=== PATIENT | female | born 1950 | race Caucasian/White ===

== ENCOUNTER → 2019-09-01 | Outpatient (CLI) | payer MEDICARE ==
--- NOTE | 2019-09-01 15:29 | BD ---
EXAMINATION TYPE: Axial Bone Density DATE OF EXAM: 09/01/2019 COMPARISON: 05/09/2010 CLINICAL HISTORY: Z 78.0 Height: 63.5 IN Weight: 223 LBS FRAX RISK QUESTIONS: Secondary Osteoporosis: 3. Menopause before 45: TOTAL HYST AGE 41 RISK FACTORS HISTORY OF: Family History of Osteoporosis: YES MOTHER Active: YES Postmenopausal woman: TOTAL HYST AGE 41 Take estrogen and/or progesterone medications: NOT NOW How long: TOOK CONTROL FOR 4 YEARS MEDICATIONS: Additional Medications: NEXIUM, BLOOD PRESSURE MEDS, VIT C, EXAM MEASUREMENTS: Bone mineral densitometry was performed using the [employer] System. Bone mineral density as measured about the Lumbar spine is: ----- L1-L4(G/cm2): 1.368 T Score Values are as follows: ----- L2: 1.8 ----- L3: 1.2 ----- L4: 1.5 ----- L1-L4: 1.6 Bone mineral density has: Increased 4.2% since study of: 05/09/2010 Bone mineral density about the R hip (g/cm2): 0.977 Bone mineral density about the L hip (g/cm2): 1.031 T Score values are as follows: -----R Neck: -0.4 -----L Neck: -0.2 -----R Total: 0.5 -----L Total: 0.3 Bone mineral density has: Increased 0.5% since study of: 05/09/2010 IMPRESSION: Normal (Values between +1 and -1 indicate normal bone mass). Consider repeating this study in 5 year s or sooner if there is some new clinical indication. NOTE: T-SCORE=SD OF THE YOUNG ADULT MEAN.
--- NOTE | 2019-09-03 13:51 | MM ---
Reason for exam: screening (asymptomatic). History: Patient is postmenopausal. Took hormonal contraceptives for 4 years. Physical Findings: A clinical breast exam by your physician is recommended on an annual basis and results should be correlated with mammographic findings. MG Screening Mammo w CAD Bilateral CC and MLO view(s) were taken. No prior studies available for comparison. There are scattered fibroglandular densities. Focal asymmetry left upper MLO view. ASSESSMENT: Incomplete: need additional imaging evaluation, BI-RAD 0 RECOMMENDATION: Special view mammogram of the left breast. If lesion persists on supplemental views, image directed ultrasound is recommended. [facility] will attempt to contact patient to return for supplemental views and ultrasound if indicated.
== END | disposition home or self-care (01) ==
LOC: RADMAMWWP 13:51
PROVIDERS: ATTEND Family Medicine
DX: Z12.31 Encounter for screening mammogram for malignant neoplasm of breast (principal); Z78.0 Asymptomatic menopausal state
CPT/HCPCS: 77067; 77080

== ENCOUNTER → 2019-09-25 | Outpatient (CLI) | payer MEDICARE ==
--- NOTE | 2019-09-28 08:09 | MM ---
Reason for exam: additional evaluation requested from abnormal screening. Last mammogram was performed 1 month ago. History: Patient is postmenopausal and history of other cancer. Took hormonal contraceptives for 4 years. Took estrogen for 10 years beginning at age 41. Physical Findings: Nurse did not find any significant physical abnormalities on exam. MG Work Up Mamm w CAD LT LM and spot compression MLO view(s) were taken of the left breast. Prior study comparison: September 01, 2019, bilateral MG screening mammo w CAD. No distinct lesion persists on additional views. These results were verbally communicated with the patient and result sheet given to the patient on 09/25/19. ASSESSMENT: Negative, BI-RAD 1 RECOMMENDATION: Return to routine screening mammogram schedule for both breasts.
== END | disposition home or self-care (01) ==
LOC: RADMAMWWP 14:43
PROVIDERS: ATTEND Family Medicine
DX: R92.8 Other abnormal and inconclusive findings on diagnostic imaging of breast (principal)
CPT/HCPCS: 77065

== ENCOUNTER 2025-03-23 05:39 | Inpatient (IN) | payer MEDICARE ==
[2025-03-23] MEDS: ATORVASTATIN 80 MG TAB PO STA (05:40)
[2025-03-23] MEDS ORDERED: ALPRAZolam 0.25 MG TAB PO PRN (05:40)
[2025-03-23] MEDS: ASPIRIN 325 MG TAB PO STA (05:40)
[2025-03-23] MEDS ORDERED: NITROGLYCERIN SL TABS 0.4 MG TAB SUBLINGUAL PRN (05:40)
[2025-03-23] MEDS ORDERED: ALPRAZolam 0.5 MG TAB PO PRN (05:40)
[2025-03-23 06:24] LABS: Glucose,Whole Blood 125 mg/dL (70-110)
[2025-03-23] MEDS: IV FLUID CONTINUATION 1,000 ML IV ONE (06:49)
[2025-03-23] MEDS: fentaNYL (PF) 50 MCG/ML 2 ML AMP IVP ONE (07:35)
[2025-03-23] MEDS: LIDOCAINE 1% INJ 10MG/ML (20 ML MDV) SQ ONE (07:36)
[2025-03-23] MEDS: VERAPAMIL SYRINGE (5 MG/10 ML) INTRAARTER ONE (07:37)
[2025-03-23] MEDS: HEPARIN SODIUM,PORCINE 10,000 UNIT in SODIUM CHLORIDE 0.9% 1,000 ML IRRIGATION PRN (07:39)
[2025-03-23] MEDS: HEPARIN SODIUM,PORCINE (1 ML) 2,500 UNIT in SODIUM CHLORIDE 0.9% 250 ML IRRIGATION PRN (07:39)
[2025-03-23] MEDS: HEPARIN SODIUM 1,000 UN/ML (10ML VL) IVP ONE (07:45)
[2025-03-23] MEDS: IOPAMIDOL-370 100ML BTL INJ ONE (07:56)
[2025-03-23] MEDS ORDERED: RX INFO: IV CONTRAST WAS GIVEN 1 EACH MISC MISCELLANE PRN (08:14)
[2025-03-23] MEDS: SODIUM CHLORIDE 0.9% 1,000 ML IV SCH (08:15)
--- NOTE | 2025-03-23 08:21 | P.CARDCATH ---
Date of Procedure: 03/23/25 Description of Procedure: Cardiac Catheterization: The patient is a 75-year-old female with a history of hyperlipidemia, hypertension, diabetes who has been complaining of episodes of exertional chest discomfort. She had an abnormal MPI. Recommendations were made regarding cardiac catheterization, the risks and the complications were discussed with the patient who is in full understanding and agreement. Procedure Description: Patient was brought to medical lab specialist in fasting semi-sedated state after receiving Fentanyl and Benadryl achieiving moderate conscious sedated state. Using Xylocaine Anesthesia and modified Seldinger technique, a 6-Portuguese sheath was introduced in the right radial artery . Subsequently, selective coronary angiography was performed using a 5-Portuguese 3.5 bend left Julio and 5 bend right catheter. Multiple views of the coronary artery including hemiaxial views were obtained. The 5 Portuguese pigtail catheter was used to cross the aortic valve and LVEDP was calculated. Following that, catheter and sheath were removed. Hemostasis was obtained with deployment of vascular band . There was no immediate complication. Patient was returned to room in stable condition. Of note, the patient received a total of 5000 units of intravenous heparin as well as intra-arterial verapamil. findings: Fluoroscopy: Severe calcifications of the coronary arteries was noted Left main: This is a large size vessel, bifurcating into LAD and left circumflex, the distal left main has a 50 to 60% plaque LAD: This is a large size vessel, tapers down in the distal third. It gives rise to 2 diagonal branch proximally that has a 50 to 60% plaque at the ostium. The LAD after the takeoff of the first septal metal moulder's assistant has a 95% stenosis, the rest of the vessel has no high-grade stenosis Left circumflex: This is a nondominant vessel, giving rise to a large obtuse marginal branch. The proximal left circumflex has a 60 to 70% stenosis involving the takeoff of the first obtuse marginal branch RCA: This is a large dominant vessel, heavily calcified. It has 99% stenosis at the ostium with slow flow distally. There is collateral from the LAD toward the right PDA Left Ventriculogram: Not performed Hemodynamics: There was no gradient across aortic valve, LVEDP was 16-20 mmHg Conclusion: 1. Calcified coronary arteries 2. Significant disease in the distal left main 3. Severe disease in the ostium of the RCA and proximal LAD 4. Moderate severe disease in the proximal left circumflex Recommendations: In view of the anatomy and the risk factors I have recommended to proceed with evaluation for coronary artery bypass grafting. The findings and the recommendations were discussed with the patient and the family and they were in full understanding and agreement. Duration of sedation is 20 minutes.
[2025-03-23 11:38] LABS: Bilirubin,Urine Negative (Negative); Blood,Urine Negative (Negative); Color,Urine Colorless; Glucose,Urine (UA) Negative (Negative); Ketones,Urine Negative (Negative); Leukocyte Esterase,Urine Negative (Negative); Nitrite,Urine Negative (Negative); PH, Urine 7.0 (5.0-8.0); Protein,Urine Negative (Negative); Specific Gravity,Urine 1.026 (1.001-1.035); Urobilinogen,Urine <2.0 mg/dL (<2.0)
[2025-03-23 11:40] LABS: Glucose,Whole Blood 104 mg/dL (70-110)
--- NOTE | 2025-03-23 12:09 | XR ---
EXAMINATION TYPE: XR chest 2V DATE OF EXAM: 03/23/2025 12:03 PM COMPARISON: None TECHNIQUE: XR chest 2V Frontal and lateral views of the chest. CLINICAL INDICATION:Female, 75 years old with history of PreOp Cardiac Surgery; FINDINGS: Lungs/Pleura: There is no evidence of pleural effusion, focal consolidation, or pneumothorax. Pulmonary vascularity: Central pulmonary vasculature prominence. Heart/mediastinum: Cardiomediastinal silhouette is prominent in size. Musculoskeletal: No acute osseous pathology. DISH of the thoracic spine. IMPRESSION: No acute cardiopulmonary disease/process. [facility], , 03/23/2025 12:07 PM
[2025-03-23] MEDS ORDERED: DEXTROSE 50% SYRINGE 50 ML IVP PRN ×2 (12:28)
[2025-03-23] MEDS ORDERED: FLUTICASONE NASAL 50MCG/SPRAY 16GM BTL INTRANASAL PRN (12:29)
[2025-03-23] MEDS: LINAGLIPTIN 5 MG TABLET PO SCH (12:50)
--- NOTE | 2025-03-23 13:23 | P.GSCN ---
History of Present Illness Consult date: 03/23/25 Reason for Consult: Multivessel coronary artery disease, with left main disease Requesting physician: Garrett Cavanaugh History of present illness: This is a 75-year-old female patient who follows as an outpatient with Dr. Awilda Callahan for her primary care and with Dr. Cavanaugh for her cardiology care. She has a past medical history significant for hypertension, hyperlipidemia, paroxysmal atrial fibrillation on Xarelto for anticoagulation as an outpatient, diabetes mellitus type 2, recent abnormal stress test, mild tricuspid valve regurgitation, moderate mitral valve regurgitation, obesity with a BMI of 38.1 kg/m, gastroesophageal reflux disease, asthma, remote history of COVID in 2019, and is a lifetime non-smoker. In December 2024 according to the patient was hospitalized for 4 days due to some atrial fibrillation with rapid ventricular response. Has follow-up after discharge she underwent a nuclear Anastacia scan Cardiolite stress test on January 25, 2025. The results of the stress test showed nondiagnostic electrocardiographic stress test, and abnormal myocardial perfusion imaging with a large size area of stress-induced ischemia involving the inferior and inferoapical wall with segmental wall motion abnormality in the inferobasal wall consistent with stress-induced ischemia in the right coronary artery territory. Recently, the patient reports she has been having complaints of chest pressure/pain off and on since July 2024. She reports these episodes of chest pressure comes on with activity, and some associated shortness of breath, nausea and fatigue. She denies any recent fever, chills, vomiting, cough, headache, hemoptysis, hematemesis, diaphoresis, presyncope or syncope. In December 2024 the patient underwent a transthoracic 2D echocardiogram which revealed a left ventricular systolic function to be normal with an ejection fraction of 55 to 60%, moderate mitral valve regurgitation, mild tricuspid valve regurgitation and trace to mild pulmonic valve regurgitation. Subsequently, due to the patient's continued episodes of chest discomfort, shortness of breath, and her recent abnormal stress test she was recommended to undergo a cardiac catheterization which was completed today by Dr. Cavanaugh. The heart catheterization revealed calcified coronary arteries with a 50 to 60% stenosis to her distal left main coronary artery, a 95% stenosis to her left anterior descending coronary artery after the takeoff of the first septal physical therapy aides teacher, 2 diagonal branch proximally with a 50 to 60% ostial stenosis, a 60 to 70% stenosis to her proximal left circumflex coronary artery, and a 99% stenosis to the ostium of the right coronary artery. Due to the findings on the cardiac catheterization a consult was placed to Dr. James Ellis from cardiothoracic surgery for further evaluation and treatment recommendations including myocardial revascularization surgery. Review of Systems A review of systems was completed and was negative except except as mentioned in the HPI. Past Medical History Past Medical History: Atrial Fibrillation, Asthma, Diabetes Mellitus, GERD/Reflux, Hyperlipidemia, Hypertension Additional Past Medical History / Comment(s): chest discomfort w/ activity, seasonal allergies, IBS-resolved since discontinued Prilosec. Draining boil -R breast. Hospitalized w/ new onset paroxysmal atrial fibrillation in December 2024. History of Any Multi-Drug Resistant Organisms: None Reported Past Surgical History: Cholecystectomy, Hysterectomy Additional Past Surgical History / Comment(s): Metal clip placed during gallbladder surgery. B/L cataract removal w/ lens implants. Past Anesthesia/Blood Transfusion Reactions: Previous Problems w/ Anesthesia, Postoperative Nausea & Vomiting (PONV) Additional Past Anesthesia/Blood Transfusion Reaction / Comm: Woke up nauseous after laparoscopic procedure prior to hysterectomy. No hx of blood transfusion. Smoking Status: Never smoker Past Alcohol Use History: Rare Past Drug Use History: None Reported - Past Family History Mother Family Medical History: Cancer (Cancer of the cervix), Coronary Artery Disease (CAD), Myocardial Infarction (MA) Additional Family Medical History / Comment(s): Maternal grandmother w/ heart disease. Father Additional Family Medical History / Comment(s): Father had pacemaker. Paternal uncle w/ hx of open heart surgery. Paternal uncle and grandfather had lung CA. Medications and Allergies Home Medications Medication Instructions Recorded Confirmed Type Atorvastatin [Lipitor] 40 mg PO HS 03/22/25 03/23/25 History Calcium Carbonate [Tums] 500 mg PO DAILY PRN 03/22/25 03/22/25 History Cetirizine HCl [Zyrtec] 10 mg PO DAILY PRN 03/22/25 03/22/25 History Cholecalciferol [Vitamin D3 (25 1 dose PO DAILY 03/22/25 03/22/25 History Mcg = 1000 Iu)] Famotidine [Pepcid] 40 mg PO HS 03/22/25 03/23/25 History Fluticasone Nasal [place] [Flonase 1 spray INTRANASAL DAILY PRN 03/22/25 03/23/25 History Nasal [place]] Furosemide [Lasix] 20 mg PO DAILY 03/22/25 03/23/25 History Losartan [Cozaar] 50 mg PO DAILY 03/22/25 03/23/25 History Magnesium 1 dose PO DAILY 03/22/25 03/22/25 History Metoprolol Tartrate [Lopressor] 50 mg PO BID 03/22/25 03/23/25 History Multivitamins, Thera [Multivitamin 1 tab PO DAILY 03/22/25 03/22/25 History (formulary)] Rivaroxaban [Xarelto] 20 mg PO DAILY 03/22/25 03/22/25 History Thiamine [Vitamin B-1] 1 dose PO DAILY 03/22/25 03/22/25 History Zinc Gluconate [Zinc] 1 dose PO DAILY 03/22/25 03/22/25 History sitaGLIPtin [Januvia] 25 mg PO DAILY 03/22/25 03/22/25 History Allergies Allergy/AdvReac Type Severity Reaction Status Date / Time levofloxacin [From Levaquin] Allergy Rash/Hives Verified 03/22/25 12:06 lisinopril Allergy Rash/Hives Verified 03/22/25 12:06 metformin AdvReac Diarrhea Verified 03/22/25 12:06 bandaid adhesive Allergy Rash skin Uncoded 03/22/25 14:37 irritation Surgical - Exam Vital Signs Temp Pulse Resp BP Pulse Ox 97.1 F L 62 16 172/65 98 03/23/25 06:18 03/23/25 06:18 03/23/25 06:18 03/23/25 06:18 03/23/25 06:18 - General well developed, well nourished, no distress, no pain, obese - Eyes PERRL, normal ocular movement, no pale, no icteric - ENT normal pinna, normal nares, normal mucosa, no hearing loss, no congestion, dentures (Upper plate) - Respiratory Lungs essentially clear throughout. No wheezes, rhonchi or crackles. R espirations are symmetrical and nonlabored. - Cardiovascular Regular rhythm and rate. S1 and S2 present, negative for S3, gallop or murmur. No edema present. - Abdomen Abdomen is soft, nontender and nondistended. Active bowel sounds present all 4 abdominal quadrants. No guarding or rigidity. No organomegaly appreciated. - Genitourinary Deferred - Rectum Deferred - Integumentary Skin is warm and dry. No clubbing or cyanosis is present. no rash, no growths, no abnormal pigmentation - Neurologic No focal deficits. - Musculoskeletal Moves all 4 extremities with equal strength bilateral. normal gait, normal posture - Psychiatric oriented to time, oriented to person, oriented to place, speech is normal, memory intact Results - Labs Abnormal Lab Results - Last 24 Hours (Table) 03/23/25 Range/Units 06:21 POC Glucose (mg/dL) 125 H (70-110) mg/dL - Imaging Additional studies: Stress test results, transthoracic 2D echocardiogram results and cardiac catheterization results reviewed. Assessment and Plan Assessment: Multivessel coronary artery disease with left main disease Recent abnormal stress test Hypertension Hyperlipidemia Paroxysmal atrial fibrillation on Xarelto as an outpatient, last dose of Xarelto was on March 19, 2025, currently in normal sinus rhythm Per transthoracic 2D echocardiogram, ejection fraction 55 to 60%, moderate mitral valve regurgitation, mild tricuspid valve regurgitation, and trace to mild pulmonic valve regurgitation Diabetes mellitus type 2 Asthma Remote history of COVID-19 in 2019 Lifetime non-smoker Plan: The patient was seen and examined at her bedside in the extended stay unit. Her is present at her bedside. Her chart and diagnostics were reviewed. Her case was discussed in detail with Dr. James Ellis from cardiothoracic [facility]. The usual course of myocardial vascularization surgery was discussed with the patient and the family. A clinical frailty score was calculated and equals 2. A 5 m walk test was completed with the patient, time 1: Seconds, time 2: Seconds, time 3: Seconds. Patient tolerated well without complaints. Preoperative testing and preoperative teaching has been initiated. The patient will be scheduled for off-pump myocardial revascularization surgery with left internal mammary artery, possible left radial artery harvest, endoscopic vein harvest, exclusion left atrial appendage, bilateral pulmonary vein isolation and intraoperative transesophageal echocardiogram to be completed on March 25, [address] James Ellis. Once the patient's preoperative testing results have been obtained an STS risk or will be calculated and discussed with the patient. Medical management of other comorbidities per internal medicine and cardiology services. Dr. Gomez from pulmonary/critical care medicine will be consulted for pulmonary clearance prior to surgery. More recommendations to follow based on patient's clinical course. Continue to optimize medical management with aspirin, statin and beta-zhane. Thank you Dr. Cavanaugh for this consult and we look forward to working with you in the care of this patient. I have personally seen and examined the patient, performed the documentation and the assessment and plan as written. Number of minutes spent on the visit: 30. DANIELLE Duran
[2025-03-23 14:14] LABS: Basophils # (A) 0.04 10*3/uL (0.00-0.10); Basophils % (A) 0.5 %; Eosinophils # (A) 0.05 10*3/uL (0.04-0.35); Eosinophils % (A) 0.6 %; HCT 38.4 % (37.2-46.3); HGB 12.5 g/dL (12.0-15.0); Lymphocytes # (A) 1.38 10*3/uL (0.90-5.00); Lymphocytes % (A) 16.8 %; MCH 28.0 pg (27.0-32.0); MCHC 32.6 g/dL (32.0-37.0); MCV 86.1 fL (80.0-97.0); Monocytes # (A) 0.41 10*3/uL (0.20-1.00); Monocytes % (A) 5.0 %; Neutrophils # (A) 6.30 10*3/uL (1.80-7.70); Neutrophils % (A) 76.9 %; Platelet Count 221 10*3/uL (140-440); RBC 4.46 10*6/uL (4.10-5.20); RDW 14.1 % (11.5-14.5); WBC 8.20 10*3/uL (4.50-10.00)
--- NOTE | 2025-03-23 14:31 | CT ---
EXAMINATION TYPE: CT chest wo con DATE OF EXAM: 03/23/2025 COMPARISON: None CLINICAL INDICATION: Female, 75 years old with history of Evaluate aorta preop CABG; [facility], Evaluate ao rta preop CABG TECHNIQUE: CT scan of the thorax is performed without IV contrast. CT DLP: 508.[address] CTDI: mGy Automated exposure control for dose reduction was used. FINDINGS: The lungs are clear and there is no suspicious lung mass or nodule. There is a single 2 to 3 mm right upper lobe pulmonary nodule and a few scattered micronodules. There is no airspace consolidation or abnormal interstitial density. There is no pleural effusion or pneumothorax. The heart is not enlarged. Descending thoracic aorta is not enlarged and is approximately 3 cm in shayy iber. There is no mediastinal, hilar or axillary adenopathy. Limited scanning through the upper abdomen reveals cholecystectomy. IMPRESSION: 1. No suspicious lung mass or nodule. 2. No acute cardiopulmonary disease. 3. 3 cm nonenlarged ascending thoracic aorta. 4. Cholecystectomy [facility], , 03/23/2025 2:29 PM
[2025-03-23 14:33] LABS: ALT 25 U/L (4-34); AST 26 U/L (14-36); African American GFR (CKD) 36 (>60 ml/min/1.73 sqM); Albumin 4.0 g/dL (3.5-5.0); Alkaline Phosphatase 106 U/L (38-126); Anion Gap 9 mmol/L; Blood Urea Nitrogen 32 mg/dL (7-17); Calcium 9.5 mg/dL (8.4-10.2); Carbon Dioxide 28 mmol/L (22-30); Chloride 101 mmol/L (98-107); Glucose 136 mg/dL (74-99); Magnesium 1.9 mg/dL (1.6-2.3); Non-African American GFR(CKD) 31 (>60 ml/min/1.73 sqM); Potassium 4.6 mmol/L (3.5-5.1); Sodium 138 mmol/L (137-145); Total Protein 7.0 g/dL (6.3-8.2)
--- NOTE | 2025-03-23 14:33 | P.HPIM ---
History of Present Illness H&P Date: 03/23/25 This is a very pleasant 75-year-old female who was brought in by her registered nurse cardiovascular icu Dr. Cavanaugh and underwent cardiac catheterization this morning as she has been having increasing weakness with shortness of breath and intermittent nausea with intermittent chest pain. Cardiac catheterization revealed calcified coronary arteries, significant disease in the distal left main, severe disease in the ostium of the RCA and proximal LAD, and moderate severe disease in the proximal left circumflex. Cardiology consulted CT surgery for evaluation of possible coronary artery bypass grafting. Patient is being admitted to medicine with CT surgery on consult as well as cardiology. Patient follows with Dr. Deluca in the outpatient setting with a past medical history of atrial fibrillation, asthma, diabetes mellitus, GERD, hyperlipidemia, hypertension, IBS, obesity. Patient rarely drinks, denies any smoking and denies illicit drug use. Patient was recently hospitalized over at [facility] in December of this year and was noted to have new onset atrial fibrillation. Patient reports since then she has been having some increasing shortness of breath and finding it difficult to perform activities that has been progressively getting worse over the last few weeks. CT surgery following and patient is being initiated on CABG workup protocol. Will add Accu-Cheks AC and at bedtime along with insulin regimen for now and we will follow-up on repeat labs in the a.m. REVIEW OF SYSTEMS: CONSTITUTIONAL: No fever, no malaise, no fatigue. HEENT: No recent visual problems or hearing problems. Denied any sore throat. CARDIOVASCULAR: Reports occasional chest pain with exertion, orthopnea, PND, no palpitations, no syncope. PULMONARY: Reports of intermittent shortness of breath, no cough, no hemoptysis. GASTROINTESTINAL: No diarrhea, no nausea, no vomiting, no abdominal pain. NEUROLOGICAL: No headaches, no weakness, no numbness. HEMATOLOGICAL: Denies any bleeding or petechiae. GENITOURINARY: Denies any burning micturition, frequency, or urgency. MUSCULOSKELETAL/RHEUMATOLOGICAL: Denies any joint pain, swelling, or any muscle pain. ENDOCRINE: Denies any polyuria or polydipsia. The rest of the 14-point review of systems is negative. PHYSICAL EXAMINATION: GENERAL: The patient is alert and oriented x3, not in any acute distress. Well developed, elderly appearing, obese HEENT: Pupils are round and equally reacting to light. EOMI. No scleral icterus. No conjunctival pallor. Normocephalic, atraumatic. No pharyngeal erythema. No thyromegaly. CARDIOVASCULAR: S1 and S2 muffled, irregular PULMONARY: Diminished breath sounds bilaterally otherwise chest is clear to auscultation, no wheezing or crackles. ABDOMEN: Soft, obese, nontender, nondistended, normoactive bowel sounds. No pa lpable organomegaly. MUSCULOSKELETAL: No joint swelling or deformity. EXTREMITIES: No cyanosis, clubbing, or pedal edema. NEUROLOGICAL: Gross neurological examination did not reveal any focal deficits. SKIN: No rashes. Assessment: Status postcardiac catheterization today revealing triple-vessel disease with significant disease of the distal left main, ostium of the RCA and proximal LAD, as well as proximal left circumflex, currently undergoing CABG workup with tentative surgery on , 03/25/[address] surgery History of atrial fibrillation, new onset in December 2024 History of asthma, not in exacerbation Diabetes mellitus, type II GERD Hyperlipidemia Hypertension Obesity with a BMI of 38.1 History of previous IBS, resolved GI prophylaxis DVT prophylaxis Full code Plan: Patient underwent cardiac catheterization this morning with Dr. Cavanaugh her primary registered nurse cardiovascular icu and was noted to have triple-vessel disease is currently being evaluated by CT surgery undergoing possible CABG workup and tentatively scheduled for surgical intervention on , 03/25/2025. Patient will remain hospitalized and will place consult to pulmonary winder operator as well as cardiology and continue ongoing CT surgery workup Continue Accu-Cheks AC and at bedtime and will add sliding scale and adjust insulins accordingly, hemoglobin A1c is pending Follow-up on repeat labs and replace electrolytes per protocol Home meds will be reviewed and resumed as appropriate The impression and plan of care has been dictated by Billie Padilla, Nurse Practitioner as directed. Dr. Jazmyne MD I have performed a history and examination and MDM of this patient, discussed the same with the dictator, and agree with the dictator's assessment and plan as written ,documented as a scribe. Based on total visit time, I have performed more than 50% of the visit. Past Medical History Past Medical History: Atrial Fibrillation, Diabetes Mellitus, Hyperlipidemia, Hypertension Additional Past Medical History / Comment(s): chest discomfort w/ activity, seasonal allergies, IBS-resolved since discontinued Prilosec. Draining boil -R breast. Hospitalized w/ new onset Afib December 2024. History of Any Multi-Drug Resistant Organisms: None Reported Past Surgical History: Cholecystectomy, Hysterectomy Additional Past Surgical History / Comment(s): Metal clip placed during gallbladder surgery. B/L cataract removal w/ lens implants. Past Anesthesia/Blood Transfusion Reactions: Previous Problems w/ Anesthesia, Postoperative Nausea & Vomiting (PONV) Additional Past Anesthesia/Blood Transfusion Reaction / Comment(s): Woke up nauseous after laparoscopic procedure prior to hysterectomy. No hx of blood transfusion. Smoking Status: Never smoker - Past Family History Mother Family Medical History: Myocardial Infarction ([place]) Additional Family Medical History / Comment(s): Maternal grandmother w/ heart disease. Father Additional Family Medical History / Comment(s): Father had pacemaker. Paternal uncle w/ hx of open heart surgery. Paternal uncle and grandfather had lung CA. Medications and Allergies Home Medications Medication Instructions Recorded Confirmed Type Atorvastatin [Lipitor] 40 mg PO HS 03/22/25 03/23/25 History Calcium Carbonate [Tums] 500 mg PO DAILY PRN 03/22/25 03/22/25 History Cetirizine HCl [Zyrtec] 10 mg PO DAILY PRN 03/22/25 03/22/25 History Cholecalciferol [Vitamin D3 (25 1 dose PO DAILY 03/22/25 03/22/25 History Mcg = 1000 Iu)] Famotidine [Pepcid] 40 mg PO HS 03/22/25 03/23/25 History Fluticasone Nasal [place] [Flonase 1 spray INTRANASAL DAILY PRN 03/22/25 03/23/25 History Nasal [place]] Furosemide [Lasix] 20 mg PO DAILY 03/22/25 03/23/25 History Losartan [Cozaar] 50 mg PO DAILY 03/22/25 03/23/25 History Magnesium 1 dose PO DAILY 03/22/25 03/22/25 History Metoprolol Tartrate [Lopressor] 50 mg PO BID 03/22/25 03/23/25 History Multivitamins, Thera [Multivitamin 1 tab PO DAILY 03/22/25 03/22/25 History (formulary)] Rivaroxaban [Xarelto] 20 mg PO DAILY 03/22/25 03/22/25 History Thiamine [Vitamin B-1] 1 dose PO DAILY 03/22/25 03/22/25 History Zinc Gluconate [Zinc] 1 dose PO DAILY 03/22/25 03/22/25 History sitaGLIPtin [Januvia] 25 mg PO DAILY 03/22/25 03/22/25 History Allergies Allergy/AdvReac Type Severity Reaction Status Date / Time levofloxacin [From Levaquin] Allergy Rash/Hives Verified 03/22/25 12:06 lisinopril Allergy Rash/Hives Verified 03/22/25 12:06 metformin AdvReac Diarrhea Verified 03/22/25 12:06 bandaid adhesive Allergy Rash skin Uncoded 03/22/25 14:37 irritation Physical Exam Vitals: Vital Signs Temp Pulse Resp BP BP Pulse Ox 03/23/25 11:34 59 L 20 155/66 99 03/23/25 09:59 61 20 147/65 98 03/23/25 09:28 65 16 134/63 98 03/23/25 08:59 66 16 132/60 97 03/23/25 08:44 62 16 110/70 99 03/23/25 08:29 66 16 138/65 98 03/23/25 08:14 67 16 170/55 98 03/23/25 06:20 156/55 03/23/25 06:18 97.1 F L 62 16 172/65 98 Intake and Output 03/22/25 03/23/25 03/23/25 22:59 06:59 14:59 Intake Total 400 200 Balance 400 200 Intake: IV 400 200 Other: # Voids 1 Weight 100.8 kg Results CBC & Chem 7: 03/23/25 13:47 Labs: Abnormal Lab Results - Last 24 Hours (Table) 03/23/25 Range/Units 06:21 POC Glucose (mg/dL) 125 H (70-110) mg/dL
[2025-03-23 14:36] LABS: INR 1.0 (<1.2); Partial Thromboplastin Time 26.4 sec (22.0-30.0); Prothrombin Time 10.7 sec (10.0-12.5)
[2025-03-23] MEDS: SODIUM CHLORIDE 0.9% 1,000 ML in EMPTY BAG 1 BAG IV ONE (15:25)
[2025-03-23] MEDS ORDERED: Magnesium Replacement Protocol 1 EACH MISC MISCELLANE PRN (15:31)
--- NOTE | 2025-03-23 15:31 | US ---
EXAMINATION TYPE: US vein mapping BILAT DATE OF EXAM: 03/23/2025 3:23 PM COMPARISON: NONE CLINICAL INDICATION: Female, 75 years old with history of PreOp Cardiac Surgery; preop, Preop- Cardia c Surgery TECHNIQUE: Grayscale and color Doppler imaging of the lower extremity venous system. SIDE PERFORMED: Bilateral FINDINGS: DUPLEX FINDINGS: Greater Saphenous: Color flow seen Lesser Saphenous: Color flow seen Measurements in mm: Right Greater Saphenous: Groin: 5.4 x 5.1 mm High Thigh: 4.5 x 3.8 mm Mid Thigh: 3.8 x 3.5 mm Above Knee: 2.6 x 2.2 mm Knee: 3.6 x 2.8 mm Below Knee: 2.1 x 1.2 mm Mid Calf: 1.3 x .9 mm At Ankle: 2.6 x 2.0 mm Left Greater Saphenous: Groin: 5.7 x 5.1 mm High Thigh: 5.8 x 3.9 mm Mid Thigh: 4.7 x 3.5 mm Above Knee: 4.7 x 3.8 mm Knee: 3.7 x 2.4 mm Below Knee: 2.7 x 2.3 mm Mid Calf: 3.0 x 2.3 mm At Ankle: 3.1 x 2.8 mm IMPRESSION: 1. No evidence for occlusion. 2. GSV measurements listed above. 3. Performing surgeon to determine viability as conduit. [facility], , 03/23/2025 3:28 PM
--- NOTE | 2025-03-23 15:32 | US ---
EXAMINATION TYPE: Pre-Operative Non-Invasive Evaluation of the hand for Potential Radial Artery Conr[place] , Measurements only DATE OF EXAM: 03/23/2025 3:23 PM CLINICAL INDICATION: Female, 75 years old with history of Pre-Op Cardiac Surgery; preop, Preop- Cardi ac Surgery TECHNIQUE:Grayscale and color Doppler imaging of the radial artery(s) SIDE PERFORMED: Left FINDINGS: Dominant hand: Right Duplex Findings: Radial Artery: Color flow seen Measurements in mm, transverse view: Left Radial: Proximal: 1.0 x .8 mm Mid: 2.0 x 1.5 mm Distal: 1.7 x 1.4 mm IMPRESSION: 1. No evidence for vascular occlusion. 2. Measurements as described above. [facility], , 03/23/2025 3:29 PM
--- NOTE | 2025-03-23 15:34 | US ---
EXAMINATION TYPE: US carotid duplex BILAT DATE OF EXAM: 03/23/2025 COMPARISON: NONE CLINICAL INDICATION: Female, 75 years old with history of Pre-Op Cardiac Surgery; preop Additional History: Z01.81- Pre-operative exam TECHNIQUE: Grayscale, color Doppler and spectral Doppler evaluation of the bilateral carotid systems and vertebral arteries. Indirect Doppler criteria was utilized. FINDINGS: EXAM MEASUREMENTS: RIGHT: Peak Systolic Velocity (PSV) cm/sec ----- Right CCA: 53.7 ----- Right ICA: 109.2 ----- Right ECA: 93.0 ICA/CCA ratio: 2.0 RIGHT: End Diastole cm/sec ----- Right CCA: 10.9 ----- Right ICA: 25.2 ----- Right ECA: 2.9 LEFT: Peak Systolic Velocity (PSV) cm/sec ----- Left CCA: 77.0 ----- Left ICA: 101.5 ----- Left ECA: 113.4 ICA/CCA ratio: 1.3 LEFT: End Diastole cm/sec ----- Left CCA: 19.5 ----- Left ICA: 20.7 ----- Left ECA: 7.2 VERTEBRALS (direction of flow): Right Vertebral: Antegrade Left Vertebral: Antegrade Rhythm: Normal HEAD CORRECTION OFFICER NOTES: plaque in right bulb Color Doppler imaging shows patency with blood flow throughout the carotid artery. Spectral waveforms are within normal limits. IMPRESSION: Right: Less than 50% stenosis of the carotid bifurcation. Left: Less than 50% stenosis of the carotid bifurcation. Criteria for Assigning % of Stenosis / Diameter reduction (Estimation based on the indirect measurements of the internal carotid artery velocities (ICA PSV). 1. Normal (no stenosis)=ICA PSV < 180 cm/s: ratio < 2.0: ICA EDV<40 cm/s. 2. Less than 50% stenosis=ICA PSV < 180 cm/s: ratio < 2.0: ICA EDV<40 cm/s. 3. 50 to 69% stenosis=ICA PSV of 180 to 230 cm/s: ration 2.0 ? 4.0: ICA EDV 40-100 cm/s. PSV 125-180 cm/sec and ICA/CCA PSV Ratio ? 2.0 is also consistent with 50-69% stenosis 4. Greater than 70% stenosis to near occlusion= ICA PSV > 230 cm/s: ratio > 4.0: ICA EDV > 100 cm/s. 5. Near occlusion= ICA PSV velocities may be low or undetectable: variable ratio and ICA EDV. 6. Total occlusion=unable to detect flow. [facility], , 03/23/2025 3:31 PM
[2025-03-23] MEDS: MAGNESIUM SULFATE-D5W PMX 1 GM in DEXTROSE/WATER 1 100ML.BAG IVPB ONE (16:21)
[2025-03-23 16:56] LABS: Glucose,Whole Blood 95 mg/dL (70-110)
[2025-03-23] MEDS: INSULIN LISPRO (HumaLOG) 100 UNIT/ML 10 mL VL SQ SCH (17:01)
[2025-03-23 19:57] LABS: Cholesterol 128.00 mg/dL (0.00-200.00); HDL Cholesterol 53.90 mg/dL (40.00-60.00); LDL Cholesterol,Calculated 31.7 mg/dL (0.0-131.0); Triglycerides 212.00 mg/dL (0.00-149.00); VLDL Calculation 42.40 mg/dL (5.00-40.00)
[2025-03-23 20:20] LABS: Glucose,Whole Blood 100 mg/dL (70-110)
[2025-03-23] MEDS: MUPIROCIN 2% OINT 22 GM TUBE NASAL SCH (20:57)
[2025-03-23] MEDS: METOPROLOL TARTRATE 50 MG TAB PO SCH (20:57)
[2025-03-23] MEDS: ATORVASTATIN 40 MG TAB PO SCH (20:57)
[2025-03-23 21:15] LABS: Hepatitis A Antibody IgM Nonreactive (Nonreactive); Hepatitis B Surface Antigen Nonreactive (Nonreactive); Hepatitis C IgG Antibody Nonreactive (Nonreactive)
[2025-03-24 06:36] LABS: Glucose,Whole Blood 96 mg/dL (70-110)
[2025-03-24 07:34] LABS: Basophils # (A) 0.04 10*3/uL (0.00-0.10); Basophils % (A) 0.5 %; Eosinophils # (A) 0.13 10*3/uL (0.04-0.35); Eosinophils % (A) 1.6 %; HCT 39.1 % (37.2-46.3); HGB 12.4 g/dL (12.0-15.0); Lymphocytes # (A) 2.11 10*3/uL (0.90-5.00); Lymphocytes % (A) 26.7 %; MCH 27.6 pg (27.0-32.0); MCHC 31.7 g/dL (32.0-37.0); MCV 87.1 fL (80.0-97.0); Monocytes # (A) 0.56 10*3/uL (0.20-1.00); Monocytes % (A) 7.1 %; Neutrophils # (A) 5.05 10*3/uL (1.80-7.70); Neutrophils % (A) 63.8 %; Platelet Count 211 10*3/uL (140-440); RBC 4.49 10*6/uL (4.10-5.20); RDW 14.2 % (11.5-14.5); WBC 7.91 10*3/uL (4.50-10.00)
[2025-03-24 07:43] LABS: ALT 23 U/L (4-34); AST 24 U/L (14-36); African American GFR (CKD) 41 (>60 ml/min/1.73 sqM); Albumin 3.9 g/dL (3.5-5.0); Alkaline Phosphatase 90 U/L (38-126); Anion Gap 8 mmol/L; Blood Urea Nitrogen 30 mg/dL (7-17); Calcium 9.3 mg/dL (8.4-10.2); Carbon Dioxide 29 mmol/L (22-30); Chloride 104 mmol/L (98-107); Glucose 101 mg/dL (74-99); Magnesium 2.2 mg/dL (1.6-2.3); Non-African American GFR(CKD) 35 (>60 ml/min/1.73 sqM); Potassium 4.7 mmol/L (3.5-5.1); Sodium 141 mmol/L (137-145); Total Protein 6.8 g/dL (6.3-8.2)
[2025-03-24] MEDS: MD COMMUNICATION TO PHARMACY 1 EACH MISC PO ONE ×4 (08:39→08:40)
[2025-03-24] MEDS: ASPIRIN 325 MG TAB PO SCH (08:44)
[2025-03-24] MEDS: MULTIVITAMINS, THERA 1 EACH TAB PO SCH (08:44)
[2025-03-24] MEDS ORDERED: LOSARTAN 50 MG TAB PO SCH (09:00)
--- NOTE | 2025-03-24 10:55 | P.PN ---
Subjective Progress Note Date: 03/24/25 Principal diagnosis: Multivessel coronary artery disease, with left main disease. Past medical history significant for hypertension, hyperlipidemia, paroxysmal atrial fibrillation on Xarelto for anticoagulation as an outpatient, diabetes mellitus type 2, recent abnormal stress test, mild tricuspid valve regurgitation, moderate mitral valve regurgitation, obesity with a BMI of 38.1 kg/m, gastroesophageal reflux disease, asthma, remote history of COVID in 2019, and is a lifetime non-smoker. The patient was seen and examined in follow-up today March 24, 2025 at her bedside on the third floor cardiac stepdown unit. She is currently ambulating in her room, and tolerating well. She denies any complaints of pain or shortness of breath. Preoperative teaching has been reinforced with the patient, and her questions have been answered. A preoperative cardiac surgery booklet has been given to the patient and reviewed with the patient. She is scheduled for off- pump myocardial revascularization surgery with left internal mammary artery, endoscopic vein harvest, exclusion left atrial appendage, pulmonary vein isolation and intraoperative transesophageal echocardiogram to be completed tomorrow March 25, [address] Dr. Ellis met with the patient today, reviewed the findings on the cardiac catheterization films with the patient. Treatment recommendations discussed with the patient including myocardial vascularization surgery. Risks and benefits including the STS risk core were discussed with the patient and knowing and understanding the risks the patient wished to proceed with the surgical option. Oxygen saturations are 99% on room air and she is achieving 3000 mL on her incentive spirometry with encouragement. Remote telemetry is showing normal sinus rhythm heart rate 60 bpm. Her last dose of Xarelto was on March 19, 2025. A 5 m walk test was completed with the patient yesterday 03/23/2025, time 1: 2.98 seconds, time 2: 2.98 seconds, time 3: 3.11 seconds. Patient tolerated well without complaints. A clinical frailty score was calculated which equaled 2. A carotid duplex study was completed which showed less than 50% stenosis to her bilateral internal carotid arteries. Objective - Vital Signs Vital signs: Vital Signs Temp 97.8 F 03/24/25 04:00 Pulse 59 L 03/24/25 04:00 Resp 17 03/24/25 04:00 BP 148/62 03/24/25 04:00 Pulse Ox 99 03/24/25 04:00 FiO2 Intake & Output 03/23/25 03/24/25 03/24/25 18:59 06:59 18:59 Intake Total 836 240 Balance 836 240 Weight 100.4 kg Intake: IV 600 Oral 236 240 Other: Voiding Method Toilet Toilet # Voids 1 - Exam CONSTITUTIONAL: appears comfortable, cooperative, no apparent acute distress. HEENT: Neck is supple, no JVD, no lymphadenopathy. RESPIRATORY: Lungs sounds essentially clear throughout. Respirations are symmetrical and nonlabored. Currently on room air with oxygen saturations 99%. Able to achieve 3000 mL on their incentive spirometry. Strong cough. CARDIOVASCULAR: Regular rhythm and rate. S1 and S2 present, negative for S3, gallop or murmur. No calf pain or tenderness noted. GASTROINTESTINAL: Abdomen soft, nontender, nondistended. Active bowel sounds present 4 quadrants. Tolerating diet. Passing flatus. No guarding or rigidity. GENITOURINARY: Continues to void. INTEGUMENTARY: Skin is warm and dry with no evidence of clubbing or cyanosis. NEUROLOGIC: Cranial nerves II through XII intact. No focal deficits. MUSKULOSKELETAL: Able to move all extremities, strength equal bilaterally. PSYCHIATRIC: Alert and oriented to person place and time, appropriate affect, intact judgment and insight. - Allied health notes Allied health notes reviewed: nursing - Labs CBC & Chem 7: 03/24/25 06:33 03/24/25 06:33 Labs: Abnormal Lab Results - Last 24 Hours (Table) 03/23/25 03/23/25 03/24/25 Range/Units 13:47 13:47 06:33 MCHC (32.0-37.0) g/dL BUN 32 H (7-17) mg/dL Creatinine 1.60 H (0.52-1.04) mg/dL Glucose 136 H (74-99) mg/dL Hemoglobin A1c 6.5 H (<=6.0) % Triglycerides 212.00 H (0.00-149.00) mg/dL VLDL Cholesterol, Calc 42.40 H (5.00-40.00) mg/dL Crossmatch See Detail 03/24/25 03/24/25 Range/Units 06:33 06:33 MCHC 31.7 L (32.0-37.0) g/dL BUN 30 H (7-17) mg/dL Creatinine 1.44 H (0.52-1.04) mg/dL Glucose 101 H (74-99) mg/dL Hemoglobin A1c (<=6.0) % Triglycerides (0.00-149.00) mg/dL VLDL Cholesterol, Calc (5.00-40.00) mg/dL Crossmatch - Imaging and Cardiology Chest x-ray: report reviewed, image reviewed Carotid duplex study reviewed. Assessment and Plan Assessment: Multivessel coronary artery disease with left main disease Recent abnormal stress test Hypertension Hyperlipidemia Paroxysmal atrial fibrillation on Xarelto as an outpatient, last dose of Xarelto was on March 19, 2025, currently in normal sinus rhythm Per transthoracic 2D echocardiogram, ejection fraction 55 to 60%, moderate mitral valve regurgitation, mild tricuspid valve regurgitation, and trace to mild pulmonic valve regurgitation Diabetes mellitus type 2 Asthma Remote history of COVID-19 in 2019 Lifetime non-smoker Plan: Preoperative teaching has been reinforced with the patient. A 5 m walk test was completed with the patient yesterday 03/23/2025, time 1: 2.98 seconds, time 2: 2.98 seconds, time 3: 3.11 seconds. Patient tolerated well without complaints. Encourage use of incentive spirometry 10 times every hour while awake. An STS risk core was calculated and discussed with the patient. N.p.o. after midnight. The patient is scheduled for off-pump myocardial revascularization surgery with left internal mammary artery, endoscopic vein harvest, pulmonary vein isolation, exclusion left atrial appendage, and intraoperative transesophageal echo cardiogram tomorrow 03/25/2025 to be performed by Dr. James Ellis. Continue to optimize medical management with aspirin, statin and beta-zhane. More recommendations to follow based on patient's clinical course. Time with Patient: Greater than 30
[2025-03-24 11:29] LABS: Glucose,Whole Blood 94 mg/dL (70-110)
--- NOTE | 2025-03-24 11:46 | CA ---
Transthoracic Echo Report Name: Vibha Anand Age: 75 Gender: F : 1950 Exam Date: 03/24/2025 08:45 Exam Location: [facility] Ht (in): 64 Wt (lb): 221 Ordering Physician: Garrett Cavanaugh MD ([id number]) Attending/Referring Phys: [employer] Software Engineer Geno Garcia RDCS Procedure CPT: Indications: CAD Cardiac Hx: Technical Quality: Fair Contrast 1: Total Dose (mL): Contrast 2: Total Dose (mL): MEASUREMENTS (Male / Female) Normal Values 2D ECHO LV Diastolic Diameter PLAX 4.5 cm 4.2 - 5.9 / 3.9 - 5.3 cm LV Systolic Diameter PLAX 2.8 cm IVS Diastolic Thickness 1.4 cm 0.6 - 1.0 / 0.6 - 0.9 cm LVPW Diastolic Thickness 1.3 cm 0.6 - 1.0 / 0.6 - 0.9 cm LV Relative Wall Thickness 0.6 RV Internal Dim ED PLAX 2.5 cm LV Diastolic Volume MOD BP 74.9 cm??? 67 - 155 / 56 - 104 cm??? LV Systolic Volume MOD BP 24.9 cm??? 22 - 58 / 19 - 49 cm??? LV Ejection Fraction MOD BP 66.7 % >= 55 % LV Cardiac Index MOD BP 1399.9 cm???/min???m??? LV Diastolic Volume MOD 4C 67.2 cm??? LV Systolic Volume MOD 4C 30.0 cm??? LV Ejection Fraction MOD 4C 55.4 % LV Cardiac Index MOD 4C 1043.7 cm???/min???m??? LV Diastolic Length 4C 7.8 cm LV Systolic Length 4C 6.2 cm LV Diastolic Volume MOD 2C 82.0 cm??? LV Systolic Volume MOD 2C 29.4 cm??? LV Ejection Fraction MOD 2C 64.1 % LV Cardiac Index MOD 2C 1473.7 cm???/min???m??? LV Diastolic Length 2C 8.0 cm LV Systolic Length 2C 6.2 cm LA Volume 44.9 cm??? 18 - 58 / 22 - 52 cm??? LA Volume Index 20.7 cm???/m??? 16 - 28 cm???/m??? M-MODE Aortic Root Diameter MM 2.9 cm LA Systolic Diameter MM 4.5 cm LA Ao Ratio MM 1.5 AV Cusp Separation MM 1.9 cm DOPPLER AV Peak Velocity 149.0 cm/s AV Peak Gradient 8.9 mmHg MV Area PHT 4.2 cm??? Mitral E Point Velocity 85.2 cm/s Mitral A Point Velocity 72.3 cm/s Mitral E to A Ratio 1.2 MV Deceleration Time 181.5 ms FINDINGS Left Ventricle Left ventricular ejection fraction is estimated at 55-60%. Normal left ventricular systolic function with no obvious regional wall motion abnormalities. Moderately increased septal wall thickness. Mildly increased posterior wall thickness. Left ventricular cavity size normal. Right Ventricle Normal right ventricular size and function. Right ventricular systolic pressure within normal limits. Right Atrium Normal right atrial size. Left Atrium Mild left atrial dilatation. Mitral Valve Structurally normal mitral valve. No mitral stenosis. [id number] mitral regurgitation. Aortic Valve Trileaflet aortic valve. No aortic valve stenosis or regurgitation. Diffuse thickening (sclerosis) of the aortic valve cusps without reduced excursion. Tricuspid Valve Structurally normal tricuspid valve. Trace tricuspid regurgitation. No tricuspid stenosis. Pulmonic Valve Structurally normal pulmonic valve. Mild pulmonic regurgitation. No pulmonic stenosis. Pericardium No pericardial or pleural effusion. Aorta Normal size aortic root and proximal ascending aorta. CONCLUSIONS Reason: Coronary artery disease LVH with preserved systolic function Mild left atrial enlargement Previewed by: Dr. Jose Fisher MD (Electronically Signed) Final Date: 24 March 2025 11:45
[2025-03-24] MEDS: THIAMINE 100 MG TAB PO SCH (12:00)
--- NOTE | 2025-03-24 13:03 | P.CRDCN ---
History of Present Illness Consult date: 03/24/25 History of present illness: HISTORY OF PRESENTING ILLNESS: 77-year-old follows up with Dr. Cavanaugh. History of hypertension dyslipidemia paroxysmal atrial fibrillation anticoagulation with Xarelto. Type 2 diabetes. As an outpatient because of symptoms of palpitations and nonspecific symptoms of decreased exercise capacity increased fatigue shortness of breath she had a stress test done which was abnormal showing large reversible perfusion defect in inferior and inferoapical segments.. For this she underwent cardiac catheterization which showed 50 to 60% distal left main, 95% LAD after first septal takeoff, second annular branch had 50 to 60% ostial stenosis, 70% stenosis in proximal LCx, 99% stenosis in ostium of RCA. Due to multivessel disease, CT surgery team was requested to evaluate the patient for possible CABG . At the time of evaluation she is comfortable denies any active chest pain chest pressure shortness of breath. Right radial site appears intact with no signs of hematoma or bleeding, intact radial pulse. Labs and vitals were essentially within acceptable range ......................................................................... ..................................................................... [facility] Vitals: 145/80, heart rate 59 [facility] Labs: Hb 12.5, BUN 32, creatinine 1.6, repeat creatinine 1.4, A1c of 6.5, LDL 31, HDL 53, TG G212, TSH 2.6 ........................................................................... ................................................................... Prior cardiac testing: Echo EF 55%, mild concentric LVH, aortic sclerosis, mild to moderate mitral regurgitation, cardiac catheterization showed 50 to 60% distal left main, 95% LAD after first septal takeoff, second annular branch had 50 to 60% ostial stenosis, 70% stenosis in proximal LCx, 99% stenosis in ostium of RCA ........ ................................................................................ ...................................................... REVIEW OF SYSTEMS: 14 point review of system is negative except what is mentioned above in HPI. ..................................................................... ......................................................................... PHYSICAL EXAMINATION: Neck: Brisk carotid upstroke, no jugular venous distention. Lungs: Clear to auscultation. Heart: Regular rate and rhythm, S1-S2, , no murmur or rub. Abdomen: Soft nontender, positive bowel sounds. Extremities: No edema, intact distal pulses. Neuro: Alert, oritented, no focal deficits. Detailed neuro exam was not performed. .............................................................................. ................................................................ ASSESSMENT: # Multivessel CAD as described above # Paroxysmal atrial fibrillation, currently sinus rhythm # Type 2 diabetes # Essential hypertension, dyslipidemia # Obesity PLAN: I recommend CABG, pulmonary vein isolation with Arshad-Maze, left atrial appendage ligation Aspirin, Lipitor, beta-zhane Monitor blood pressure heart rate Supportive care Pedro Mays MD, FAC, RPVI Past Medical History Past Medical History: Atrial Fibrillation, Diabetes Mellitus, Hyperlipidemia, Hypertension Additional Past Medical History / Comment(s): chest discomfort w/ activity, seasonal allergies, IBS-resolved since discontinued Prilosec. Draining boil -R breast. Hospitalized w/ new onset Afib December 2024. History of Any Multi-Drug Resistant Organisms: None Reported Past Surgical History: Cholecystectomy, Hysterectomy Additional Past Surgical History / Comment(s): Metal clip placed during gallbla dder surgery. B/L cataract removal w/ lens implants. Past Anesthesia/Blood Transfusion Reactions: Previous Problems w/ Anesthesia, Postoperative Nausea & Vomiting (PONV) Additional Past Anesthesia/Blood Transfusion Reaction / Comment(s): Woke up naus eous after laparoscopic procedure prior to hysterectomy. No hx of blood transfusion. Smoking Status: Never smoker - Past Family History Mother Family Medical History: Myocardial Infarction ([place]) Additional Family Medical History / Comment(s): Maternal grandmother w/ heart disease. Father Additional Family Medical History / Comment(s): Father had pacemaker. Paternal uncle w/ hx of open heart surgery. Paternal uncle and grandfather had lung CA. Medications and Allergies Home Medications Medication Instructions Recorded Confirmed Type Atorvastatin [Lipitor] 40 mg PO HS 03/22/25 03/23/25 History Calcium Carbonate [Tums] 500 mg PO DAILY PRN 03/22/25 03/22/25 History Cetirizine HCl [Zyrtec] 10 mg PO DAILY PRN 03/22/25 03/22/25 History Cholecalciferol [Vitamin D3 (25 1 dose PO DAILY 03/22/25 03/22/25 History Mcg = 1000 Iu)] Famotidine [Pepcid] 40 mg PO HS 03/22/25 03/23/25 History Fluticasone Nasal [place] [Flonase 1 spray INTRANASAL DAILY PRN 03/22/25 03/23/25 History Nasal [place]] Furosemide [Lasix] 20 mg PO DAILY 03/22/25 03/23/25 History Losartan [Cozaar] 50 mg PO DAILY 03/22/25 03/23/25 History Magnesium 1 dose PO DAILY 03/22/25 03/22/25 History Metoprolol Tartrate [Lopressor] 50 mg PO BID 03/22/25 03/23/25 History Multivitamins, Thera [Multivitamin 1 tab PO DAILY 03/22/25 03/22/25 History (formulary)] Rivaroxaban [Xarelto] 20 mg PO DAILY 03/22/25 03/22/25 History Thiamine [Vitamin B-1] 1 dose PO DAILY 03/22/25 03/22/25 History Zinc Gluconate [Zinc] 1 dose PO DAILY 03/22/25 03/22/25 History sitaGLIPtin [Januvia] 25 mg PO DAILY 03/22/25 03/22/25 History Allergies Allergy/AdvReac Type Severity Reaction Status Date / Time levofloxacin [From Levaquin] Allergy Rash/Hives Verified 03/22/25 12:06 lisinopril Allergy Rash/Hives Verified 03/22/25 12:06 metformin AdvReac Diarrhea Verified 03/22/25 12:06 bandaid adhesive Allergy Rash skin Uncoded 03/22/25 14:37 irritation Physical Exam Vitals: Vital Signs Temp Pulse Pulse Resp BP Pulse Ox 03/24/25 12:02 56 L 16 145/80 99 03/24/25 04:00 97.8 F 59 L 17 148/62 99 03/24/25 02:00 58 L 03/24/25 00:00 98.0 F 55 L 17 115/59 100 03/23/25 20:00 97.9 F 60 17 152/66 100 03/23/25 15:35 60 16 151/74 100 Intake and Output 03/23/25 03/24/25 03/24/25 22:59 06:59 14:59 Intake Total 476 250 Balance 476 250 Intake: IV 10 Invasive Line 2 10 Oral 476 240 Other: Voiding Method Toilet Toilet Toilet Weight 100.4 kg Results 03/24/25 06:33 03/24/25 06:33 Cardiac Enzymes 03/23/25 03/24/25 Range/Units 13:47 06:33 AST 26 24 (14-36) U/L Coagulation 03/23/25 Range/Units 13:47 PT 10.7 (10.0-12.5) sec APTT 26.4 (22.0-30.0) sec Lipids 03/23/25 Range/Units 13:47 Triglycerides 212.00 H (0.00-149.00) mg/dL Cholesterol 128.00 (0.00-200.00) mg/dL HDL Cholesterol 53.90 (40.00-60.00) mg/dL Cholesterol/HDL Ratio 2.37 Ratio CBC 03/23/25 03/24/25 Range/Units 13:47 06:33 WBC 8.20 7.91 (4.50-10.00) 10*3/uL RBC 4.46 4.49 (4.10-5.20) 10*6/uL Hgb 12.5 12.4 (12.0-15.0) g/dL Hct 38.4 39.1 (37.2-46.3) % Plt Count 221 211 (140-440) 10*3/uL Comprehensive Metabolic Panel 03/23/25 03/24/25 Range/Units 13:47 06:33 Sodium 138 141 (137-145) mmol/L Potassium 4.6 4.7 (3.5-5.1) mmol/L Chloride 101 104 (98-107) mmol/L Carbon Dioxide 28 29 (22-30) mmol/L BUN 32 H 30 H (7-17) mg/dL Creatinine 1.60 H 1.44 H (0.52-1.04) mg/dL Glucose 136 H 101 H (74-99) mg/dL Calcium 9.5 9.3 (8.4-10.2) mg/dL AST 26 24 (14-36) U/L ALT 25 23 (4-34) U/L Alkaline Phosphatase 106 90 (38-126) U/L Total Protein 7.0 6.8 (6.3-8.2) g/dL Albumin 4.0 3.9 (3.5-5.0) g/dL Current Medications Generic Name Dose Route Start Last Admin Trade Name Freq PRN Reason Stop Dose Admin Alprazolam 0.25 mg 03/23/25 05:40 Alprazolam 0.25 Mg Tab PO 04/22/25 05:39 Q6HR PRN Mild Anxiety Alprazolam 0.5 mg 03/23/25 05:40 Alprazolam 0.5 Mg Tab PO 04/22/25 05:39 Q6HR PRN Moderate Anxiety Aspirin 325 mg 03/25/25 05:00 Aspirin 325 Mg Tab PO 03/25/25 05:01 ONCE ONE Aspirin 81 mg 03/25/25 09:00 Aspirin 325 Mg Tab PO DAILY LINUS Atorvastatin Calcium 40 mg 03/23/25 21:00 03/23/25 20:57 Atorvastatin 40 Mg Tab PO 04/22/25 20:59 40 mg HS LINUS Administration Atorvastatin Calcium 10 mg 03/25/25 05:00 Atorvastatin 10 Mg Tab PO 03/25/25 05:01 ONCE ONE Calcium Chloride 1,000 mg 03/25/25 05:00 Calcium Chloride 100 Mg/Ml 10 Ml Syringe IVP 03/25/25 05:01 ONCE ONE Chlorhexidine Gluconate 15 ml 03/25/25 05:00 Chlorhexidine Gluconate 15 Ml Cup MUCOUS MEM 03/25/25 05:01 ONCE ONE Dextrose/Water 25 ml 03/23/25 12:28 Dextrose 50% Syringe 50 Ml IVP PER PROTOCOL PRN Hypoglycemia Protocol Dextrose/Water 50 ml 03/23/25 12:28 Dextrose 50% Syringe 50 Ml IVP PER PROTOCOL PRN Hypoglycemia Protocol Fluticasone Propionate 1 spray 03/23/25 12:29 Fluticasone Nasal 50mcg/[place] 16gm Btl INTRANASAL DAILY PRN Allergy Symptoms Heparin Sodium (Porcine) 10,000 unit 03/25/25 05:00 Heparin Sodium 1,000 Un/Ml (10ml Vl) IV 03/25/25 05:01 ONCE ONE Heparin Sodium (Porcine) 30,000 unit 03/25/25 05:00 Heparin Sodium,Porcine 30 Ml 1,000 Unit/Ml Vial IV 03/25/25 05:01 ONCE ONE Heparin Sodium (Porcine) 30,000 unit 03/25/25 05:00 Heparin Sodium,Porcine 30 Ml 1,000 Unit/Ml Vial IV 03/25/25 05:01 ONCE ONE Heparin Sodium (Porcine) 30,000 unit 03/25/25 05:00 Heparin Sodium,Porcine 30 Ml 1,000 Unit/Ml Vial IV 03/25/25 05:01 ONCE ONE Heparin Sodium (Porcine) 5,000 501 mls @ 0 mls/hr 03/25/25 05:00 unit/ Sodium Chloride IV 03/25/25 05:01 ONCE ONE As Directed Protamine Sulfate 250 mg/ IV 25 mls @ 0 mls/hr 03/25/25 05:00 Solution IV 03/25/25 05:01 ONCE ONE As Directed Nitroglycerin/Dextrose 50 mg/ 250 mls @ 1.5 mls/hr 03/25/25 05:00 IV Solution IV 04/24/25 04:59 .Q24H LINUS 5 MCG/MIN Clevidipine 25 mg/ IV Solution 50 mls @ 2 mls/hr 03/25/25 05:00 IV 04/24/25 04:59 .Q24H LINUS Protocol 1 MG/HR Phenylephrine HCl 40 mg/ 254 mls @ 0 mls/hr 03/25/25 05:00 Sodium Chloride IV 03/25/25 05:01 .Q0M ONE Protocol Per Protocol Albumin Human 500 ml/ IV 500 mls @ 250 mls/hr 03/25/25 05:00 Solution IVPB 03/25/25 06:59 ONCE ONE Protocol Albumin Human 500 ml/ IV 500 mls @ 250 mls/hr 03/25/25 05:00 Solution IVPB 03/25/25 06:59 ONCE ONE Protocol Albumin Human 500 ml/ IV 500 mls @ 250 mls/hr 03/25/25 05:00 Solution IVPB 03/25/25 06:59 ONCE ONE Protocol Albumin Human 500 ml/ IV 500 mls @ 250 mls/hr 03/25/25 05:00 Solution IVPB 03/25/25 06:59 ONCE ONE Protocol Albumin Human 500 ml/ IV 500 mls @ 250 mls/hr 03/25/25 05:00 Solution IVPB 03/25/25 06:59 ONCE ONE Protocol Albumin Human 500 ml/ IV 500 mls @ 250 mls/hr 03/25/25 05:00 Solution IVPB 03/25/25 06:59 ONCE ONE Protocol Norepinephrine Bitartrate 8 mg 254 mls @ 0 mls/hr 03/25/25 05:00 / Sodium Chloride IV 04/24/25 04:59 .Q0M LINUS Protocol Titrate Propofol 1,000 mg/ IV Solution 100 mls @ 0 mls/hr 03/25/25 05:00 IV 04/24/25 04:59 .Q0M PRN Per Protocol Protocol Titrate Magnesium Sulfate 16.24 meq/ 4.06 mls @ 0 mls/hr 03/25/25 05:00 IV Solution IV 03/25/25 05:01 ONCE ONE Per Protocol Papaverine HCl 360 mg/ Sodium 102 mls @ 0 mls/hr 03/25/25 05:00 Chloride IV 03/25/25 05:01 ONCE ONE As Directed Tranexamic Acid 2,000 mg/ 100 mls @ 0 mls/hr 03/25/25 05:00 Sodium Chloride IV 03/25/25 05:01 .Q0M ONE Protocol Per Protocol Sodium Bicarbonate 20 ml/ 1,033.5 mls @ 0 mls/hr 03/25/25 08:00 Lidocaine HCl 270 mg/ Plegisol PERFUSION 04/24/25 07:59 Cardioplegic Solution .Q0M NR Protocol Per Protocol Diltiazem HCl 125 mg/ Dextrose 125 mls @ 5 mls/hr 03/25/25 05:00 /Water IV 04/24/25 04:59 .Q24H LINUS 5 MG/HR Cefazolin Sodium 2 gm/ Sodium 50 mls @ 100 mls/hr 03/25/25 05:00 Chloride IVPB 03/25/25 05:29 ONCE ONE Protocol Cefazolin Sodium 1,000 mg/ 1,000 mls @ 999 mls/hr 03/25/25 05:00 Sodium Chloride IRRIGATION 03/25/25 06:00 ONCE ONE Protocol Insulin Human Regular 100 unit 100 mls @ 0 mls/hr 03/25/25 05:00 / Sodium Chloride IV 04/24/25 04:59 .Q0M LINUS Protocol Titrate Albumin Human 50 ml/ IV 50 mls @ 100 mls/hr 03/25/25 05:00 Solution IVPB 03/25/25 05:29 ONCE ONE Protocol Albumin Human 50 ml/ IV 50 mls @ 100 mls/hr 03/25/25 05:00 Solution IVPB 03/25/25 05:29 ONCE ONE Protocol Cefazolin Sodium 2 gm/ Sodium 50 mls @ 100 mls/hr 03/25/25 05:00 Chloride IVPB 03/25/25 05:29 ONCE ONE Protocol Insulin Human Lispro 0 unit 03/23/25 12:30 03/24/25 08:41 Insulin Lispro (Humalog) 100 Unit/Ml 10 Ml Vl SQ Not Given ACHS LINUS Protocol Linagliptin 5 mg 03/23/25 09:00 03/24/25 08:44 Linagliptin 5 Mg Tablet PO 04/22/25 08:59 5 mg DAILY LINUS Administration Mannitol 12.5 gm 03/25/25 05:00 Mannitol 25% 12.5 Gm/50 Ml Vial IV 03/25/25 05:01 ONCE ONE Mannitol 12.5 gm 03/25/25 05:00 Mannitol 25% 12.5 Gm/50 Ml Vial IV 03/25/25 05:01 ONCE ONE Metoprolol Tartrate 50 mg 03/23/25 21:00 03/24/25 08:44 Metoprolol Tartrate 50 Mg Tab PO 04/22/25 20:59 50 mg BID LINUS Administration Metoprolol Tartrate 12.5 mg 03/25/25 05:00 Metoprolol Tartrate 12.5 Mg Tab PO 03/25/25 05:01 ONCE ONE Miscellaneous Information 1 each 03/23/25 08:14 Rx Info: Iv Contrast Was Given 1 Each Misc MISCELLANE 03/25/25 08:13 DAILY PRN Per Protocol Miscellaneous Information 1 each 03/23/25 15:31 Magnesium Replacement Protocol 1 Each Misc MISCELLANE DAILY PRN Per Protocol Protocol Multivitamins 1 each 03/24/25 09:00 03/24/25 08:44 Multivitamins, Thera 1 Each Tab PO 1 each DAILY LINUS Administration Mupirocin 1 applic 03/23/25 21:00 03/24/25 12:00 Mupirocin 2% Oint 22 Gm Tube NASAL 03/28/25 20:59 1 applic BID LINUS Administration Nitroglycerin 0.4 mg 03/23/25 05:40 Nitroglycerin Sl Tabs 0.4 Mg Tab SUBLINGUAL 04/22/25 05:39 Q5M PRN Chest Pain Nitroglycerin/Dextrose 1 mg 03/25/25 05:00 Nitroglycerin-D5w Pmx 25 Mg/250 Ml Btl IV 03/25/25 05:01 ONCE ONE Phenylephrine HCl 0 mg 03/25/25 05:00 Phenylephrine 10 Mg/Ml Vial IV 03/25/25 05:01 ONCE ONE Protamine Sulfate 250 mg 03/25/25 05:00 Protamine Sulfate 10 Mg/Ml 25 Ml Vial IV 03/25/25 05:01 ONCE ONE Sodium Bicarbonate 50 ml 03/25/25 05:00 Sodium Bicarb 8.4% 50 Ml Syr (1 Meq/Ml) IV 03/25/25 05:01 ONCE ONE Thiamine HCl 100 mg 03/24/25 09:00 03/24/25 12:00 Thiamine 100 Mg Tab PO 100 mg DAILY LINUS Administration Intake and Output 03/23/25 03/24/25 03/24/25 22:59 06:59 14:59 Intake Total 476 250 Balance 476 250 Intake: IV 10 Invasive Line 2 10 Oral 476 240 Other: Voiding Method Toilet Toilet Toilet Weight 100.4 kg 03/24/25 06:33 03/24/25 06:33
--- NOTE | 2025-03-24 14:31 | P.CNPUL ---
History of Present Illness Consult date: 03/24/25 Requesting physician: Rosalba Samano Reason for consult: chest pain Chief complaint: CAD, with anticipated CABG. History of present illness: Pulmonary consult dated March 24, 2025. 75-year-old female who was recently seen by cardiology, and, is apparently going to have CABG, on March 25, 2025. We were consulted, for input regarding her pulmonary status, her mild asthma, and what to anticipate, after surgery. The patient had a cardiac catheterization, on March 23. It showed calcified coronary arteries, significant disease in the distal left main, severe disease in the ostium of the right coronary artery, and proximal LAD, and moderately severe disease in the proximal left circumflex coronary artery. The patient does have a history of mild asthma. She takes an albuterol inhaler only as needed. She is a lifelong non-smoker. Does not really complain much of any lung issues or lung complaints. She denies any coughing, wheezing, chest tightness, or phlegm production. She does have a history of hypertension, hyperlipidemia, atrial fibrillation, diabetes mellitus, type II, recent abnormal stress test, and mild tricuspid valve regurgitation. In addition, she has moderate mitral valve regurgitation, and obesity, as well as GERD, and previous coronavirus infection. Current labs include a white count of 7.9, hemoglobin 12.4, hematocrit 39.1, and a platelet count of 211,000. Sodium 141, potassium 4.7, chlorides 104, CO2 29, anion gap 8, BUN 30, creatinine 1.44. Glucose is 101. The rest of the labs within normal. Cholesterol was 128. TSH was normal. Chest x-ray showed no acute cardiopulmonary disease. Chest CT showed no suspicious lung mass or nodule, and no acute cardiopulmonary disease. Review of Systems REVIEW OF SYSTEMS: CONSTITUTIONAL: [Negative.] NEUROLOGIC: [ Negative.] HEENT: [ Negative.] CARDIAC: Chest pain. PULMONARY: [Negative.] GI: [Negative.] : [Negative.] RHEUMATOLOGIC: [ Negative.] IMMUNOLOGIC: [ Negative.] ENDOCRINE: [Negative. ] DERMATOLOGIC: [Negative.] Past Medical History Past Medical History: Atrial Fibrillation, Diabetes Mellitus, Hyperlipidemia, Hypertension Additional Past Medical History / Comment(s): chest discomfort w/ activity, seasonal allergies, IBS-resolved since discontinued Prilosec. Draining boil -R breast. Hospitalized w/ new onset Afib December 2024. History of Any Multi-Drug Resistant Organisms: None Reported Past Surgical History: Cholecystectomy, Hysterectomy Additional Past Surgical History / Comment(s): Metal clip placed during g allbladder surgery. B/L cataract removal w/ lens implants. Past Anesthesia/Blood Transfusion Reactions: Previous Problems w/ Anesthesia, Postoperative Nausea & Vomiting (PONV) Additional Past Anesthesia/Blood Transfusion Reaction / Comment(s): Woke up nauseous after laparoscopic procedure prior to hysterectomy. No hx of blood transfusion. Smoking Status: Never smoker - Past Family History Mother Family Medical History: Myocardial Infarction ([place]) Additional Family Medical History / Comment(s): Maternal grandmother w/ heart disease. Father Additional Family Medical History / Comment(s): Father had pacemaker. Paternal uncle w/ hx of open heart surgery. Paternal uncle and grandfather had lung CA. Medications and Allergies Home Medications Medication Instructions Recorded Confirmed Type Atorvastatin [Lipitor] 40 mg PO HS 03/22/25 03/23/25 History Calcium Carbonate [Tums] 500 mg PO DAILY PRN 03/22/25 03/22/25 History Cetirizine HCl [Zyrtec] 10 mg PO DAILY PRN 03/22/25 03/22/25 History Cholecalciferol [Vitamin D3 (25 1 dose PO DAILY 03/22/25 03/22/25 History Mcg = 1000 Iu)] Famotidine [Pepcid] 40 mg PO HS 03/22/25 03/23/25 History Fluticasone Nasal [place] [Flonase 1 spray INTRANASAL DAILY PRN 03/22/25 03/23/25 History Nasal [place]] Furosemide [Lasix] 20 mg PO DAILY 03/22/25 03/23/25 History Losartan [Cozaar] 50 mg PO DAILY 03/22/25 03/23/25 History Magnesium 1 dose PO DAILY 03/22/25 03/22/25 History Metoprolol Tartrate [Lopressor] 50 mg PO BID 03/22/25 03/23/25 History Multivitamins, Thera [Multivitamin 1 tab PO DAILY 03/22/25 03/22/25 History (formulary)] Rivaroxaban [Xarelto] 20 mg PO DAILY 03/22/25 03/22/25 History Thiamine [Vitamin B-1] 1 dose PO DAILY 03/22/25 03/22/25 History Zinc Gluconate [Zinc] 1 dose PO DAILY 03/22/25 03/22/25 History sitaGLIPtin [Januvia] 25 mg PO DAILY 03/22/25 03/22/25 History Allergies Allergy/AdvReac Type Severity Reaction Status Date / Time levofloxacin [From Levaquin] Allergy Rash/Hives Verified 03/22/25 12:06 lisinopril Allergy Rash/Hives Verified 03/22/25 12:06 metformin AdvReac Diarrhea Verified 03/22/25 12:06 bandaid adhesive Allergy Rash skin Uncoded 03/22/25 14:37 irritation Physical Exam Osteopathic Statement: *. No significant issues noted on an osteopathic structural exam other than those noted in the History and Physical/Consult. Vitals: Vital Signs Temp Pulse Pulse Resp BP Pulse Ox 03/24/25 12:02 56 L 16 145/80 99 03/24/25 04:00 97.8 F 59 L 17 148/62 99 03/24/25 02:00 58 L 03/24/25 00:00 98.0 F 55 L 17 115/59 100 03/23/25 20:00 97.9 F 60 17 152/66 100 03/23/25 15:35 60 16 151/74 100 Intake and Output 03/23/25 03/24/25 03/24/25 22:59 06:59 14:59 Intake Total 476 250 Balance 476 250 Intake: IV 10 Invasive Line 2 10 Oral 476 240 Other: Voiding Method Toilet Toilet Toilet Weight 100.4 kg No acute distress, oriented 3. HEENT examination is grossly unremarkable. Mucous membranes are moist. No oral lesions. Neck supple. Full range of motion. No adenopathy thyromegaly or neck vein distention. Cardiovascular examination reveals regular rhythm rate. S1-S2 normal. No S3 or S4. No discernible murmur noted. Lungs reveal clear breath sounds. Breath sounds are equal bilaterally. No adventitious lung sounds including wheezes rhonchi or crackles. Abdomen soft bowel sounds are heard. No masses or tenderness. Extremities are intact. No cyanosis clubbing or edema. Skin is without rash or lesion. Neurologic examination is brief but nonfocal. Results - Laboratory Findings CBC and BMP: 03/24/25 06:33 03/24/25 06:33 PT/INR, D-dimer PT 10.7 sec (10.0-12.5) 03/23/25 13:47 INR 1.0 (<1.2) 03/23/25 13:47 Abnormal lab findings: Abnormal Labs 03/23/25 03/23/25 03/23/25 06:21 13:47 13:47 MCHC BUN 32 H Creatinine 1.60 H Glucose 136 H POC Glucose (mg/dL) 125 H Hemoglobin A1c 6.5 H Triglycerides 212.00 H VLDL Cholesterol, Calc 42.40 H Crossmatch 03/24/25 03/24/25 03/24/25 06:33 06:33 06:33 MCHC 31.7 L BUN 30 H Creatinine 1.44 H Glucose 101 H POC Glucose (mg/dL) Hemoglobin A1c Triglycerides VLDL Cholesterol, Calc Crossmatch See Detail - Diagnostic Findings Chest x-ray: image reviewed CT scan - chest: image reviewed Assessment and Plan Assessment: Multivessel coronary artery disease, with anticipated CABG, March 25, 2025. History of hypertension. History of hyperlipidemia. History of paroxysmal atrial fibrillation. History of type 2 diabetes mellitus. History of valvular heart disease, with mild tricuspid valve regurgitation, and moderate mitral valve regurgitation. Obesity, with a BMI of 38.1 kg/m. Gastroesophageal reflux disease. Mild intermittent asthma. Lifelong non-smoker. Plan: Plan dated March 24, 2025. The patient is seen today in room 369. We explained to the patient, that we have 2 major roles, after open heart surgery. The first role, is to get the patient extubated from mechanical ventilation. That typically occurs 4 to 6 hours after the patient leaves the operating room. I did explain that sometimes it is less, and sometimes more. Finally, after surgery, and after the patient is extubated, we see the patient on a daily basis, to ensure that the patient does not develop any pneumonia, pleural effusion, atelectasis, collapse, etc. This includes deep breathing, coughing, clearing of secretions, and hourly use of the incentive spirometer. We will continue to follow make recommendations along the way. Prognosis is thought to be good. The patient is a lifelong non- smoker. She does have history of very mild intermittent asthma. Dictation was produced using [employer] software. Please excuse any grammatical, word or spelling errors. Time with Patient: Greater than 30
[2025-03-24 16:20] LABS: Glucose,Whole Blood 97 mg/dL (70-110)
[2025-03-24 19:55] LABS: Glucose,Whole Blood 102 mg/dL (70-110)
[2025-03-25] MEDS ORDERED: NOREPINEPHRINE 8 MG in SODIUM CHLORIDE 0.9% 250 ML IV SCH (05:00)
[2025-03-25] MEDS ORDERED: CALCIUM CHLORIDE 100 MG/ML 10 ML SYRINGE IVP ONE ×2 (05:00)
[2025-03-25] MEDS ORDERED: ALBUMIN HUMAN 25% 50 ML in EMPTY BAG 1 BAG IVPB ONE (05:00)
[2025-03-25] MEDS ORDERED: INSULIN REGULAR 100 UNIT in SODIUM CHLORIDE 0.9% 100 ML IV SCH (05:00)
--- NOTE | 2025-03-25 05:08 | P.PN ---
Subjective Progress Note Date: 03/24/25 This is a very pleasant 75-year-old female who was brought in by her occupational medicine specialist Dr. Cavanaugh and underwent cardiac catheterization this morning as she has been having increasing weakness with shortness of breath and intermittent nausea with intermittent chest pain. Cardiac catheterization revealed calcified coronary arteries, significant disease in the distal left main, severe disease in the ostium of the RCA and proximal LAD, and moderate severe disease in the proximal left circumflex. Cardiology consulted CT surgery for evaluation of possible coronary artery bypass grafting. Patient is being admitted to medicine with CT surgery on consult as well as cardiology. Patient follows with Dr. Deluca in the outpatient setting with a past medical history of atrial fibrillation, asthma, diabetes mellitus, GERD, hyperlipidemia, hypertension, IBS, obesity. Patient rarely drinks, denies any smoking and denies illicit drug use. Patient was recently hospitalized over at [facility] in December of this year and was noted to have new onset atrial fibrillation. Patient reports since then she has been having some increasing shortness of breath and finding it difficult to perform activities that has been progressively getting worse over the last few weeks. CT surgery following and patient is being initiated on CABG workup protocol. Will add Accu-Cheks AC and at bedtime along with insulin regimen for now and we will follow-up on repeat labs in the a.m. 03/24/2025 Patient is seen in follow-up today with no acute overnight issues noted. Patient currently undergoing further workup with CT surgery and tentatively scheduled for CABG with Dr. Ellis patient is afebrile no reports of chest pain or shortness of breath. Patient has been tolerating diet and will be n.p.o. at midnight. Continue monitoring blood sugars closely and will continue current insulin regimen. The bedside and encouraged patient to continue using at least 10 times every hour while awake. Review of systems: Constitutional: No reports of fatigue, fever, or chills Cardiovascular: No reports of chest pain or palpitations Respiratory: No reports of shortness of breath or cough GI: No reports of nausea, vomiting, or diarrhea : No reports of dysuria or retention Neurovascular: No reports of weakness or numbness All medications have been reviewed PHYSICAL EXAMINATION: GENERAL: The patient is alert and oriented x3, not in any acute distress. Well developed, elderly appearing, obese HEENT: Pupils are round and equally reacting to light. EOMI. No scleral icterus. No conjunctival pallor. Normocephalic, atraumatic. No pharyngeal erythema. No thyromegaly. CARDIOVASCULAR: S1 and S2 muffled, irregular PULMONARY: Diminished breath sounds bilaterally otherwise chest is clear to auscultation, no wheezing or crackles. ABDOMEN: Soft, obese, nontender, nondistended, normoactive bowel sounds. No palpable organomegaly. MUSCULOSKELETAL: No joint swelling or deformity. EXTREMITIES: No cyanosis, clubbing, or pedal edema. NEUROLOGICAL: Gross neurological examination did not reveal any focal deficits. SKIN: No rashes. Assessment: Status postcardiac catheterization 03/23/2025 revealing triple-vessel disease with significant disease of the distal left main, ostium of the RCA and proximal LAD, as well as proximal left circumflex, currently undergoing CABG workup with tentative surgery on , 03/25/[address] surgery History of atrial fibrillation, new onset in December 2024 History of asthma, not in exacerbation Diabetes mellitus, type II GERD Hyperlipidemia Hypertension Obesity with a BMI of 38.1 History of previous IBS, resolved GI prophylaxis DVT prophylaxis Full code Plan: Patient underwent cardiac catheterization 03/23/[address] Cavanaugh her primary occupational medicine specialist and was noted to have triple-vessel disease is currently being evaluated by CT surgery undergoing possible CABG workup and tentatively scheduled for surgical intervention on , 03/25/2025. Patient will remain hospitalized and will continue ongoing CT surgery workup pulmonary chip washer consulted as well this patient will be in the ICU Continue Accu-Cheks AC and at bedtime and will continue sliding scale and adjust insulins accordingly, hemoglobin A1c is pending. Patient will be n.p.o. at midnight recommend monitoring blood sugars closely for any signs of hypoglycemia Follow-up on repeat labs and replace electrolytes per protocol Home meds reviewed and resumed as appropriate The impression and plan of care has been dictated by Billie Padilla, Nurse Practitioner as directed. Dr. Jazmyne MD I have performed a history and examination and MDM of this patient, discussed the same with the dictator, and agree with the dictator's assessment and plan as written ,documented as a scribe. Based on total visit time, I have performed more than 50% of the visit. Objective - Vital Signs Vital signs: Vital Signs Temp 97.8 F 03/25/25 00:00 Pulse 53 L 03/25/25 02:00 Resp 16 03/25/25 00:00 BP 131/70 03/25/25 00:00 Pulse Ox 97 03/25/25 00:00 FiO2 Intake & Output 03/24/25 03/24/25 03/25/25 06:59 18:59 06:59 Intake Total 240 500 280 Balance 240 500 280 Weight 100.4 kg Intake: IV 20 40 Invasive Line 1 20 Invasive Line 2 20 20 Oral 240 480 240 Other: Voiding Method Toilet Toilet Toilet - Labs CBC & Chem 7: 03/24/25 06:33 03/24/25 06:33 Labs: Abnormal Lab Results - Last 24 Hours (Table) 03/24/25 03/24/25 03/24/25 Range/Units 06:33 06:33 06:33 MCHC 31.7 L (32.0-37.0) g/dL BUN 30 H (7-17) mg/dL Creatinine 1.44 H (0.52-1.04) mg/dL Glucose 101 H (74-99) mg/dL Crossmatch See Detail Microbiology - Last 24 Hours (Table) 03/23/25 11:27 Nasal Screen MRSA/MSSA - Final Nasal Swab
[2025-03-25] MEDS: ASPIRIN 325 MG TAB PO ONE (05:45)
[2025-03-25] MEDS: ATORVASTATIN 10 MG TAB PO ONE (05:45)
[2025-03-25] MEDS: METOPROLOL TARTRATE 12.5 MG TAB PO ONE (05:46)
[2025-03-25 05:47] LABS: Glucose,Whole Blood 145 mg/dL (70-110)
[2025-03-25] MEDS: IV FLUID CONTINUATION 1,000 ML IV ONE (06:22)
[2025-03-25] MEDS: LACTATED RINGERS 1,000 ML IV SCH (06:35)
[2025-03-25] MEDS ORDERED: ATROPINE SULFATE 0.1 MG/ML 10ML SYRINGE ONE (07:49)
[2025-03-25] MEDS ORDERED: HEPARIN SODIUM,PORCINE 5,000 UNIT/ML 1 ML VIAL ONE (07:49)
[2025-03-25] MEDS ORDERED: TRANEXAMIC 1,000 MG/100ML-NACL PREMIX BAG ONE (07:49)
[2025-03-25] MEDS ORDERED: fentaNYL (PF) 50 MCG/ML 50 ML VIAL ONE (07:49)
[2025-03-25] MEDS ORDERED: VASOPRESSIN 20 UNIT/ML 1 ML VIAL ONE (07:49)
[2025-03-25] MEDS ORDERED: CALCIUM CHLORIDE 1 GM/10 ML VIAL ONE (07:49)
[2025-03-25] MEDS ORDERED: HEPARIN SODIUM,PORCINE 10,000 UNIT/ML 1 ML VIAL ONE (07:49)
[2025-03-25] MEDS ORDERED: VECURONIUM 10 MG VIAL IV ONE (07:49)
[2025-03-25] MEDS ORDERED: ALBUMIN HUMAN 5% (25gm) 500 ML VIAL IVPB ONE (07:49)
[2025-03-25] MEDS ORDERED: PROTAMINE SULFATE 10 MG/ML 25 ML VIAL IV ONE (07:49)
[2025-03-25] MEDS ORDERED: WATER FOR INJECTION, STERILE 10 ML VIAL IV ONE (07:49)
[2025-03-25] MEDS ORDERED: SODIUM BICARB 8.4% 50 ML SYR (1 MEQ/ML) ONE (07:49)
[2025-03-25] MEDS ORDERED: PROPOFOL 10 MG/ML 20 ML VIAL IV ONE (07:49)
[2025-03-25] MEDS ORDERED: PHENYLEPHRINE-0.9% NACL SYG 1,000 MCG/10 ML SYRINGE ONE (07:49)
[2025-03-25] MEDS ORDERED: MIDAZOLAM HCL 10 MG/10 ML VIAL ONE (07:49)
[2025-03-25] MEDS ORDERED: ePHEDrine 50 MG/ML 1 ML VIAL ONE (07:49)
[2025-03-25] MEDS ORDERED: LIDOCAINE 2% SYG (PF) 100 MG/5 ML ONE (07:49)
[2025-03-25] MEDS ORDERED: EPINEPHrine 10 ML SYRINGE (0.1 MG/ML) ONE (07:49)
[2025-03-25] MEDS ORDERED: CARDIOPLEGIC SOLN (K+ 16 MEQ/L 1,000 ML with SOD BICARB SYR 8.4% (1 MEQ/ML) 20 ML, LIDO... PERFUSION NR (08:00)
[2025-03-25 08:31] LABS: ABG Glucose Whole Blood 143 mg/dL (75-99); ABG HCO3 24 mmol/L (21-25); ABG Hematocrit 32 % (34.0-46.0); ABG Ionized Calcium 5.0 mg/dL (4.5-5.3); ABG Lactic Acid Whole Blood 1.3 mmol/L (0.5-1.6); ABG PCO2 36 mmHg (35-45); ABG PH 7.44 (7.35-7.45); ABG PO2 322 mmHg (83-108); ABG Potassium Whole Blood 4.4 mmol/L (3.4-4.5); ABG Sodium Whole Blood 139 mmol/L (135-146); Allen Test Performed? Yes
[2025-03-25] MEDS: ceFAZolin 1,000 MG in SODIUM CHLORIDE 0.9% 1,000 ML IRRIGATION ONE (09:19)
[2025-03-25] MEDS: SODIUM CHLORIDE 0.9% 500 ML 500 ML with HEPARIN SODIUM,PORCINE (1 ML) 5,000 UNIT IV ONE (09:19)
[2025-03-25] MEDS: PAPAVERINE 360 MG in SODIUM CHLORIDE 0.9% 90 ML IV ONE (09:19)
[2025-03-25 10:11] LABS: ABG Glucose Whole Blood 153 mg/dL (75-99); ABG HCO3 23 mmol/L (21-25); ABG Hematocrit 27 % (34.0-46.0); ABG Ionized Calcium 4.6 mg/dL (4.5-5.3); ABG Lactic Acid Whole Blood 0.9 mmol/L (0.5-1.6); ABG PCO2 36 mmHg (35-45); ABG PH 7.41 (7.35-7.45); ABG PO2 267 mmHg (83-108); ABG Potassium Whole Blood 4.2 mmol/L (3.4-4.5); ABG Sodium Whole Blood 139 mmol/L (135-146); Allen Test Performed? Yes
[2025-03-25 10:32] LABS: ABG HCO3 22 mmol/L (21-25); ABG Hematocrit 28 % (34.0-46.0); ABG PCO2 41 mmHg (35-45); ABG PH 7.35 (7.35-7.45); ABG TCO2 21 mmol/L (19-24); Allen Test Performed? Yes
[2025-03-25 10:46] LABS: ABG Glucose Whole Blood 207 mg/dL (75-99); ABG HCO3 20 mmol/L (21-25); ABG Ionized Calcium 4.1 mg/dL (4.5-5.3); ABG PCO2 30 mmHg (35-45); ABG PH 7.43 (7.35-7.45); ABG Potassium Whole Blood 3.7 mmol/L (3.4-4.5); ABG Sodium Whole Blood 138 mmol/L (135-146); Allen Test Performed? Yes
[2025-03-25 11:09] LABS: ABG Glucose Whole Blood 199 mg/dL (75-99); ABG Ionized Calcium 4.1 mg/dL (4.5-5.3); ABG Potassium Whole Blood 3.9 mmol/L (3.4-4.5); ABG Sodium Whole Blood 139 mmol/L (135-146)
[2025-03-25] MEDS ORDERED: AMIODARONE 360 MG in DEXTROSE 5% IN WATER 200 ML IV ONE (11:52)
--- NOTE | 2025-03-25 11:59 | P.PN ---
Subjective Progress Note Date: 03/25/25 This is a very pleasant 75-year-old female who was brought in by her cathode ray tube salvage processor Dr. Cavanaugh and underwent cardiac catheterization this morning as she has been having increasing weakness with shortness of breath and intermittent nausea with intermittent chest pain. Cardiac catheterization revealed calcified coronary arteries, significant disease in the distal left main, severe disease in the ostium of the RCA and proximal LAD, and moderate severe disease in the proximal left circumflex. Cardiology consulted CT surgery for evaluation of possible coronary artery bypass grafting. Patient is being admitted to medicine with CT surgery on consult as well as cardiology. Patient follows with Dr. Deluca in the outpatient setting with a past medical history of atrial fibrillation, asthma, diabetes mellitus, GERD, hyperlipidemia, hypertension, IBS, obesity. Patient rarely drinks, denies any smoking and denies illicit drug use. Patient was recently hospitalized over at [facility] in December of this year and was noted to have new onset atrial fibrillation. Patient reports since then she has been having some increasing shortness of breath and finding it difficult to perform activities that has been progressively getting worse over the last few weeks. CT surgery following and patient is being initiated on CABG workup protocol. Will add Accu-Cheks AC and at bedtime along with insulin regimen for now and we will follow-up on repeat labs in the a.m. 03/24/2025 Patient is seen in follow-up today with no acute overnight issues noted. Patient currently undergoing further workup with CT surgery and tentatively scheduled for CABG with Dr. Ellis patient is afebrile no reports of chest pain or shortness of breath. Patient has been tolerating diet and will be n.p.o. at midnight. Continue monitoring blood sugars closely and will continue current insulin regimen. The bedside and encouraged patient to continue using at least 10 times every hour while awake. 03/25/2025 Patient is evaluated in follow-up earlier this morning and is in the OR scheduled to undergo CABG and will await official CT surgery report. Review of systems: Constitutional: No reports of fatigue, fever, or chills Cardiovascular: No reports of chest pain or palpitations Respiratory: No reports of shortness of breath or cough GI: No reports of nausea, vomiting, or diarrhea : No reports of dysuria or retention Neurovascular: No reports of weakness or numbness All medications have been reviewed PHYSICAL EXAMINATION: GENERAL: The patient is alert and oriented x3, not in any acute distress. Well developed, elderly appearing, obese HEENT: Pupils are round and equally reacting to light. EOMI. No scleral icterus. No conjunctival pallor. Normocephalic, atraumatic. No pharyngeal erythema. No thyromegaly. CARDIOVASCULAR: S1 and S2 muffled, irregular PULMONARY: Diminished breath sounds bilaterally otherwise chest is clear to auscultation, no wheezing or crackles. ABDOMEN: Soft, obese, nontender, nondistended, normoactive bowel sounds. No palpable organomegaly. MUSCULOSKELETAL: No joint swelling or deformity. EXTREMITIES: No cyanosis, clubbing, or pedal edema. NEUROLOGICAL: Gross neurological examination did not reveal any focal deficits. SKIN: No rashes. Assessment: Status postcardiac catheterization 03/23/2025 revealing triple-vessel disease with significant disease of the distal left main, ostium of the RCA and proximal LAD, as well as proximal left circumflex, currently undergoing CABG workup with tentative surgery on , 03/25/[address] surgery History of atrial fibrillation, new onset in December 2024 History of asthma, not in exacerbation Diabetes mellitus, type II GERD Hyperlipidemia Hypertension Obesity with a BMI of 38.1 History of previous IBS, resolved GI prophylaxis DVT prophylaxis Full code Plan: Patient underwent cardiac catheterization 03/23/[address] Cavanaugh her primary cathode ray tube salvage processor and was noted to have triple-vessel disease is currently being evaluated by CT surgery undergoing CABG today 03/25/2025. Continue Accu-Cheks AC and at bedtime and will continue sliding scale and adjust insulins accordingly, hemoglobin A1c is pending. Patient is currently n.p.o. at midnight recommend monitoring blood sugars closely for any signs of hypoglycemia. Patient will likely be started on insulin drip postsurgery and will monitor closely Follow-up on repeat labs and replace electrolytes per protocol Home meds reviewed and resumed as appropriate The impression and plan of care has been dictated by Billie Padilla, Nurse Practitioner as directed. Dr. Jazmyne MD I have performed a history and examination and MDM of this patient, discussed the same with the dictator, and agree with the dictator's assessment and plan as written ,documented as a scribe. Based on total visit time, I have performed more than 50% of the visit. Objective - Vital Signs Vital signs: Vital Signs Temp 97.8 F 07/10/25 00:00 Pulse 53 L 03/25/25 02:00 Resp 16 03/25/25 00:00 BP 131/70 03/25/25 00:00 Pulse Ox 97 03/25/25 00:00 FiO2 Intake & Output 03/24/25 03/24/25 03/25/25 06:59 18:59 06:59 Intake Total 240 500 280 Balance 240 500 280 Weight 100.4 kg Intake: IV 20 40 Invasive Line 1 20 Invasive Line 2 20 20 Oral 240 480 240 Other: Voiding Method Toilet Toilet Toilet - Labs CBC & Chem 7: 03/24/25 06:33 03/24/25 06:33 Labs: Abnormal Lab Results - Last 24 Hours (Table) 03/24/25 03/24/25 03/24/25 Range/Units 06:33 06:33 06:33 MCHC 31.7 L (32.0-37.0) g/dL BUN 30 H (7-17) mg/dL Creatinine 1.44 H (0.52-1.04) mg/dL Glucose 101 H (74-99) mg/dL Crossmatch See Detail Microbiology - Last 24 Hours (Table) 03/23/25 11:27 Nasal Screen MRSA/MSSA - Final Nasal Swab
[2025-03-25] MEDS ORDERED: AMIODARONE 450 MG in DEXTROSE 5% IN WATER 250 ML IV SCH ×2 (12:00→18:10)
[2025-03-25 12:21] LABS: ABG Glucose Whole Blood 176 mg/dL (75-99); ABG HCO3 23 mmol/L (21-25); ABG Ionized Calcium 4.7 mg/dL (4.5-5.3); ABG PCO2 40 mmHg (35-45); ABG PH 7.37 (7.35-7.45); ABG Potassium Whole Blood 4.0 mmol/L (3.4-4.5); ABG Sodium Whole Blood 139 mmol/L (135-146); Allen Test Performed? Yes
[2025-03-25 12:48] LABS: ABG Glucose Whole Blood 160 mg/dL (75-99); ABG HCO3 24 mmol/L (21-25); ABG Hematocrit 27 % (34.0-46.0); ABG Ionized Calcium 5.4 mg/dL (4.5-5.3); ABG PCO2 42 mmHg (35-45); ABG PH 7.36 (7.35-7.45); ABG PO2 124 mmHg (83-108); ABG Potassium Whole Blood 4.3 mmol/L (3.4-4.5); ABG Sodium Whole Blood 140 mmol/L (135-146); ABG TCO2 23 mmol/L (19-24); Allen Test Performed? Yes
[2025-03-25 12:59] LABS: ABG Hematocrit 21 % (34.0-46.0); ABG Lactic Acid Whole Blood 3.0 mmol/L (0.5-1.6); ABG PO2 >420 mmHg (83-108)
[2025-03-25 13:00] LABS: ABG Lactic Acid Whole Blood 3.4 mmol/L (0.5-1.6); ABG PO2 >420 mmHg (83-108)
[2025-03-25 13:01] LABS: ABG Hematocrit 21 % (34.0-46.0); ABG Lactic Acid Whole Blood 2.6 mmol/L (0.5-1.6); ABG PO2 >420 mmHg (83-108)
[2025-03-25 13:02] LABS: ABG Lactic Acid Whole Blood 3.3 mmol/L (0.5-1.6)
--- NOTE | 2025-03-25 13:05 | P.PN ---
Subjective Progress Note Date: 03/25/25 HISTORY OF PRESENTING ILLNESS: 77-year-old follows up with Dr. Cavanaugh. History of hypertension dyslipidemia paroxysmal atrial fibrillation anticoagulation with Xarelto. Type 2 diabetes. As an outpatient because of symptoms of palpitations and nonspecific symptoms of decreased exercise capacity increased fatigue shortness of breath she had a stress test done which was abnormal showing large reversible perfusion defect in inferior and inferoapical segments.. For this she underwent cardiac catheteriz ation which showed 50 to 60% distal left main, 95% LAD after first septal takeoff, second annular branch had 50 to 60% ostial stenosis, 70% stenosis in proximal LCx, 99% stenosis in ostium of RCA. Due to multivessel disease, CT surgery team was requested to evaluate the patient for possible CABG . At the time of evaluation she is comfortable denies any active chest pain chest pressure shortness of breath. Right radial site appears intact with no signs of hematoma or bleeding, intact radial pulse. Labs and vitals were essentially within acceptable range ..................................... ................................................................................ ......................... [facility] Vitals: 145/80, heart rate 59 [facility] Labs: Hb 12.5, BUN 32, creatinine 1.6, repeat creatinine 1.4, A1c of 6.5, LDL 31, HDL 53, TG G212, TSH 2.6 ....................................... ................................................................................ ....................... Prior cardiac testing: Echo EF 55%, mild concentric LVH, aortic sclerosis, mild to moderate mitral regurgitation, cardiac catheterization showed 50 to 60% distal left main, 95% LAD after first s eptal takeoff, second annular branch had 50 to 60% ostial stenosis, 70% stenosis in proximal LCx, 99% stenosis in ostium of RCA ........................................................................ ...................................................................... Progress note 03/25/2025 Seen and examined at bedside. She will go for open heart surgery today. Hemodynamically stable. ....... ................................................................................ ....................................................... PHYSICAL EXAMINATION: Neck: Brisk carotid upstroke, no jugular venous distention. Lungs: Clear to auscultation. Heart: Regular rate and rhythm, S1-S2, , no murmur or rub. Abdomen: Soft nontender, positive bowel sounds. Extremities: No edema, intact distal pulses. Neuro: Alert, oritented, no focal deficits. Detailed neuro exam was not performed. ................ ................................................................................ .............................................. ASSESSMENT: # Multivessel CAD as described above # Paroxysmal atrial fibrillation, currently sinus rhythm # Type 2 diabetes # Essential hypertension, dyslipidemia # Obesity PLAN: I recommend CABG, pulmonary vein isolation with Arshad-Maze, left atrial appendage ligation Aspirin, Lipitor, beta-zhane Monitor blood pressure heart rate Supportive care We will continue to follow patient post CABG Objective - Vital Signs Vital signs: Vital Signs Temp 97.8 F 03/25/25 06:07 Pulse 59 L 03/25/25 06:07 Resp 16 03/25/25 06:07 BP 137/60 03/25/25 06:07 Pulse Ox 98 03/25/25 06:07 FiO2 Intake & Output 03/24/25 03/25/25 03/25/25 18:59 06:59 18:59 Intake Total 500 1100 590 Balance 500 1100 590 Weight 99.8 kg Intake: IV 20 140 3 Invasive Line 1 20 Invasive Line 2 20 20 Oral 480 960 Blood Product 587 Rc Pheresis As-3 Unit 311 [id number] Rc Pheresis As-3 Unit 276 [id number] Other: Voiding Method Toilet Toilet # Voids 2 - Labs CBC & Chem 7: 03/24/25 06:33 03/24/25 06:33 Labs: Abnormal Lab Results - Last 24 Hours (Table) 03/24/25 03/25/25 03/25/25 Range/Units 06:33 05:45 08:43 ABG pCO2 (35-45) mmHg ABG pO2 322 H (83-108) mmHg ABG HCO3 (21-25) mmol/L ABG O2 Saturation >99.4 H (94-97) % ABG Hematocrit 32 L (34.0-46.0) % ABG Ionized Calcium (4.5-5.3) mg/dL ABG Glucose 143 H (75-99) mg/dL ABG Lactic Acid (0.5-1.6) mmol/L Hemoglobin 10.6 L (11.4-16.0) gm/dL POC Glucose (mg/dL) 145 H (70-110) mg/dL Arterial Blood Glucose 143 H (75-99) mg/dL Crossmatch See Detail 03/25/25 03/25/25 03/25/25 Range/Units 10:10 10:45 11:15 ABG pCO2 30 L (35-45) mmHg ABG pO2 267 H >420 H >420 H (83-108) mmHg ABG HCO3 20 L (21-25) mmol/L ABG O2 Saturation >99.4 H 98.7 H >99.4 H (94-97) % ABG Hematocrit 27 L 28 L 21 L (34.0-46.0) % ABG Ionized Calcium 4.1 L 4.1 L (4.5-5.3) mg/dL ABG Glucose 153 H 199 H 207 H (75-99) mg/dL ABG Lactic Acid 3.4 H* 3.0 H* (0.5-1.6) mmol/L Hemoglobin 8.7 L 9.2 L 6.9 L* (11.4-16.0) gm/dL POC Glucose (mg/dL) (70-110) mg/dL Arterial Blood Glucose 153 H 199 H 207 H (75-99) mg/dL Crossmatch 03/25/25 03/25/25 Range/Units 11:45 12:45 ABG pCO2 (35-45) mmHg ABG pO2 >420 H 124 H (83-108) mmHg ABG HCO3 (21-25) mmol/L ABG O2 Saturation >99.4 H 98.4 H (94-97) % ABG Hematocrit 21 L 27 L (34.0-46.0) % ABG Ionized Calcium 5.4 H (4.5-5.3) mg/dL ABG Glucose 176 H 160 H (75-99) mg/dL ABG Lactic Acid 2.6 H* 3.3 H* (0.5-1.6) mmol/L Hemoglobin 6.7 L* 8.9 L (11.4-16.0) gm/dL POC Glucose (mg/dL) (70-110) mg/dL Arterial Blood Glucose 176 H 160 H (75-99) mg/dL Crossmatch Microbiology - Last 24 Hours (Table) 03/23/25 11:27 Nasal Screen MRSA/MSSA - Final Nasal Swab
[2025-03-25] MEDS ORDERED: DEXMEDETOMIDINE/0.9% NACL(PMX) 400 MCG in EMPTY BAG 1 BAG IV SCH (13:46)
[2025-03-25] MEDS ORDERED: LORATADINE 10 MG TAB PO PRN (13:46)
[2025-03-25] MEDS ORDERED: CALCIUM GLUCONATE IN NACL 2 GM in SALINE 1 100ML.BAG IVPB PRN (13:46)
[2025-03-25] MEDS ORDERED: DEXTROSE 5% IN WATER 100 ML with AMIODARONE 150 MG IV PRN (13:46)
[2025-03-25] MEDS ORDERED: CALCIUM CARBONATE 500 MG CHEWABLE PO PRN (13:46)
[2025-03-25] MEDS ORDERED: DEXTROSE 50% SYRINGE 50 ML IVP PRN (13:46)
[2025-03-25] MEDS ORDERED: IPRATROPIUM-ALBUTEROL 3 ML NEB INHALATION PRN (13:46)
[2025-03-25] MEDS ORDERED: Magnesium Replacement Protocol 1 EACH MISC MISCELLANE PRN (13:46)
[2025-03-25] MEDS ORDERED: Potassium Replacement Protocol 1 EACH MISC MISCELLANE PRN (13:46)
--- NOTE | 2025-03-25 13:52 | P.OP ---
Date of Procedure: 03/25/25 Preoperative Diagnosis: Coronary artery disease, stable angina, paroxysmal atrial fibrillation Postoperative Diagnosis: Same Procedure(s) Performed: Pump assisted beating heart CABG x 4 with MONTEMAYOR to LAD, saphenous vein graft to second diagonal, obtuse marginal, PDA, modified Arshad-Maze procedure with bilateral pulmonary vein ablation and occlusion of the left atrial appendage with 35 mm AtriCure clip. Implants: 35 mm AtriCure clip Anesthesia: ED Surgeon: James Ellis [employer]draulic Rubbish Compactor Mechanic #1: Nakul Hermosillo Hydraulic Rubbish Compactor Mechanic #2: Rios Peralta Estimated Blood Loss (ml): 300 IV fluids (ml): 2,500 Urine output (ml): 500 Pathology: none sent Condition: stable Disposition: ICU Indications for Procedure: 75-year-old female with 6-month history of worsening angina pectoris. She had a positive stress test in January. She was briefly admitted with atrial fibrillation and rapid ventricular response which was a new diagnosis. Echocardiography demonstrated normal ventricular function with "mild to moderate" mitral regurgitation. Cardiac catheterization was performed electively 2 days prior to surgery and demonstrated left main and triple-vessel disease. Was decided to keep the patient inpatient and proceed with CABG on this admission. Concomitant pulmonary vein ablation and clipping of the left atrial appendage was planned. Operative Findings: Left ventricular function was good. Mitral regurgitation was minimal under general anesthesia conditions. Coronary targets were reasonable. The radial was diminutive. Saphenous vein was good in the thigh and upper calf but small by the ankle. There was no evidence of thrombus in the left atrial appendage which was narrow but very long. On completion of the procedure, the patient from cardiopulmonary bypass with no difficulty. Cardiac index was excellent and ventricular function appeared excellent. Mitral regurgitation was nonexistent. Left atrial appendage was fully occluded. Description of Procedure: Patient was brought to the operating room and placed supine on the operating table. General anesthesia was induced. AKUA probe was placed and AKUA was performed. The anterior torso and bilateral lower extremities were sterilely prepped and draped. Greater saphenous vein was harvested from ankle to groin on the left lower extremity. Simultaneous sternotomy was performed. The left hemisternum was retracted upwards. The left internal mammary artery was harvested on a vascularized pedicle, left intact on its origin from the subclav ana and divided distally. It was an excellent conduit. The left pleural space was drained with a 32 Malaysian chest tube. Standard sternal retractor was placed. The pericardium was opened in the midline. The heart was exposed with pericardial sutures. The patient was systemically heparinized with a target ACT of 300. Dissection was begun around the right sided pulmonary veins. The patient developed atrial fibrillation. She was cardioverted out. She then became bradycardic. She became hypotensive. Open cardiac massage was begun and the patient was very briefly resuscitated. It was decided to perform pump assist for the procedure. Patient was further heparinized to an ACT greater than 450 and cannulated for cardiopulmonary bypass with a 7 mm soft flow cannula in the distal ascending aorta and a two-stage venous cannula through the right atrium into the inferior vena cava. She was placed on cardiopulmonary bypass and stabilized. We performed the right sided pulmonary vein ablation with 3 parallel lines on the left atrium at the insertion of the right sided pulmonary veins using the AtriCure clamp. Next we divided the ligament of Carl with electrocautery and encircled the left-sided pulmonary veins. We then performed 3 parallel lines on the left atrium at the insertion of the left-sided pulmonary veins using the AtriCure clamp. 35 mm AtriCure clip was placed at the base of the left atrial appendage. Saphenous vein was now carefully evaluated. There was adequate saphenous vein to graft to diagonal and PDA but the remaining piece of vein would be short for the OM to reach the ascending aorta. It was decided to take the proximal for the OM off the diagonal graft rather than take another piece of vein. We get began with the diagonal graft. The second diagonal was opened proximally. It was 1.5 mm good vessel. Blood flow was controlled with a 1.5 mm flow-through. End-to-side anastomosis between the saphenous vein and the second diagonal branch was performed with running 7-0 Prolene suture. On completion of the anastomosis, flow through was removed effectively probing the proximal and distal portion of the anastomosis. Suture was tied with good resultant hemostasis. Backflow was controlled with a bulldog clamp and the vein was cut to appropriate length to reach the ascending aorta. Next the obtuse marginal was exposed and stabilized. There was open and blood flow controlled with a 1.5 mm flow-through. It was a 1.5 to 1.75 mm vessel with excellent quality. Second piece of saphenous vein was anastomosed to the obtuse marginal with running 7-0 Prolene suture. On completion of the anastomosis the flow through was removed effectively probing the proximal and distal portion of the anastomosis. Suture was tied with good resultant hemostasis. Backbleeding was controlled with a bulldog clamp and the vein was cut to appropriate length to reach the diagonal graft. Next the inferior wall of the heart was exposed. The PDA had diffuse disease proximally. It was opened in its midportion beyond the disease. There was a 1.5 mm vessel of good quality. 1.5 mm flow-through was used to control the flow of blood during the anastomosis. Third piece of saphenous vein was anastomosed in end-to-side fashion with running 7-0 Prolene suture. On completion of the anastomosis, flow through was removed effectively probing the proximal and distal portion of the anastomosis. Suture was tied with good resultant hemostasis. Heart was lowered in an anatomic position and the vein was brought around to the ascending aorta. The usable portion of the vein was of adequate length to reach the ascending aorta. Vein was trimmed appropriately. Backbleeding was controlled with a bulldog clamp. Blood pressure was controlled and the partial-occlusion clamp placed on the mid ascending aorta. Two 4 mm punch holes were created. Proximal anastomosis for the diagonal graft and the plate PDA graft were both performed with running 6-0 Prolene suture. On completion of the anastomoses, they were de-aired with backbleeding and needle holes. Inflow was open. Next bulldog clamps were placed proximally and distally on the diagonal graft and a linear opening was made fairly distally on the graft in a longitudinal fashion. Obtuse marginal graft was anastomosed to this opening with running 7-0 Prolene suture. On completion of the anastomosis it was de-aired by backbleeding and the inflow open. Hemostasis was good. The MONTEMAYOR was brought through the pleura into the pericardium with a rent in the pleura and pericardium. The end of the MONTEMAYOR was prepared in the mid LAD was stabilized. The LAD was opened longitudinally in its midportion and blood flow controlled with a 1.5 mm flow-through, it was a 1.75 mm vessel. Anastomosis between the MONTEMAYOR and the LAD was performed with running 8-0 Prolene suture. On completion the anastomosis, the flow through was removed effectively probing the proximal and distal portion of the anastomosis. Suture was tied with good resultant hemostasis. Inflow was open. The MONTEMAYOR was noted to fill well. There is no kinking. There was more than adequate length. The NOA pedicle was tacked surrounding epicardium with 6-0 silk sutures. All surgical sites were now checked for hemostasis. Patient was weaned from cardiopulmonary bypass without the use of inotropic support. Left ventricular function was excellent and the patient was in stable sinus rhythm. Patient was decannulated in standard fashion. The aortic cannulation site was reinforced with a 4 oh pledgeted Prolene suture. Pump was recycled through the [employer] and given back to the patient. Surgical sites were checked for hemostasis. Mediastinum was drained with a 36 Malaysian chest tube. The chest was irrigated with antibiotic solution. Sternum was closed with 4 sternal wires and 2 plates. Fascia was closed with 0 Ethibond. Subcutaneous and subcuticular layers were closed with layers of Vicryl suture. Dry sterile dressings were applied and the patient was transferred to ICU in stable condition. She did receive 2 units of packed red blood cells during the procedure. She was on no inotropic support.
[2025-03-25] MEDS: NOREPINEPHRINE 8 MG in SODIUM CHLORIDE 0.9% 250 ML IV SCH (13:54)
[2025-03-25] MEDS: SODIUM CHLORIDE 0.9% 1,000 ML IV SCH (13:54)
[2025-03-25] MEDS: AMIODARONE 360 MG in DEXTROSE 5% IN WATER 200 ML IV PRN (13:54)
[2025-03-25] MEDS ORDERED: CLEVIDIPINE BUTYRATE 25 MG in EMPTY BAG 1 BAG IV PRN (14:00)
[2025-03-25 14:03] LABS: Glucose,Whole Blood 114 mg/dL (70-110)
[2025-03-25 14:07] LABS: Glucose,Whole Blood 130 mg/dL (70-110)
[2025-03-25] MEDS: ALBUMIN HUMAN 5% 250 ML in EMPTY BAG 1 BAG IVPB PRN (14:15)
[2025-03-25 14:17] LABS: ABG HCO3 24 mmol/L (21-25); ABG PCO2 45 mmHg (35-45); ABG PH 7.33 (7.35-7.45); ABG PO2 359 mmHg (83-108); ABG TCO2 25 mmol/L (19-24)
[2025-03-25 14:30] LABS: Basophils # (A) 0.05 10*3/uL (0.00-0.10); Basophils % (A) 0.3 %; Eosinophils # (A) 0.03 10*3/uL (0.04-0.35); Eosinophils % (A) 0.2 %; HCT 28.4 % (37.2-46.3); Lymphocytes # (A) 1.85 10*3/uL (0.90-5.00); Lymphocytes % (A) 10.3 %; MCH 28.8 pg (27.0-32.0); MCHC 33.5 g/dL (32.0-37.0); MCV 86.1 fL (80.0-97.0); Monocytes # (A) 1.10 10*3/uL (0.20-1.00); Monocytes % (A) 6.1 %; Neutrophils # (A) 14.80 10*3/uL (1.80-7.70); Neutrophils % (A) 82.4 %; RBC 3.30 10*6/uL (4.10-5.20); RDW 14.1 % (11.5-14.5); WBC 17.95 10*3/uL (4.50-10.00)
[2025-03-25 14:42] LABS: HGB 9.5 g/dL (12.0-15.0)
[2025-03-25] MEDS: NITROGLYCERIN-D5W PMX 50 MG in DEXTROSE/WATER 1 250ML.BAG IV SCH (14:53)
[2025-03-25] MEDS: INSULIN REGULAR 100 UNIT in SODIUM CHLORIDE 0.9% 100 ML IV SCH (14:54)
--- NOTE | 2025-03-25 14:55 | XR ---
EXAMINATION TYPE: XR chest 1V portable DATE OF EXAM: 03/25/2025 2:44 PM COMPARISON: Chest radiographs from 03/23/2025 CLINICAL INDICATION: Female, 75 years old with history of Post Operative Cardiac Surgery; [facility] TECHNIQUE: XR chest 1V portable Frontal view of the chest. FINDINGS: Lungs/Pleura: There is no evidence of pleural effusion, focal consolidation, or pneumothorax. Pulmonary vascularity: Unremarkable. Heart/mediastinum: Cardiomediastinal silhouette is unremarkable. Musculoskeletal: No acute osseous pathology. Midline sternotomy devices noted. Other findings: None Lines/Tubes: Endotracheal tube with distal tip 2.9cm above the seng. Nasogastric tube with its distal tip and side-port projecting under the diaphragm. There is a [place]-Brian catheter with tip projecting over the spine. Left thoracotomy tube is present without evidence of pneumothorax. IMPRESSION: Postsurgical changes with tubes and line as described above. [facility], , 03/25/2025 2:52 PM
[2025-03-25 15:02] LABS: INR 1.5 (<1.2); Partial Thromboplastin Time 32.0 sec (22.0-30.0); Prothrombin Time 15.6 sec (10.0-12.5)
[2025-03-25 15:09] LABS: Glucose,Whole Blood 107 mg/dL (70-110)
[2025-03-25 15:19] LABS: ALT 62 U/L (4-34); AST 116 U/L (14-36); African American GFR (CKD) 65 (>60 ml/min/1.73 sqM); Albumin 3.2 g/dL (3.5-5.0); Alkaline Phosphatase 36 U/L (38-126); Anion Gap 11 mmol/L; Blood Urea Nitrogen 22 mg/dL (7-17); Calcium 9.2 mg/dL (8.4-10.2); Carbon Dioxide 22 mmol/L (22-30); Chloride 107 mmol/L (98-107); Glucose 113 mg/dL (74-99); Magnesium 1.9 mg/dL (1.6-2.3); Non-African American GFR(CKD) 56 (>60 ml/min/1.73 sqM); Potassium 4.1 mmol/L (3.5-5.1); Sodium 140 mmol/L (137-145); Total Protein 4.7 g/dL (6.3-8.2)
[2025-03-25] MEDS: ACETAMINOPHEN IV (For NPO) 1,000 MG in EMPTY BAG 1 BAG IVPB SCH (15:48)
[2025-03-25] MEDS: HEPARIN SODIUM,PORCINE 5,000 UNIT/ML 1 ML VIAL SQ SCH (15:48)
[2025-03-25] MEDS: IPRATROPIUM-ALBUTEROL 3 ML NEB INHALATION SCH (16:03)
[2025-03-25 16:11] LABS: Platelet Count 98 10*3/uL (140-440)
[2025-03-25 16:21] LABS: Glucose,Whole Blood 143 mg/dL (70-110)
[2025-03-25 16:32] LABS: Basophils # (A) 0.01 10*3/uL (0.00-0.10); Basophils % (A) 0.1 %; Eosinophils # (A) 0.01 10*3/uL (0.04-0.35); Eosinophils % (A) 0.1 %; HCT 23.5 % (37.2-46.3); Lymphocytes # (A) 1.02 10*3/uL (0.90-5.00); Lymphocytes % (A) 9.0 %; MCH 28.8 pg (27.0-32.0); MCHC 33.6 g/dL (32.0-37.0); MCV 85.8 fL (80.0-97.0); Monocytes # (A) 1.09 10*3/uL (0.20-1.00); Monocytes % (A) 9.6 %; Neutrophils # (A) 9.19 10*3/uL (1.80-7.70); Neutrophils % (A) 80.6 %; RBC 2.74 10*6/uL (4.10-5.20); RDW 14.2 % (11.5-14.5); WBC 11.39 10*3/uL (4.50-10.00)
[2025-03-25 16:44] LABS: HGB 7.9 g/dL (12.0-15.0)
[2025-03-25 17:06] LABS: ABG HCO3 24 mmol/L (21-25); ABG PCO2 45 mmHg (35-45); ABG PH 7.33 (7.35-7.45); ABG PO2 158 mmHg (83-108); ABG TCO2 25 mmol/L (19-24)
[2025-03-25 17:08] LABS: Allen Test Performed? no
[2025-03-25 17:08] LABS: Allen Test Performed? no
[2025-03-25 17:19] LABS: Glucose,Whole Blood 139 mg/dL (70-110)
[2025-03-25 17:35] LABS: Platelet Count 64 10*3/uL (140-440)
[2025-03-25] MEDS: AMIODARONE 450 MG in DEXTROSE 5% IN WATER 250 ML IV PRN (18:00)
[2025-03-25] MEDS: MAGNESIUM SULFATE-D5W PMX 1 GM in DEXTROSE/WATER 1 100ML.BAG IVPB ONE (18:16)
[2025-03-25 18:40] LABS: Glucose,Whole Blood 215 mg/dL (70-110)
[2025-03-25 18:58] LABS: Basophils # (A) 0.02 10*3/uL (0.00-0.10); Basophils % (A) 0.2 %; Eosinophils # (A) 0.00 10*3/uL (0.04-0.35); Eosinophils % (A) 0.0 %; HCT 25.7 % (37.2-46.3); HGB 8.5 g/dL (12.0-15.0); Lymphocytes # (A) 0.76 10*3/uL (0.90-5.00); Lymphocytes % (A) 6.1 %; MCH 28.6 pg (27.0-32.0); MCHC 33.1 g/dL (32.0-37.0); MCV 86.5 fL (80.0-97.0); Monocytes # (A) 0.76 10*3/uL (0.20-1.00); Monocytes % (A) 6.1 %; Neutrophils # (A) 10.90 10*3/uL (1.80-7.70); Neutrophils % (A) 87.1 %; RBC 2.97 10*6/uL (4.10-5.20); RDW 14.3 % (11.5-14.5); WBC 12.50 10*3/uL (4.50-10.00)
[2025-03-25 19:21] LABS: Platelet Count 75 10*3/uL (140-440)
[2025-03-25 20:00] LABS: Glucose,Whole Blood 207 mg/dL (70-110)
[2025-03-25 20:56] LABS: Glucose,Whole Blood 187 mg/dL (70-110)
[2025-03-25] MEDS: MUPIROCIN 2% OINT 22 GM TUBE TOPICAL SCH (21:26)
[2025-03-25 21:55] LABS: Glucose,Whole Blood 158 mg/dL (70-110)
[2025-03-25 23:07] LABS: Glucose,Whole Blood 150 mg/dL (70-110)
[2025-03-25] MEDS: SENNOSIDES-DOCUSATE SODIUM 1 EACH TAB PO SCH (23:08)
[2025-03-26 00:01] LABS: Glucose,Whole Blood 143 mg/dL (70-110)
[2025-03-26] MEDS: hydrALAZINE HCL 20 MG/ML 1 ML VIAL IVP PRN (00:30)
[2025-03-26 01:09] LABS: Glucose,Whole Blood 144 mg/dL (70-110)
[2025-03-26 02:07] LABS: Glucose,Whole Blood 153 mg/dL (70-110)
[2025-03-26 03:04] LABS: Glucose,Whole Blood 154 mg/dL (70-110)
[2025-03-26 03:37] LABS: Basophils # (A) 0.01 10*3/uL (0.00-0.10); Basophils % (A) 0.1 %; Eosinophils # (A) 0.00 10*3/uL (0.04-0.35); Eosinophils % (A) 0.0 %; HCT 25.0 % (37.2-46.3); HGB 8.4 g/dL (12.0-15.0); Lymphocytes # (A) 0.46 10*3/uL (0.90-5.00); Lymphocytes % (A) 4.4 %; MCH 28.8 pg (27.0-32.0); MCHC 33.6 g/dL (32.0-37.0); MCV 85.6 fL (80.0-97.0); Monocytes # (A) 0.48 10*3/uL (0.20-1.00); Monocytes % (A) 4.6 %; Neutrophils # (A) 9.44 10*3/uL (1.80-7.70); Neutrophils % (A) 90.6 %; RBC 2.92 10*6/uL (4.10-5.20); RDW 14.6 % (11.5-14.5); WBC 10.42 10*3/uL (4.50-10.00)
[2025-03-26 03:42] LABS: Platelet Count 81 10*3/uL (140-440)
[2025-03-26 03:58] LABS: ALT 41 U/L (4-34); AST 71 U/L (14-36); African American GFR (CKD) 55 (>60 ml/min/1.73 sqM); Albumin 3.4 g/dL (3.5-5.0); Alkaline Phosphatase 37 U/L (38-126); Anion Gap 9 mmol/L; Blood Urea Nitrogen 22 mg/dL (7-17); Calcium 8.8 mg/dL (8.4-10.2); Carbon Dioxide 24 mmol/L (22-30); Chloride 106 mmol/L (98-107); Glucose 132 mg/dL (74-99); Magnesium 2.0 mg/dL (1.6-2.3); Non-African American GFR(CKD) 47 (>60 ml/min/1.73 sqM); Potassium 4.3 mmol/L (3.5-5.1); Sodium 139 mmol/L (137-145); Total Protein 5.0 g/dL (6.3-8.2)
[2025-03-26 04:05] LABS: Glucose,Whole Blood 133 mg/dL (70-110)
[2025-03-26] MEDS: ONDANSETRON 4 MG/2 ML VIAL IVP PRN (05:00)
[2025-03-26 05:07] LABS: Glucose,Whole Blood 121 mg/dL (70-110)
[2025-03-26] MEDS: IPRATROPIUM-ALBUTEROL 3 ML NEB INHALATION SCH (05:56)
[2025-03-26 06:25] LABS: Glucose,Whole Blood 120 mg/dL (70-110)
[2025-03-26] MEDS: METOCLOPRAMIDE 5 MG/ML 2 ML VIAL IVP PRN (06:53)
[2025-03-26 06:58] LABS: Glucose,Whole Blood 113 mg/dL (70-110)
--- NOTE | 2025-03-26 07:39 | P.PN ---
Subjective Progress Note Date: 03/26/25 Principal diagnosis: Multivessel coronary artery disease with left main disease, stable angina, acute kidney injury. Previous medical history of hypertension, hyperlipidemia, paro xysmal atrial fibrillation on Xarelto for anticoagulation outpatient, mild to moderate mitral valve regurgitation, diabetes mellitus type 2, obesity, gastroesophageal reflux disease, asthma, COVID in 2020, and lifelong non-smoker. Preoperative boil to right lateral chest as well as sebaceous cyst under left breast POD #1 pump assisted beating heart CABG x 4 with MONTEMAYOR to LAD, saphenous vein graft to second diagonal, obtuse marginal, PDA, modified Arshad-Maze procedure with bilateral pulmonary vein ablation and occlusion of the left atrial appendage with 35 mm AtriCure clip Postoperative acute blood loss anemia and thrombocytopenia, expected given hemodilution and pump assist The patient was seen and examined this morning sitting up in recliner in the intensive care unit in no acute distress. States pain is mostly controlled on current medication regimen, denies shortness of breath. Does states she feels sleepy. She was successfully extubated last night at 17:15. Remains in sinus rhythm, hemodynamically stable currently. Currently on 4 L nasal cannula with oxygen saturation in the high 90s, barely able to achieve 500 mL on her incentive spirometry. She was very labile after surgery, initially needing IV Levophed and volume replacement then hypertensive once extubated. She is currently on no inotropes or pressors. She is on IV amiodarone for A-fib prophylaxis, especially given history of atrial fibrillation. Right internal jugular Duchesne/Cordis, right radial arterial line, mediastinal/left pleural chest tubes all remain. Chest x-ray, labs reviewed. No other new concerns. Objective - Vital Signs Vital signs: Vital Signs Temp 97.9 F 03/26/25 04:00 Pulse 85 03/26/25 07:00 Resp 18 03/26/25 07:00 BP 122/54 03/26/25 07:00 Pulse Ox 96 03/26/25 07:00 FiO2 40 03/25/25 16:38 Intake & Output 03/25/25 03/26/25 03/26/25 18:59 06:59 18:59 Intake Total 1627.703 861.867 53 Output Total 1224 837 40 Balance 403.703 24.867 13 Weight 106.9 kg Intake: IV 1008 818 53 ACETAMINOPHEN IV (For NPO 100 ) 1,000 mg In Empty Bag 1 bag @ 400 mls/hr IVPB Q6HR COUNTS INCLUDE 234 BEDS AT THE [facility] Rx#:[id number] Albumin Human 5% 500 ml 500 In Empty Bag 1 bag @ 250 mls/hr IVPB ONCE ONE Rx#: [id number] CO/CI 80 Invasive Line 1 10 30 Magnesium Sulfate-D5w Pmx 100 1 gm In Dextrose/Water 1 100ml.bag @ 100 mls/hr IVPB ONCE ONE Rx#: [id number] Pressure Bag 45 108 3 Sodium Chloride 0.9% 1, 200 600 50 000 ml @ 20 mls/hr IV . Q24H COUNTS INCLUDE 234 BEDS AT THE [facility] Rx#:[id number] ceFAZolin 2 gm In Sodium 50 Chloride 0.9% 50 ml @ 100 mls/hr IVPB ONCE ONE Rx# :[id number] Intake, IV Titration 32.703 43.867 Amount Insulin Regular 100 unit 0.909 43.867 In Sodium Chloride 0.9% 100 ml @ Per Protocol IV .Q0M COUNTS INCLUDE 234 BEDS AT THE [facility] Rx#:[id number] Norepinephrine 8 mg In 20.117 Sodium Chloride 0.9% 250 ml @ 0.03 MCG/KG/MIN 5. 793 mls/hr IV .Q24H COUNTS INCLUDE 234 BEDS AT THE [facility] Rx#:[id number] propofoL 1,000 mg In 11.677 Empty Bag 1 bag @ Titrate IV .Q0M COUNTS INCLUDE 234 BEDS AT THE [facility] Rx#: [id number] Blood Product 587 Rc Pheresis As-3 Unit 311 [id number] Rc Pheresis As-3 Unit 276 [id number] Output: Chest Tube Drainage 159 387 0 Left Pleural Chest Tube 60 242 0 Mediastinal Chest Tube 99 145 0 Drainage 60 10 Left leg ERICKA 60 10 Urine 655 450 30 Estimated Blood Loss 350 Other: Voiding Method Indwelling Catheter Indwelling Catheter ABP, PAP, CO, CI - Last Documented Arterial Blood Pressure 100/43 Pulmonary Artery Pressure 45/24 Cardiac Output 4.2 Cardiac Index 2.1 - Exam CONSTITUTIONAL: Appears comfortable, cooperative, no acute distress RESPIRATORY: Lungs sounds diminished in the bases bilaterally. Respirations even, nonlabored. Currently on nasal cannula with oxygen saturation 97%. Able to achieve 500 mL on incentive spirometry. Strong cough. CARDIOVASCULAR: S1, S2 present. Regular rate and rhythm, sinus rhythm on telemetry. Sternum stable. Palpable peripheral pulses bilaterally. Bilateral lower extremity edema present. No calf pain or tenderness noted. Heart hugger in place with patient demonstrating appropriate use. Antiembolism stockings, SCDs present. GASTROINTESTINAL: Abdomen soft, nontender, nondistended. Hypoactive bowel sounds present 4 quadrants. Tolerating her liquids. Denies flatus GENITOURINARY: John present draining clear, yellow urine. Output overnight 30-40 mL per hour INTEGUMENTARY: Skin is warm and dry. Anterior chest incision well approximated and covered with dry intact dressing. Extremity EVH site well approximated, ERICKA drain present with minimal serous drainage. Boil to right lateral chest cleaned out in the surgery and packed with iodoform gauze. Cyst under left breast covered with dry dressing NEUROLOGIC: Cranial nerves II through XII intact MUSKULOSKELETAL: Able to move all extremities, strength equal bilaterally PSYCHIATRIC: Alert and oriented to person place and time, appropriate affect, intact judgment and insight INVASIVE LINES AND TUBES: Mediastinal/left pleural chest tubes present and connected to wall suction, no air leaks present. Mediastinal tube with 95 mL serosanguineous drainage overnight, 250 mL since surgery. Left pleural chest tube with 175 mL serosanguineous drainage overnight, 300 mL since surgery. Right internal jugular Duchesne/Cordis, right radial arterial line present. Last CO/CI 4.2/2.1, PA 40/20, CVP 10. - Allied health notes Allied health notes reviewed: nursing - Labs CBC & Chem 7: 03/26/25 03:03 03/26/25 03:03 Labs: Abnormal Lab Results - Last 24 Hours (Table) 03/24/25 03/25/25 03/25/25 Range/Units 06:33 08:43 10:10 WBC (4.50-10.00) 10*3/uL RBC (4.10-5.20) 10*6/uL Hgb (12.0-15.0) g/dL Hct (37.2-46.3) % Plt Count (140-440) 10*3/uL MPV (9.5-12.2) fL Immature Gran # (0.00-0.04) 10*3/uL Neutrophils # (1.80-7.70) 10*3/uL Lymphocytes # (0.90-5.00) 10*3/uL Monocytes # (0.20-1.00) 10*3/uL Eosinophils # (0.04-0.35) 10*3/uL PT (10.0-12.5) sec INR (<1.2) APTT (22.0-30.0) sec ABG pH (7.35-7.45) ABG pCO2 (35-45) mmHg ABG pO2 322 H 267 H (83-108) mmHg ABG HCO3 (21-25) mmol/L ABG Total CO2 (19-24) mmol/L ABG O2 Saturation >99.4 H >99.4 H (94-97) % ABG Hematocrit 32 L 27 L (34.0-46.0) % ABG Ionized Calcium (4.5-5.3) mg/dL ABG Glucose 143 H 153 H (75-99) mg/dL ABG Lactic Acid (0.5-1.6) mmol/L Hemoglobin 10.6 L 8.7 L (11.4-16.0) gm/dL BUN (7-17) mg/dL Creatinine (0.52-1.04) mg/dL Glucose (74-99) mg/dL POC Glucose (mg/dL) (70-110) mg/dL AST (14-36) U/L ALT (4-34) U/L Alkaline Phosphatase (38-126) U/L Total Protein (6.3-8.2) g/dL Albumin (3.5-5.0) g/dL Arterial Blood Glucose 143 H 153 H (75-99) mg/dL Crossmatch See Detail 03/25/25 03/25/25 03/25/25 Range/Units 10:45 11:15 11:45 WBC (4.50-10.00) 10*3/uL RBC (4.10-5.20) 10*6/uL Hgb (12.0-15.0) g/dL Hct (37.2-46.3) % Plt Count (140-440) 10*3/uL MPV (9.5-12.2) fL Immature Gran # (0.00-0.04) 10*3/uL Neutrophils # (1.80-7.70) 10*3/uL Lymphocytes # (0.90-5.00) 10*3/uL Monocytes # (0.20-1.00) 10*3/uL Eosinophils # (0.04-0.35) 10*3/uL PT (10.0-12.5) sec INR (<1.2) APTT (22.0-30.0) sec ABG pH (7.35-7.45) ABG pCO2 30 L (35-45) mmHg ABG pO2 >420 H >420 H >420 H (83-108) mmHg ABG HCO3 20 L (21-25) mmol/L ABG Total CO2 (19-24) mmol/L ABG O2 Saturation 98.7 H >99.4 H >99.4 H (94-97) % ABG Hematocrit 28 L 21 L 21 L (34.0-46.0) % ABG Ionized Calcium 4.1 L 4.1 L (4.5-5.3) mg/dL ABG Glucose 199 H 207 H 176 H (75-99) mg/dL ABG Lactic Acid 3.4 H* 3.0 H* 2.6 H* (0.5-1.6) mmol/L Hemoglobin 9.2 L 6.9 L* 6.7 L* (11.4-16.0) gm/dL BUN (7-17) mg/dL Creatinine (0.52-1.04) mg/dL Glucose (74-99) mg/dL POC Glucose (mg/dL) (70-110) mg/dL AST (14-36) U/L ALT (4-34) U/L Alkaline Phosphatase (38-126) U/L Total Protein (6.3-8.2) g/dL Albumin (3.5-5.0) g/dL Arterial Blood Glucose 199 H 207 H 176 H (75-99) mg/dL Crossmatch 03/25/25 03/25/25 03/25/25 Range/Units 12:45 14:01 14:05 WBC 17.95 H (4.50-10.00) 10*3/uL RBC 3.30 L (4.10-5.20) 10*6/uL Hgb 9.5 L D (12.0-15.0) g/dL Hct 28.4 L (37.2-46.3) % Plt Count 98 L D (140-440) 10*3/uL MPV (9.5-12.2) fL Immature Gran # 0.12 H (0.00-0.04) 10*3/uL Neutrophils # 14.80 H (1.80-7.70) 10*3/uL Lymphocytes # (0.90-5.00) 10*3/uL Monocytes # 1.10 H (0.20-1.00) 10*3/uL Eosinophils # 0.03 L (0.04-0.35) 10*3/uL PT (10.0-12.5) sec INR (<1.2) APTT (22.0-30.0) sec ABG pH (7.35-7.45) ABG pCO2 (35-45) mmHg ABG pO2 124 H (83-108) mmHg ABG HCO3 (21-25) mmol/L ABG Total CO2 (19-24) mmol/L ABG O2 Saturation 98.4 H (94-97) % ABG Hematocrit 27 L (34.0-46.0) % ABG Ionized Calcium 5.4 H (4.5-5.3) mg/dL ABG Glucose 160 H (75-99) mg/dL ABG Lactic Acid 3.3 H* (0.5-1.6) mmol/L Hemoglobin 8.9 L (11.4-16.0) gm/dL BUN (7-17) mg/dL Creatinine (0.52-1.04) mg/dL Glucose (74-99) mg/dL POC Glucose (mg/dL) 114 H (70-110) mg/dL AST (14-36) U/L ALT (4-34) U/L Alkaline Phosphatase (38-126) U/L Total Protein (6.3-8.2) g/dL Albumin (3.5-5.0) g/dL Arterial Blood Glucose 160 H (75-99) mg/dL Crossmatch 03/25/25 03/25/25 03/25/25 Range/Units 14:05 14:05 14:06 WBC (4.50-10.00) 10*3/uL RBC (4.10-5.20) 10*6/uL Hgb (12.0-15.0) g/dL Hct (37.2-46.3) % Plt Count (140-440) 10*3/uL MPV (9.5-12.2) fL Immature Gran # (0.00-0.04) 10*3/uL Neutrophils # (1.80-7.70) 10*3/uL Lymphocytes # (0.90-5.00) 10*3/uL Monocytes # (0.20-1.00) 10*3/uL Eosinophils # (0.04-0.35) 10*3/uL PT 15.6 H (10.0-12.5) sec INR 1.5 H (<1.2) APTT 32.0 H (22.0-30.0) sec ABG pH (7.35-7.45) ABG pCO2 (35-45) mmHg ABG pO2 (83-108) mmHg ABG HCO3 (21-25) mmol/L ABG Total CO2 (19-24) mmol/L ABG O2 Saturation (94-97) % ABG Hematocrit (34.0-46.0) % ABG Ionized Calcium (4.5-5.3) mg/dL ABG Glucose (75-99) mg/dL ABG Lactic Acid (0.5-1.6) mmol/L Hemoglobin (11.4-16.0) gm/dL BUN 22 H (7-17) mg/dL Creatinine (0.52-1.04) mg/dL Glucose 113 H (74-99) mg/dL POC Glucose (mg/dL) 130 H (70-110) mg/dL AST 116 H (14-36) U/L ALT 62 H (4-34) U/L Alkaline Phosphatase 36 L (38-126) U/L Total Protein 4.7 L (6.3-8.2) g/dL Albumin 3.2 L (3.5-5.0) g/dL Arterial Blood Glucose (75-99) mg/dL Crossmatch 03/25/25 03/25/25 03/25/25 Range/Units 14:15 15:36 16:20 WBC 11.39 H (4.50-10.00) 10*3/uL RBC 2.74 L (4.10-5.20) 10*6/uL Hgb 7.9 L D (12.0-15.0) g/dL Hct 23.5 L (37.2-46.3) % Plt Count 64 L (140-440) 10*3/uL MPV 9.4 L (9.5-12.2) fL Immature Gran # 0.07 H (0.00-0.04) 10*3/uL Neutrophils # 9.19 H (1.80-7.70) 10*3/uL Lymphocytes # (0.90-5.00) 10*3/uL Monocytes # 1.09 H (0.20-1.00) 10*3/uL Eosinophils # 0.01 L (0.04-0.35) 10*3/uL PT (10.0-12.5) sec INR (<1.2) APTT (22.0-30.0) sec ABG pH 7.33 L (7.35-7.45) ABG pCO2 (35-45) mmHg ABG pO2 359 H (83-108) mmHg ABG HCO3 (21-25) mmol/L ABG Total CO2 25 H (19-24) mmol/L ABG O2 Saturation 100.0 H (94-97) % ABG Hematocrit (34.0-46.0) % ABG Ionized Calcium (4.5-5.3) mg/dL ABG Glucose (75-99) mg/dL ABG Lactic Acid (0.5-1.6) mmol/L Hemoglobin 9.4 L (11.4-16.0) gm/dL BUN (7-17) mg/dL Creatinine (0.52-1.04) mg/dL Glucose (74-99) mg/dL POC Glucose (mg/dL) 143 H (70-110) mg/dL AST (14-36) U/L ALT (4-34) U/L Alkaline Phosphatase (38-126) U/L Total Protein (6.3-8.2) g/dL Albumin (3.5-5.0) g/dL Arterial Blood Glucose (75-99) mg/dL Crossmatch 03/25/25 03/25/25 03/25/25 Range/Units 17:04 17:18 18:39 WBC (4.50-10.00) 10*3/uL RBC (4.10-5.20) 10*6/uL Hgb (12.0-15.0) g/dL Hct (37.2-46.3) % Plt Count (140-440) 10*3/uL MPV (9.5-12.2) fL Immature Gran # (0.00-0.04) 10*3/uL Neutrophils # (1.80-7.70) 10*3/uL Lymphocytes # (0.90-5.00) 10*3/uL Monocytes # (0.20-1.00) 10*3/uL Eosinophils # (0.04-0.35) 10*3/uL PT (10.0-12.5) sec INR (<1.2) APTT (22.0-30.0) sec ABG pH 7.33 L (7.35-7.45) ABG pCO2 (35-45) mmHg ABG pO2 158 H (83-108) mmHg ABG HCO3 (21-25) mmol/L ABG Total CO2 25 H (19-24) mmol/L ABG O2 Saturation 99.7 H (94-97) % ABG Hematocrit (34.0-46.0) % ABG Ionized Calcium (4.5-5.3) mg/dL ABG Glucose (75-99) mg/dL ABG Lactic Acid (0.5-1.6) mmol/L Hemoglobin 8.3 L (11.4-16.0) gm/dL BUN (7-17) mg/dL Creatinine (0.52-1.04) mg/dL Glucose (74-99) mg/dL POC Glucose (mg/dL) 139 H 215 H (70-110) mg/dL AST (14-36) U/L ALT (4-34) U/L Alkaline Phosphatase (38-126) U/L Total Protein (6.3-8.2) g/dL Albumin (3.5-5.0) g/dL Arterial Blood Glucose (75-99) mg/dL Crossmatch 03/25/25 03/25/25 03/25/25 Range/Units 18:40 19:59 20:55 WBC 12.50 H (4.50-10.00) 10*3/uL RBC 2.97 L (4.10-5.20) 10*6/uL Hgb 8.5 L (12.0-15.0) g/dL Hct 25.7 L (37.2-46.3) % Plt Count 75 L (140-440) 10*3/uL MPV (9.5-12.2) fL Immature Gran # 0.06 H (0.00-0.04) 10*3/uL Neutrophils # 10.90 H (1.80-7.70) 10*3/uL Lymphocytes # 0.76 L (0.90-5.00) 10*3/uL Monocytes # (0.20-1.00) 10*3/uL Eosinophils # 0.00 L (0.04-0.35) 10*3/uL PT (10.0-12.5) sec INR (<1.2) APTT (22.0-30.0) sec ABG pH (7.35-7.45) ABG pCO2 (35-45) mmHg ABG pO2 (83-108) mmHg ABG HCO3 (21-25) mmol/L ABG Total CO2 (19-24) mmol/L ABG O2 Saturation (94-97) % ABG Hematocrit (34.0-46.0) % ABG Ionized Calcium (4.5-5.3) mg/dL ABG Glucose (75-99) mg/dL ABG Lactic Acid (0.5-1.6) mmol/L Hemoglobin (11.4-16.0) gm/dL BUN (7-17) mg/dL Creatinine (0.52-1.04) mg/dL Glucose (74-99) mg/dL POC Glucose (mg/dL) 207 H 187 H (70-110) mg/dL AST (14-36) U/L ALT (4-34) U/L Alkaline Phosphatase (38-126) U/L Total Protein (6.3-8.2) g/dL Albumin (3.5-5.0) g/dL Arterial Blood Glucose (75-99) mg/dL Crossmatch 03/25/25 03/25/25 03/26/25 Range/Units 21:54 23:05 00:00 WBC (4.50-10.00) 10*3/uL RBC (4.10-5.20) 10*6/uL Hgb (12.0-15.0) g/dL Hct (37.2-46.3) % Plt Count (140-440) 10*3/uL MPV (9.5-12.2) fL Immature Gran # (0.00-0.04) 10*3/uL Neutrophils # (1.80-7.70) 10*3/uL Lymphocytes # (0.90-5.00) 10*3/uL Monocytes # (0.20-1.00) 10*3/uL Eosinophils # (0.04-0.35) 10*3/uL PT (10.0-12.5) sec INR (<1.2) APTT (22.0-30.0) sec ABG pH (7.35-7.45) ABG pCO2 (35-45) mmHg ABG pO2 (83-108) mmHg ABG HCO3 (21-25) mmol/L ABG Total CO2 (19-24) mmol/L ABG O2 Saturation (94-97) % ABG Hematocrit (34.0-46.0) % ABG Ionized Calcium (4.5-5.3) mg/dL ABG Glucose (75-99) mg/dL ABG Lactic Acid (0.5-1.6) mmol/L Hemoglobin (11.4-16.0) gm/dL BUN (7-17) mg/dL Creatinine (0.52-1.04) mg/dL Glucose (74-99) mg/dL POC Glucose (mg/dL) 158 H 150 H 143 H (70-110) mg/dL AST (14-36) U/L ALT (4-34) U/L Alkaline Phosphatase (38-126) U/L Total Protein (6.3-8.2) g/dL Albumin (3.5-5.0) g/dL Arterial Blood Glucose (75-99) mg/dL Crossmatch 03/26/25 03/26/25 03/26/25 Range/Units 01:08 02:06 03:03 WBC 10.42 H (4.50-10.00) 10*3/uL RBC 2.92 L (4.10-5.20) 10*6/uL Hgb 8.4 L (12.0-15.0) g/dL Hct 25.0 L (37.2-46.3) % Plt Count 81 L (140-440) 10*3/uL MPV (9.5-12.2) fL Immature Gran # (0.00-0.04) 10*3/uL Neutrophils # 9.44 H (1.80-7.70) 10*3/uL Lymphocytes # 0.46 L (0.90-5.00) 10*3/uL Monocytes # (0.20-1.00) 10*3/uL Eosinophils # 0.00 L (0.04-0.35) 10*3/uL PT (10.0-12.5) sec INR (<1.2) APTT (22.0-30.0) sec ABG pH (7.35-7.45) ABG pCO2 (35-45) mmHg ABG pO2 (83-108) mmHg ABG HCO3 (21-25) mmol/L ABG Total CO2 (19-24) mmol/L ABG O2 Saturation (94-97) % ABG Hematocrit (34.0-46.0) % ABG Ionized Calcium (4.5-5.3) mg/dL ABG Glucose (75-99) mg/dL ABG Lactic Acid (0.5-1.6) mmol/L Hemoglobin (11.4-16.0) gm/dL BUN (7-17) mg/dL Creatinine (0.52-1.04) mg/dL Glucose (74-99) mg/dL POC Glucose (mg/dL) 144 H 153 H (70-110) mg/dL AST (14-36) U/L ALT (4-34) U/L Alkaline Phosphatase (38-126) U/L Total Protein (6.3-8.2) g/dL Albumin (3.5-5.0) g/dL Arterial Blood Glucose (75-99) mg/dL Crossmatch 03/26/25 03/26/25 03/26/25 Range/Units 03:03 03:03 04:03 WBC (4.50-10.00) 10*3/uL RBC (4.10-5.20) 10*6/uL Hgb (12.0-15.0) g/dL Hct (37.2-46.3) % Plt Count (140-440) 10*3/uL MPV (9.5-12.2) fL Immature Gran # (0.00-0.04) 10*3/uL Neutrophils # (1.80-7.70) 10*3/uL Lymphocytes # (0.90-5.00) 10*3/uL Monocytes # (0.20-1.00) 10*3/uL Eosinophils # (0.04-0.35) 10*3/uL PT (10.0-12.5) sec INR (<1.2) APTT (22.0-30.0) sec ABG pH (7.35-7.45) ABG pCO2 (35-45) mmHg ABG pO2 (83-108) mmHg ABG HCO3 (21-25) mmol/L ABG Total CO2 (19-24) mmol/L ABG O2 Saturation (94-97) % ABG Hematocrit (34.0-46.0) % ABG Ionized Calcium (4.5-5.3) mg/dL ABG Glucose (75-99) mg/dL ABG Lactic Acid (0.5-1.6) mmol/L Hemoglobin (11.4-16.0) gm/dL BUN 22 H (7-17) mg/dL Creatinine 1.13 H (0.52-1.04) mg/dL Glucose 132 H (74-99) mg/dL POC Glucose (mg/dL) 154 H 133 H (70-110) mg/dL AST 71 H (14-36) U/L ALT 41 H (4-34) U/L Alkaline Phosphatase 37 L (38-126) U/L Total Protein 5.0 L (6.3-8.2) g/dL Albumin 3.4 L (3.5-5.0) g/dL Arterial Blood Glucose (75-99) mg/dL Crossmatch 03/26/25 03/26/25 03/26/25 Range/Units 05:06 06:23 06:56 WBC (4.50-10.00) 10*3/uL RBC (4.10-5.20) 10*6/uL Hgb (12.0-15.0) g/dL Hct (37.2-46.3) % Plt Count (140-440) 10*3/uL MPV (9.5-12.2) fL Immature Gran # (0.00-0.04) 10*3/uL Neutrophils # (1.80-7.70) 10*3/uL Lymphocytes # (0.90-5.00) 10*3/uL Monocytes # (0.20-1.00) 10*3/uL Eosinophils # (0.04-0.35) 10*3/uL PT (10.0-12.5) sec INR (<1.2) APTT (22.0-30.0) sec ABG pH (7.35-7.45) ABG pCO2 (35-45) mmHg ABG pO2 (83-108) mmHg ABG HCO3 (21-25) mmol/L ABG Total CO2 (19-24) mmol/L ABG O2 Saturation (94-97) % ABG Hematocrit (34.0-46.0) % ABG Ionized Calcium (4.5-5.3) mg/dL ABG Glucose (75-99) mg/dL ABG Lactic Acid (0.5-1.6) mmol/L Hemoglobin (11.4-16.0) gm/dL BUN (7-17) mg/dL Creatinine (0.52-1.04) mg/dL Glucose (74-99) mg/dL POC Glucose (mg/dL) 121 H 120 H 113 H (70-110) mg/dL AST (14-36) U/L ALT (4-34) U/L Alkaline Phosphatase (38-126) U/L Total Protein (6.3-8.2) g/dL Albumin (3.5-5.0) g/dL Arterial Blood Glucose (75-99) mg/dL Crossmatch - Imaging and Cardiology Chest x-ray: image reviewed Assessment and Plan Assessment: Multivessel coronary artery disease with left main disease, stable angina status post four-vessel CABG Preoperative acute kidney injury Preoperative boil to right lateral chest as well as sebaceous cyst under left breast Postoperative acute blood loss anemia and thrombocytopenia, expected given hemodilution and pump assist History of hypertension Hyperlipidemia Paroxysmal atrial fibrillation on Xarelto for anticoagulation outpatient, status post modified Arshad-Maze and left atrial appendage ligation Mild to moderate mitral valve regurgitation Diabetes mellitus type 2, hemoglobin A1c 6.5% Obesity Gastroesophageal reflux disease Asthma COVID in 2019 Lifelong non-smoker, preoperative FEV1 94% predicted Plan: Continue to maximize medical therapy with aspirin, statin, Plavix, beta-zhane. Will increase beta-zhane therapy as tolerated Continue amiodarone for atrial fibrillation prophylaxis, will transition to oral. Patient currently using normal sinus rhythm. No anticoagulation at this time Wean oxygen as tolerated. Encourage incentive spirometry use 10 times every hour while awake, bronchodilators per pulmonology Will monitor daily labs and x-rays. Electrolyte replacement per protocol Increase activity, ambulate as tolerated. PT/OT/cardiac rehab consulted GI/DVT prophylaxis Insulin management per internal medicine, patient should remain on continuous IV insulin for 48 hours then may transition to subcutaneous per protocol Pain control per current medication regimen. Robaxin added. No Toradol due to kidney disease Discontinue Duchesne, connect Cordis to continuous CVP monitoring Discontinue ERICKA drain Continue chest tubes for another 24 hours, monitor record output Continue John catheter for another 24 hours, monitor and record strict accurate intake and output Daily weights More recommendations to follow as patient progresses
--- NOTE | 2025-03-26 07:54 | XR ---
EXAMINATION TYPE: XR chest 1V portable DATE OF EXAM: 03/26/2025 5:59 AM COMPARISON: Chest radiographs from 03/25/2025 TECHNIQUE: XR chest 1V portable Portable AP radiograph of the chest. CLINICAL INDICATION:Female, 75 years old with history of Post Operative Cardiac Surgery; FINDINGS: Lungs/Pleura: No discrete pneumothorax. Left lower lung Pulmonary vascularity: Unremarkable. Heart/mediastinum: Cardiomediastinal silhouette is enlarged and stable. Left atrial appendage occlusi on devices present. Musculoskeletal: No acute osseous pathology. Postsurgical changes of the sternum with fixation hardwa re. Other findings: None Lines/Tubes: Interval removal of endotracheal and NG tubes. Stable right IJ approach [place] catheter with tip projecting over the spine. Stable inferior approach mediastinal drain. Left-sided thoracotomy tube has been slightly retracted into the lower lung. IMPRESSION: Postsurgical changes with lines and tubes as described above. No pneumothorax. [facility], , 03/26/2025 7:52 AM
[2025-03-26 08:12] LABS: Glucose,Whole Blood 148 mg/dL (70-110)
[2025-03-26] MEDS: CLOPIDOGREL 75 MG TAB PO SCH (08:42)
[2025-03-26] MEDS: CHOLECALCIFEROL 25 MCG (1000 IU) TABLET PO SCH (08:42)
[2025-03-26] MEDS: ATORVASTATIN 40 MG TAB PO SCH (08:42)
[2025-03-26] MEDS: PANTOPRAZOLE 40 MG/10 ML VIAL IVP SCH (08:42)
[2025-03-26] MEDS: METOPROLOL TARTRATE 12.5 MG TAB PO SCH (08:42)
[2025-03-26] MEDS: ZINC SULFATE 220 MG CAP PO SCH (08:42)
[2025-03-26] MEDS: ASPIRIN 325 MG TAB PO SCH (08:42)
[2025-03-26] MEDS: AMIODARONE 200 MG TAB PO SCH (08:42)
[2025-03-26] MEDS ORDERED: ASPIRIN 81 MG PO SCH (09:00)
[2025-03-26 09:02] LABS: Glucose,Whole Blood 168 mg/dL (70-110)
[2025-03-26] MEDS: BENZOCAINE/MENTHOL LOZENG 1 EACH LOZENGE MUCOUS MEM PRN (09:18)
[2025-03-26 11:03] LABS: Glucose,Whole Blood 162 mg/dL (70-110)
[2025-03-26 11:42] VITALS: BMI 40.4
[2025-03-26 12:00] LABS: Glucose,Whole Blood 109 mg/dL (70-110)
--- NOTE | 2025-03-26 12:17 | P.PN ---
Subjective Progress Note Date: 03/26/25 Principal diagnosis: CABG Pulmonary consult dated March 24, 2025. 75-year-old female who was recently seen by cardiology, and, is apparently going to have CABG, on March 25, 2025. We were consulted, for input regarding her pulmonary status, her mild asthma, and what to anticipate, after surgery. The patient had a cardiac catheterization, on March 23. It showed calcified coronary arteries, significant disease in the distal left main, severe disease in the ostium of the right coronary artery, and proximal LAD, and moderately severe disease in the proximal left circumflex coronary artery. The patient does have a history of mild asthma. She takes an albuterol inhaler only as needed. She is a lifelong non-smoker. Does not really complain much of any lung issues or lung complaints. She denies any coughing, wheezing, chest tightness, or phlegm production. She does have a history of hypertension, hyperlipidemia, atrial fibrillation, diabetes mellitus, type II, recent abnormal stress test, and mild tricuspid valve regurgitation. In addition, she has moderate mitral valve regurgitation, and obesity, as well as GERD, and previous coronavirus infection. Current labs include a white count of 7.9, hemoglobin 12.4, hematocrit 39.1, and a platelet count of 211,000. Sodium 141, potassium 4.7, chlorides 104, CO2 29, anion gap 8, BUN 30, creatinine 1.44. Glucose is 101. The rest of the labs within normal. Cholesterol was 128. TSH was normal. Chest x-ray showed no acute cardiopulmonary disease. Chest CT showed no suspicious lung mass or nodule, and no acute cardiopulmonary disease. Progress note dated March 26, 2025. 75-year-old female postop day #1, status post four-vessel bypass surgery. She was extubated yesterday, March time. She is currently on amiodarone 0.5 mg/min, 0.9 saline at 50 cc an hour, and insulin drip at 6.5 units an hour. She continu es on nasal O2 at 4 L. Clinically, she is doing well. She is sitting in the chair next to the hospital bed. Her weaning parameters, and blood gases were excellent, prior to extubation. Current labs include a white count of 10.4, hemoglobin 8.4, hematocrit 25, and platelet count 81,000. Sodium 139, potassium 4.3, chlorides 106, CO2 24, anion gap 9, BUN 22, creatinine 1.13. Glucose is 132. The rest of the labs are reviewed. Chest x-ray shows postsurgical changes, typical status post CABG. Objective - Vital Signs Vital signs: Vital Signs Temp 97.9 F 03/26/25 08:00 Pulse 82 03/26/25 11:46 Resp 18 03/26/25 11:00 BP 127/55 03/26/25 11:00 Pulse Ox 94 L 03/26/25 11:00 FiO2 40 03/25/25 16:38 Intake & Output 03/25/25 03/26/25 03/26/25 18:59 06:59 18:59 Intake Total 1627.703 861.867 783.629 Output Total 1224 837 185 Balance 403.703 24.867 598.629 Weight 106.9 kg 106.9 kg Intake: IV 1008 818 252 ACETAMINOPHEN IV (For NPO 100 ) 1,000 mg In Empty Bag 1 bag @ 400 mls/hr IVPB Q6HR [facility] Rx#:[id number] Albumin Human 5% 500 ml 500 In Empty Bag 1 bag @ 250 mls/hr IVPB ONCE ONE Rx#: [id number] CO/CI 80 Invasive Line 1 10 30 10 Magnesium Sulfate-D5w Pmx 100 1 gm In Dextrose/Water 1 100ml.bag @ 100 mls/hr IVPB ONCE ONE Rx#: [id number] Pressure Bag 45 108 42 Sodium Chloride 0.9% 1, 200 600 150 000 ml @ 20 mls/hr IV . Q24H [facility] Rx#:[id number] ceFAZolin 2 gm In Sodium 50 50 Chloride 0.9% 50 ml @ 100 mls/hr IVPB ONCE ONE Rx# :[id number] Intake, IV Titration 32.703 43.867 281.629 Amount Amiodarone 450 mg In 250 Dextrose 5% in Water 250 ml @ 0.5 MG/MIN 16.667 mls/hr IV .Q15H PRN Rx#: [id number] Insulin Regular 100 unit 0.909 43.867 31.629 In Sodium Chloride 0.9% 100 ml @ Per Protocol IV .Q0M [facility] Rx#:[id number] Norepinephrine 8 mg In 20.117 Sodium Chloride 0.9% 250 ml @ 0.03 MCG/KG/MIN 5. 793 mls/hr IV .Q24H [facility] Rx#:[id number] propofoL 1,000 mg In 11.677 Empty Bag 1 bag @ Titrate IV .Q0M [facility] Rx#: [id number] Oral 250 Blood Product 587 Rc Pheresis As-3 Unit 311 [id number] Rc Pheresis As-3 Unit 276 [id number] Output: Chest Tube Drainage 159 387 50 Left Pleural Chest Tube 60 242 50 Mediastinal Chest Tube 99 145 0 Drainage 60 10 Left leg ERICKA 60 10 Urine 655 450 125 Estimated Blood Loss 350 Other: Voiding Method Indwelling Catheter Indwelling Catheter ABP, PAP, CO, CI - Last Documented Arterial Blood Pressure 105/38 Pulmonary Artery Pressure 39/13 Cardiac Output 4.2 Cardiac Index 2.1 - Exam No acute distress, oriented 3. Currently on 4 L nasal cannula. HEENT examination is grossly unremarkable. Mucous membranes are moist. No oral lesions. Neck supple. Full range of motion. No adenopathy thyromegaly or neck vein distention. Cardiovascular examination reveals regular rhythm rate. S1-S2 normal. No S3 or S4. No discernible murmur noted. Heart sounds are distant. Lungs reveal scattered bilateral rhonchi. No wheezes or crackles. Breath sounds equal. Abdomen soft bowel sounds are heard. No masses or tenderness. Extremities are intact. No cyanosis clubbing or edema. Skin is without rash or lesion. Neurologic examination is brief but nonfocal. - Labs CBC & Chem 7: 03/26/25 03:03 03/26/25 03:03 Labs: Abnormal Lab Results - Last 24 Hours (Table) 03/24/25 03/25/25 03/25/25 Range/Units 06:33 08:43 10:10 WBC (4.50-10.00) 10*3/uL RBC (4.10-5.20) 10*6/uL Hgb (12.0-15.0) g/dL Hct (37.2-46.3) % Plt Count (140-440) 10*3/uL MPV (9.5-12.2) fL Immature Gran # (0.00-0.04) 10*3/uL Neutrophils # (1.80-7.70) 10*3/uL Lymphocytes # (0.90-5.00) 10*3/uL Monocytes # (0.20-1.00) 10*3/uL Eosinophils # (0.04-0.35) 10*3/uL PT (10.0-12.5) sec INR (<1.2) APTT (22.0-30.0) sec ABG pH (7.35-7.45) ABG pCO2 (35-45) mmHg ABG pO2 322 H 267 H (83-108) mmHg ABG HCO3 (21-25) mmol/L ABG Total CO2 (19-24) mmol/L ABG O2 Saturation >99.4 H >99.4 H (94-97) % ABG Hematocrit 32 L 27 L (34.0-46.0) % ABG Ionized Calcium (4.5-5.3) mg/dL ABG Glucose 143 H 153 H (75-99) mg/dL ABG Lactic Acid (0.5-1.6) mmol/L Hemoglobin 10.6 L 8.7 L (11.4-16.0) gm/dL BUN (7-17) mg/dL Creatinine (0.52-1.04) mg/dL Glucose (74-99) mg/dL POC Glucose (mg/dL) (70-110) mg/dL AST (14-36) U/L ALT (4-34) U/L Alkaline Phosphatase (38-126) U/L Total Protein (6.3-8.2) g/dL Albumin (3.5-5.0) g/dL Arterial Blood Glucose 143 H 153 H (75-99) mg/dL Crossmatch See Detail 03/25/25 03/25/25 03/25/25 Range/Units 10:45 11:15 11:45 WBC (4.50-10.00) 10*3/uL RBC (4.10-5.20) 10*6/uL Hgb (12.0-15.0) g/dL Hct (37.2-46.3) % Plt Count (140-440) 10*3/uL MPV (9.5-12.2) fL Immature Gran # (0.00-0.04) 10*3/uL Neutrophils # (1.80-7.70) 10*3/uL Lymphocytes # (0.90-5.00) 10*3/uL Monocytes # (0.20-1.00) 10*3/uL Eosinophils # (0.04-0.35) 10*3/uL PT (10.0-12.5) sec INR (<1.2) APTT (22.0-30.0) sec ABG pH (7.35-7.45) ABG pCO2 30 L (35-45) mmHg ABG pO2 >420 H >420 H >420 H (83-108) mmHg ABG HCO3 20 L (21-25) mmol/L ABG Total CO2 (19-24) mmol/L ABG O2 Saturation 98.7 H >99.4 H >99.4 H (94-97) % ABG Hematocrit 28 L 21 L 21 L (34.0-46.0) % ABG Ionized Calcium 4.1 L 4.1 L (4.5-5.3) mg/dL ABG Glucose 199 H 207 H 176 H (75-99) mg/dL ABG Lactic Acid 3.4 H* 3.0 H* 2.6 H* (0.5-1.6) mmol/L Hemoglobin 9.2 L 6.9 L* 6.7 L* (11.4-16.0) gm/dL BUN (7-17) mg/dL Creatinine (0.52-1.04) mg/dL Glucose (74-99) mg/dL POC Glucose (mg/dL) (70-110) mg/dL AST (14-36) U/L ALT (4-34) U/L Alkaline Phosphatase (38-126) U/L Total Protein (6.3-8.2) g/dL Albumin (3.5-5.0) g/dL Arterial Blood Glucose 199 H 207 H 176 H (75-99) mg/dL Crossmatch 03/25/25 03/25/25 03/25/25 Range/Units 12:45 14:01 14:05 WBC 17.95 H (4.50-10.00) 10*3/uL RBC 3.30 L (4.10-5.20) 10*6/uL Hgb 9.5 L D (12.0-15.0) g/dL Hct 28.4 L (37.2-46.3) % Plt Count 98 L D (140-440) 10*3/uL MPV (9.5-12.2) fL Immature Gran # 0.12 H (0.00-0.04) 10*3/uL Neutrophils # 14.80 H (1.80-7.70) 10*3/uL Lymphocytes # (0.90-5.00) 10*3/uL Monocytes # 1.10 H (0.20-1.00) 10*3/uL Eosinophils # 0.03 L (0.04-0.35) 10*3/uL PT (10.0-12.5) sec INR (<1.2) APTT (22.0-30.0) sec ABG pH (7.35-7.45) ABG pCO2 (35-45) mmHg ABG pO2 124 H (83-108) mmHg ABG HCO3 (21-25) mmol/L ABG Total CO2 (19-24) mmol/L ABG O2 Saturation 98.4 H (94-97) % ABG Hematocrit 27 L (34.0-46.0) % ABG Ionized Calcium 5.4 H (4.5-5.3) mg/dL ABG Glucose 160 H (75-99) mg/dL ABG Lactic Acid 3.3 H* (0.5-1.6) mmol/L Hemoglobin 8.9 L (11.4-16.0) gm/dL BUN (7-17) mg/dL Creatinine (0.52-1.04) mg/dL Glucose (74-99) mg/dL POC Glucose (mg/dL) 114 H (70-110) mg/dL AST (14-36) U/L ALT (4-34) U/L Alkaline Phosphatase (38-126) U/L Total Protein (6.3-8.2) g/dL Albumin (3.5-5.0) g/dL Arterial Blood Glucose 160 H (75-99) mg/dL Crossmatch 03/25/25 03/25/25 03/25/25 Range/Units 14:05 14:05 14:06 WBC (4.50-10.00) 10*3/uL RBC (4.10-5.20) 10*6/uL Hgb (12.0-15.0) g/dL Hct (37.2-46.3) % Plt Count (140-440) 10*3/uL MPV (9.5-12.2) fL Immature Gran # (0.00-0.04) 10*3/uL Neutrophils # (1.80-7.70) 10*3/uL Lymphocytes # (0.90-5.00) 10*3/uL Monocytes # (0.20-1.00) 10*3/uL Eosinophils # (0.04-0.35) 10*3/uL PT 15.6 H (10.0-12.5) sec INR 1.5 H (<1.2) APTT 32.0 H (22.0-30.0) sec ABG pH (7.35-7.45) ABG pCO2 (35-45) mmHg ABG pO2 (83-108) mmHg ABG HCO3 (21-25) mmol/L ABG Total CO2 (19-24) mmol/L ABG O2 Saturation (94-97) % ABG Hematocrit (34.0-46.0) % ABG Ionized Calcium (4.5-5.3) mg/dL ABG Glucose (75-99) mg/dL ABG Lactic Acid (0.5-1.6) mmol/L Hemoglobin (11.4-16.0) gm/dL BUN 22 H (7-17) mg/dL Creatinine (0.52-1.04) mg/dL Glucose 113 H (74-99) mg/dL POC Glucose (mg/dL) 130 H (70-110) mg/dL AST 116 H (14-36) U/L ALT 62 H (4-34) U/L Alkaline Phosphatase 36 L (38-126) U/L Total Protein 4.7 L (6.3-8.2) g/dL Albumin 3.2 L (3.5-5.0) g/dL Arterial Blood Glucose (75-99) mg/dL Crossmatch 03/25/25 03/25/25 03/25/25 Range/Units 14:15 15:36 16:20 WBC 11.39 H (4.50-10.00) 10*3/uL RBC 2.74 L (4.10-5.20) 10*6/uL Hgb 7.9 L D (12.0-15.0) g/dL Hct 23.5 L (37.2-46.3) % Plt Count 64 L (140-440) 10*3/uL MPV 9.4 L (9.5-12.2) fL Immature Gran # 0.07 H (0.00-0.04) 10*3/uL Neutrophils # 9.19 H (1.80-7.70) 10*3/uL Lymphocytes # (0.90-5.00) 10*3/uL Monocytes # 1.09 H (0.20-1.00) 10*3/uL Eosinophils # 0.01 L (0.04-0.35) 10*3/uL PT (10.0-12.5) sec INR (<1.2) APTT (22.0-30.0) sec ABG pH 7.33 L (7.35-7.45) ABG pCO2 (35-45) mmHg ABG pO2 359 H (83-108) mmHg ABG HCO3 (21-25) mmol/L ABG Total CO2 25 H (19-24) mmol/L ABG O2 Saturation 100.0 H (94-97) % ABG Hematocrit (34.0-46.0) % ABG Ionized Calcium (4.5-5.3) mg/dL ABG Glucose (75-99) mg/dL ABG Lactic Acid (0.5-1.6) mmol/L Hemoglobin 9.4 L (11.4-16.0) gm/dL BUN (7-17) mg/dL Creatinine (0.52-1.04) mg/dL Glucose (74-99) mg/dL POC Glucose (mg/dL) 143 H (70-110) mg/dL AST (14-36) U/L ALT (4-34) U/L Alkaline Phosphatase (38-126) U/L Total Protein (6.3-8.2) g/dL Albumin (3.5-5.0) g/dL Arterial Blood Glucose (75-99) mg/dL Crossmatch 03/25/25 03/25/25 03/25/25 Range/Units 17:04 17:18 18:39 WBC (4.50-10.00) 10*3/uL RBC (4.10-5.20) 10*6/uL Hgb (12.0-15.0) g/dL Hct (37.2-46.3) % Plt Count (140-440) 10*3/uL MPV (9.5-12.2) fL Immature Gran # (0.00-0.04) 10*3/uL Neutrophils # (1.80-7.70) 10*3/uL Lymphocytes # (0.90-5.00) 10*3/uL Monocytes # (0.20-1.00) 10*3/uL Eosinophils # (0.04-0.35) 10*3/uL PT (10.0-12.5) sec INR (<1.2) APTT (22.0-30.0) sec ABG pH 7.33 L (7.35-7.45) ABG pCO2 (35-45) mmHg ABG pO2 158 H (83-108) mmHg ABG HCO3 (21-25) mmol/L ABG Total CO2 25 H (19-24) mmol/L ABG O2 Saturation 99.7 H (94-97) % ABG Hematocrit (34.0-46.0) % ABG Ionized Calcium (4.5-5.3) mg/dL ABG Glucose (75-99) mg/dL ABG Lactic Acid (0.5-1.6) mmol/L Hemoglobin 8.3 L (11.4-16.0) gm/dL BUN (7-17) mg/dL Creatinine (0.52-1.04) mg/dL Glucose (74-99) mg/dL POC Glucose (mg/dL) 139 H 215 H (70-110) mg/dL AST (14-36) U/L ALT (4-34) U/L Alkaline Phosphatase (38-126) U/L Total Protein (6.3-8.2) g/dL Albumin (3.5-5.0) g/dL Arterial Blood Glucose (75-99) mg/dL Crossmatch 03/25/25 03/25/25 03/25/25 Range/Units 18:40 19:59 20:55 WBC 12.50 H (4.50-10.00) 10*3/uL RBC 2.97 L (4.10-5.20) 10*6/uL Hgb 8.5 L (12.0-15.0) g/dL Hct 25.7 L (37.2-46.3) % Plt Count 75 L (140-440) 10*3/uL MPV (9.5-12.2) fL Immature Gran # 0.06 H (0.00-0.04) 10*3/uL Neutrophils # 10.90 H (1.80-7.70) 10*3/uL Lymphocytes # 0.76 L (0.90-5.00) 10*3/uL Monocytes # (0.20-1.00) 10*3/uL Eosinophils # 0.00 L (0.04-0.35) 10*3/uL PT (10.0-12.5) sec INR (<1.2) APTT (22.0-30.0) sec ABG pH (7.35-7.45) ABG pCO2 (35-45) mmHg ABG pO2 (83-108) mmHg ABG HCO3 (21-25) mmol/L ABG Total CO2 (19-24) mmol/L ABG O2 Saturation (94-97) % ABG Hematocrit (34.0-46.0) % ABG Ionized Calcium (4.5-5.3) mg/dL ABG Glucose (75-99) mg/dL ABG Lactic Acid (0.5-1.6) mmol/L Hemoglobin (11.4-16.0) gm/dL BUN (7-17) mg/dL Creatinine (0.52-1.04) mg/dL Glucose (74-99) mg/dL POC Glucose (mg/dL) 207 H 187 H (70-110) mg/dL AST (14-36) U/L ALT (4-34) U/L Alkaline Phosphatase (38-126) U/L Total Protein (6.3-8.2) g/dL Albumin (3.5-5.0) g/dL Arterial Blood Glucose (75-99) mg/dL Crossmatch 03/25/25 03/25/25 03/26/25 Range/Units 21:54 23:05 00:00 WBC (4.50-10.00) 10*3/uL RBC (4.10-5.20) 10*6/uL Hgb (12.0-15.0) g/dL Hct (37.2-46.3) % Plt Count (140-440) 10*3/uL MPV (9.5-12.2) fL Immature Gran # (0.00-0.04) 10*3/uL Neutrophils # (1.80-7.70) 10*3/uL Lymphocytes # (0.90-5.00) 10*3/uL Monocytes # (0.20-1.00) 10*3/uL Eosinophils # (0.04-0.35) 10*3/uL PT (10.0-12.5) sec INR (<1.2) APTT (22.0-30.0) sec ABG pH (7.35-7.45) ABG pCO2 (35-45) mmHg ABG pO2 (83-108) mmHg ABG HCO3 (21-25) mmol/L ABG Total CO2 (19-24) mmol/L ABG O2 Saturation (94-97) % ABG Hematocrit (34.0-46.0) % ABG Ionized Calcium (4.5-5.3) mg/dL ABG Glucose (75-99) mg/dL ABG Lactic Acid (0.5-1.6) mmol/L Hemoglobin (11.4-16.0) gm/dL BUN (7-17) mg/dL Creatinine (0.52-1.04) mg/dL Glucose (74-99) mg/dL POC Glucose (mg/dL) 158 H 150 H 143 H (70-110) mg/dL AST (14-36) U/L ALT (4-34) U/L Alkaline Phosphatase (38-126) U/L Total Protein (6.3-8.2) g/dL Albumin (3.5-5.0) g/dL Arterial Blood Glucose (75-99) mg/dL Crossmatch 03/26/25 03/26/25 03/26/25 Range/Units 01:08 02:06 03:03 WBC 10.42 H (4.50-10.00) 10*3/uL RBC 2.92 L (4.10-5.20) 10*6/uL Hgb 8.4 L (12.0-15.0) g/dL Hct 25.0 L (37.2-46.3) % Plt Count 81 L (140-440) 10*3/uL MPV (9.5-12.2) fL Immature Gran # (0.00-0.04) 10*3/uL Neutrophils # 9.44 H (1.80-7.70) 10*3/uL Lymphocytes # 0.46 L (0.90-5.00) 10*3/uL Monocytes # (0.20-1.00) 10*3/uL Eosinophils # 0.00 L (0.04-0.35) 10*3/uL PT (10.0-12.5) sec INR (<1.2) APTT (22.0-30.0) sec ABG pH (7.35-7.45) ABG pCO2 (35-45) mmHg ABG pO2 (83-108) mmHg ABG HCO3 (21-25) mmol/L ABG Total CO2 (19-24) mmol/L ABG O2 Saturation (94-97) % ABG Hematocrit (34.0-46.0) % ABG Ionized Calcium (4.5-5.3) mg/dL ABG Glucose (75-99) mg/dL ABG Lactic Acid (0.5-1.6) mmol/L Hemoglobin (11.4-16.0) gm/dL BUN (7-17) mg/dL Creatinine (0.52-1.04) mg/dL Glucose (74-99) mg/dL POC Glucose (mg/dL) 144 H 153 H (70-110) mg/dL AST (14-36) U/L ALT (4-34) U/L Alkaline Phosphatase (38-126) U/L Total Protein (6.3-8.2) g/dL Albumin (3.5-5.0) g/dL Arterial Blood Glucose (75-99) mg/dL Crossmatch 03/26/25 03/26/25 03/26/25 Range/Units 03:03 03:03 04:03 WBC (4.50-10.00) 10*3/uL RBC (4.10-5.20) 10*6/uL Hgb (12.0-15.0) g/dL Hct (37.2-46.3) % Plt Count (140-440) 10*3/uL MPV (9.5-12.2) fL Immature Gran # (0.00-0.04) 10*3/uL Neutrophils # (1.80-7.70) 10*3/uL Lymphocytes # (0.90-5.00) 10*3/uL Monocytes # (0.20-1.00) 10*3/uL Eosinophils # (0.04-0.35) 10*3/uL PT (10.0-12.5) sec INR (<1.2) APTT (22.0-30.0) sec ABG pH (7.35-7.45) ABG pCO2 (35-45) mmHg ABG pO2 (83-108) mmHg ABG HCO3 (21-25) mmol/L ABG Total CO2 (19-24) mmol/L ABG O2 Saturation (94-97) % ABG Hematocrit (34.0-46.0) % ABG Ionized Calcium (4.5-5.3) mg/dL ABG Glucose (75-99) mg/dL ABG Lactic Acid (0.5-1.6) mmol/L Hemoglobin (11.4-16.0) gm/dL BUN 22 H (7-17) mg/dL Creatinine 1.13 H (0.52-1.04) mg/dL Glucose 132 H (74-99) mg/dL POC Glucose (mg/dL) 154 H 133 H (70-110) mg/dL AST 71 H (14-36) U/L ALT 41 H (4-34) U/L Alkaline Phosphatase 37 L (38-126) U/L Total Protein 5.0 L (6.3-8.2) g/dL Albumin 3.4 L (3.5-5.0) g/dL Arterial Blood Glucose (75-99) mg/dL Crossmatch 03/26/25 03/26/25 03/26/25 Range/Units 05:06 06:23 06:56 WBC (4.50-10.00) 10*3/uL RBC (4.10-5.20) 10*6/uL Hgb (12.0-15.0) g/dL Hct (37.2-46.3) % Plt Count (140-440) 10*3/uL MPV (9.5-12.2) fL Immature Gran # (0.00-0.04) 10*3/uL Neutrophils # (1.80-7.70) 10*3/uL Lymphocytes # (0.90-5.00) 10*3/uL Monocytes # (0.20-1.00) 10*3/uL Eosinophils # (0.04-0.35) 10*3/uL PT (10.0-12.5) sec INR (<1.2) APTT (22.0-30.0) sec ABG pH (7.35-7.45) ABG pCO2 (35-45) mmHg ABG pO2 (83-108) mmHg ABG HCO3 (21-25) mmol/L ABG Total CO2 (19-24) mmol/L ABG O2 Saturation (94-97) % ABG Hematocrit (34.0-46.0) % ABG Ionized Calcium (4.5-5.3) mg/dL ABG Glucose (75-99) mg/dL ABG Lactic Acid (0.5-1.6) mmol/L Hemoglobin (11.4-16.0) gm/dL BUN (7-17) mg/dL Creatinine (0.52-1.04) mg/dL Glucose (74-99) mg/dL POC Glucose (mg/dL) 121 H 120 H 113 H (70-110) mg/dL AST (14-36) U/L ALT (4-34) U/L Alkaline Phosphatase (38-126) U/L Total Protein (6.3-8.2) g/dL Albumin (3.5-5.0) g/dL Arterial Blood Glucose (75-99) mg/dL Crossmatch 03/26/25 03/26/25 03/26/25 Range/Units 08:10 09:00 11:02 WBC (4.50-10.00) 10*3/uL RBC (4.10-5.20) 10*6/uL Hgb (12.0-15.0) g/dL Hct (37.2-46.3) % Plt Count (140-440) 10*3/uL MPV (9.5-12.2) fL Immature Gran # (0.00-0.04) 10*3/uL Neutrophils # (1.80-7.70) 10*3/uL Lymphocytes # (0.90-5.00) 10*3/uL Monocytes # (0.20-1.00) 10*3/uL Eosinophils # (0.04-0.35) 10*3/uL PT (10.0-12.5) sec INR (<1.2) APTT (22.0-30.0) sec ABG pH (7.35-7.45) ABG pCO2 (35-45) mmHg ABG pO2 (83-108) mmHg ABG HCO3 (21-25) mmol/L ABG Total CO2 (19-24) mmol/L ABG O2 Saturation (94-97) % ABG Hematocrit (34.0-46.0) % ABG Ionized Calcium (4.5-5.3) mg/dL ABG Glucose (75-99) mg/dL ABG Lactic Acid (0.5-1.6) mmol/L Hemoglobin (11.4-16.0) gm/dL BUN (7-17) mg/dL Creatinine (0.52-1.04) mg/dL Glucose (74-99) mg/dL POC Glucose (mg/dL) 148 H 168 H 162 H (70-110) mg/dL AST (14-36) U/L ALT (4-34) U/L Alkaline Phosphatase (38-126) U/L Total Protein (6.3-8.2) g/dL Albumin (3.5-5.0) g/dL Arterial Blood Glucose (75-99) mg/dL Crossmatch Assessment and Plan Assessment: Postoperative day #1, S/P four-vessel CABG. Routine postoperative ventilator management, with extubation, on March 25, 2025. Multivessel coronary artery disease, with anticipated CABG, March 25, 2025. History of hypertension. History of hyperlipidemia. History of paroxysmal atrial fibrillation. History of type 2 diabetes mellitus. History of valvular heart disease, with mild tricuspid valve regurgitation, and moderate mitral valve regurgitation. Obesity, with a BMI of 38.1 kg/m. Gastroesophageal reflux disease. Mild intermittent asthma. Lifelong non-smoker. Plan: Plan dated March 24, 2025. The patient is seen today in room 369. We explained to the patient, that we hav e 2 major roles, after open heart surgery. The first role, is to get the patient extubated from mechanical ventilation. That typically occurs 4 to 6 hours after the patient leaves the operating room. I did explain that sometimes it is less, and sometimes more. Finally, after surgery, and after the patient is extubated, we see the patient on a daily basis, to ensure that the patient does not develop any pneumonia, pleural effusion, atelectasis, collapse, etc. This includes deep breathing, coughing, clearing of secretions, and hourly use of the incentive spirometer. We will continue to follow make recommendations along the way. Prognosis is thought to be good. The patient is a lifelong non- smoker. She does have history of very mild intermittent asthma. Dictation was produced using [employer] software. Please excuse any grammatical, word or spelling errors. Plan dated March 26, 2025. The patient is seen today in room 267. She is sitting in the chair next to the hospital bed. She is awake and alert. No distress. She is postoperative day #1, status post CABG, x 4 vessels. She was extubated yesterday, March 25 with excellent gases, weaning parameters. She continues on amiodarone 0.5 mg/min, and saline at 50 cc an hour. In addition, she is getting insulin drip at 6.5 units an hour. Labs, x-rays, and medications are reviewed. We will continue to follow and make recommendations along the way. Overall prognosis remains guarded. We encouraged the hourly use of the incentive spirometer. We also recommend deep breathing, coughing, and clearing of secretions. Dictation was produced using [employer] software. Please excuse any grammatical, word or spelling errors. Time with Patient: Greater than 30
[2025-03-26] MEDS: ACETAMINOPHEN TAB 325 MG TAB PO PRN (15:11)
[2025-03-26 15:17] LABS: Glucose,Whole Blood 175 mg/dL (70-110)
[2025-03-26 15:53] LABS: Glucose,Whole Blood 176 mg/dL (70-110)
--- NOTE | 2025-03-26 17:01 | P.PN ---
Subjective Progress Note Date: 03/26/25 HISTORY OF PRESENTING ILLNESS: 77-year-old follows up with Dr. Cavanaugh. History of hypertension dyslipidemia paroxysmal atrial fibrillation anticoagulation with Xarelto. Type 2 diabetes. As an outpatient because of symptoms of palpitations and nonspecific symptoms of decreased exercise capacity increased fatigue shortness of breath she had a stress test done which was abnormal showing large reversible perfusion defect in inferior and inferoapical segments.. For this she underwent cardiac catheteriz ation which showed 50 to 60% distal left main, 95% LAD after first septal takeoff, second annular branch had 50 to 60% ostial stenosis, 70% stenosis in proximal LCx, 99% stenosis in ostium of RCA. Due to multivessel disease, CT surgery team was requested to evaluate the patient for possible CABG . At the time of evaluation she is comfortable denies any active chest pain chest pressure shortness of breath. Right radial site appears intact with no signs of hematoma or bleeding, intact radial pulse. Labs and vitals were essentially within acceptable range ..................................... ................................................................................ ......................... [facility] Vitals: 145/80, heart rate 59 [facility] Labs: Hb 12.5, BUN 32, creatinine 1.6, repeat creatinine 1.4, A1c of 6.5, LDL 31, HDL 53, TG G212, TSH 2.6 ....................................... ................................................................................ ....................... Prior cardiac testing: Echo EF 55%, mild concentric LVH, aortic sclerosis, mild to moderate mitral regurgitation, cardiac catheterization showed 50 to 60% distal left main, 95% LAD after first s eptal takeoff, second annular branch had 50 to 60% ostial stenosis, 70% stenosis in proximal LCx, 99% stenosis in ostium of RCA ........................................................................ ...................................................................... Progress note 03/25/2025 Seen and examined at bedside. She will go for open heart surgery today. Hemodynamically stable. 03/26/2025 Seen and examined at bedside. Yesterday night she was extubated. This morning she is on 4 L, saturating in the high 90s, 500 mL on incentive spirometer Labile blood pressure, [place] right art line, mediastinal and left pleural chest tubes are in place. Ambulated in the room with physical therapy. ................................................................................ .............................................................. PHYSICAL EXAMINATION: Neck: Brisk carotid upstroke, no jugular venous distention. Lungs: Mild crackles audible. Diminished air entry, poor inspiratory effort, chest tube in place with excellent tube in place. Heart: Regular rate and rhythm, S1-S2, no significant murmur Abdomen: Soft nontender, positive bowel sounds. Extremities: No edema, intact distal pulses. Neuro: Alert, oritented, no focal deficits. Detailed neuro exam was not performed. . ................................................................................ ............................................................. 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 Objective - Vital Signs Vital signs: Vital Signs Temp 97.9 F 03/26/25 16:00 Pulse 73 03/26/25 16:13 Resp 18 03/26/25 16:00 BP 126/59 03/26/25 16:00 Pulse Ox 99 03/26/25 16:00 FiO2 40 03/25/25 16:38 Intake & Output 03/25/25 03/26/25 03/26/25 18:59 06:59 18:59 Intake Total 1627.703 650.582 3928.871 Output Total 1224 837 305 Balance 403.703 24.867 706.871 Weight 106.9 kg 106.9 kg Intake: IV 1008 818 376 ACETAMINOPHEN IV (For NPO 100 ) 1,000 mg In Empty Bag 1 bag @ 400 mls/hr IVPB Q6HR [facility] Rx#:[id number] Albumin Human 5% 500 ml 500 In Empty Bag 1 bag @ 250 mls/hr IVPB ONCE ONE Rx#: [id number] CO/CI 80 Invasive Line 1 10 30 30 Magnesium Sulfate-D5w Pmx 100 1 gm In Dextrose/Water 1 100ml.bag @ 100 mls/hr IVPB ONCE ONE Rx#: [id number] Pressure Bag 45 108 66 Sodium Chloride 0.9% 1, 200 600 230 000 ml @ 20 mls/hr IV . Q24H [facility] Rx#:[id number] ceFAZolin 2 gm In Sodium 50 50 Chloride 0.9% 50 ml @ 100 mls/hr IVPB ONCE ONE Rx# :[id number] Intake, IV Titration 32.703 43.867 285.871 Amount Amiodarone 450 mg In 250 Dextrose 5% in Water 250 ml @ 0.5 MG/MIN 16.667 mls/hr IV .Q15H PRN Rx#: [id number] Insulin Regular 100 unit 0.909 43.867 35.871 In Sodium Chloride 0.9% 100 ml @ Per Protocol IV .Q0M [facility] Rx#:[id number] Norepinephrine 8 mg In 20.117 Sodium Chloride 0.9% 250 ml @ 0.03 MCG/KG/MIN 5. 793 mls/hr IV .Q24H [facility] Rx#:[id number] propofoL 1,000 mg In 11.677 Empty Bag 1 bag @ Titrate IV .Q0M [facility] Rx#: [id number] Oral 350 Blood Product 587 Pheresis As-3 Unit 311 [id number] Rc Pheresis As-3 Unit 276 [id number] Output: Chest Tube Drainage 159 387 80 Left Pleural Chest Tube 60 242 80 Mediastinal Chest Tube 99 145 0 Drainage 60 10 Left leg ERICKA 60 10 Urine 655 450 215 Estimated Blood Loss 350 Other: Voiding Method Indwelling Catheter Indwelling Catheter Indwelling Catheter ABP, PAP, CO, CI - Last Documented Arterial Blood Pressure 116/36 Pulmonary Artery Pressure 39/13 Cardiac Output 4.2 Cardiac Index 2.1 - Labs CBC & Chem 7: 03/26/25 03:03 03/26/25 03:03 Labs: Abnormal Lab Results - Last 24 Hours (Table) 03/25/25 03/25/25 03/25/25 Range/Units 11:15 11:45 14:15 WBC (4.50-10.00) 10*3/uL RBC (4.10-5.20) 10*6/uL Hgb (12.0-15.0) g/dL Hct (37.2-46.3) % Plt Count (140-440) 10*3/uL Immature Gran # (0.00-0.04) 10*3/uL Neutrophils # (1.80-7.70) 10*3/uL Lymphocytes # (0.90-5.00) 10*3/uL Monocytes # (0.20-1.00) 10*3/uL Eosinophils # (0.04-0.35) 10*3/uL ABG pH 7.33 L (7.35-7.45) ABG pO2 359 H (83-108) mmHg ABG Total CO2 25 H (19-24) mmol/L ABG O2 Saturation 100.0 H (94-97) % ABG Lactic Acid 3.0 H* 2.6 H* (0.5-1.6) mmol/L Hemoglobin 9.4 L (11.4-16.0) gm/dL BUN (7-17) mg/dL Creatinine (0.52-1.04) mg/dL Glucose (74-99) mg/dL POC Glucose (mg/dL) (70-110) mg/dL AST (14-36) U/L ALT (4-34) U/L Alkaline Phosphatase (38-126) U/L Total Protein (6.3-8.2) g/dL Albumin (3.5-5.0) g/dL 03/25/25 03/25/25 03/25/25 Range/Units 15:36 17:04 17:18 WBC (4.50-10.00) 10*3/uL RBC (4.10-5.20) 10*6/uL Hgb (12.0-15.0) g/dL Hct (37.2-46.3) % Plt Count 64 L (140-440) 10*3/uL Immature Gran # (0.00-0.04) 10*3/uL Neutrophils # 9.19 H (1.80-7.70) 10*3/uL Lymphocytes # (0.90-5.00) 10*3/uL Monocytes # 1.09 H (0.20-1.00) 10*3/uL Eosinophils # 0.01 L (0.04-0.35) 10*3/uL ABG pH 7.33 L (7.35-7.45) ABG pO2 158 H (83-108) mmHg ABG Total CO2 25 H (19-24) mmol/L ABG O2 Saturation 99.7 H (94-97) % ABG Lactic Acid (0.5-1.6) mmol/L Hemoglobin 8.3 L (11.4-16.0) gm/dL BUN (7-17) mg/dL Creatinine (0.52-1.04) mg/dL Glucose (74-99) mg/dL POC Glucose (mg/dL) 139 H (70-110) mg/dL AST (14-36) U/L ALT (4-34) U/L Alkaline Phosphatase (38-126) U/L Total Protein (6.3-8.2) g/dL Albumin (3.5-5.0) g/dL 03/25/25 03/25/25 03/25/25 Range/Units 18:39 18:40 19:59 WBC 12.50 H (4.50-10.00) 10*3/uL RBC 2.97 L (4.10-5.20) 10*6/uL Hgb 8.5 L (12.0-15.0) g/dL Hct 25.7 L (37.2-46.3) % Plt Count 75 L (140-440) 10*3/uL Immature Gran # 0.06 H (0.00-0.04) 10*3/uL Neutrophils # 10.90 H (1.80-7.70) 10*3/uL Lymphocytes # 0.76 L (0.90-5.00) 10*3/uL Monocytes # (0.20-1.00) 10*3/uL Eosinophils # 0.00 L (0.04-0.35) 10*3/uL ABG pH (7.35-7.45) ABG pO2 (83-108) mmHg ABG Total CO2 (19-24) mmol/L ABG O2 Saturation (94-97) % ABG Lactic Acid (0.5-1.6) mmol/L Hemoglobin (11.4-16.0) gm/dL BUN (7-17) mg/dL Creatinine (0.52-1.04) mg/dL Glucose (74-99) mg/dL POC Glucose (mg/dL) 215 H 207 H (70-110) mg/dL AST (14-36) U/L ALT (4-34) U/L Alkaline Phosphatase (38-126) U/L Total Protein (6.3-8.2) g/dL Albumin (3.5-5.0) g/dL 03/25/25 03/25/25 03/25/25 Range/Units 20:55 21:54 23:05 WBC (4.50-10.00) 10*3/uL RBC (4.10-5.20) 10*6/uL Hgb (12.0-15.0) g/dL Hct (37.2-46.3) % Plt Count (140-440) 10*3/uL Immature Gran # (0.00-0.04) 10*3/uL Neutrophils # (1.80-7.70) 10*3/uL Lymphocytes # (0.90-5.00) 10*3/uL Monocytes # (0.20-1.00) 10*3/uL Eosinophils # (0.04-0.35) 10*3/uL ABG pH (7.35-7.45) ABG pO2 (83-108) mmHg ABG Total CO2 (19-24) mmol/L ABG O2 Saturation (94-97) % ABG Lactic Acid (0.5-1.6) mmol/L Hemoglobin (11.4-16.0) gm/dL BUN (7-17) mg/dL Creatinine (0.52-1.04) mg/dL Glucose (74-99) mg/dL POC Glucose (mg/dL) 187 H 158 H 150 H (70-110) mg/dL AST (14-36) U/L ALT (4-34) U/L Alkaline Phosphatase (38-126) U/L Total Protein (6.3-8.2) g/dL Albumin (3.5-5.0) g/dL 03/26/25 03/26/25 03/26/25 Range/Units 00:00 01:08 02:06 WBC (4.50-10.00) 10*3/uL RBC (4.10-5.20) 10*6/uL Hgb (12.0-15.0) g/dL Hct (37.2-46.3) % Plt Count (140-440) 10*3/uL Immature Gran # (0.00-0.04) 10*3/uL Neutrophils # (1.80-7.70) 10*3/uL Lymphocytes # (0.90-5.00) 10*3/uL Monocytes # (0.20-1.00) 10*3/uL Eosinophils # (0.04-0.35) 10*3/uL ABG pH (7.35-7.45) ABG pO2 (83-108) mmHg ABG Total CO2 (19-24) mmol/L ABG O2 Saturation (94-97) % ABG Lactic Acid (0.5-1.6) mmol/L Hemoglobin (11.4-16.0) gm/dL BUN (7-17) mg/dL Creatinine (0.52-1.04) mg/dL Glucose (74-99) mg/dL POC Glucose (mg/dL) 143 H 144 H 153 H (70-110) mg/dL AST (14-36) U/L ALT (4-34) U/L Alkaline Phosphatase (38-126) U/L Total Protein (6.3-8.2) g/dL Albumin (3.5-5.0) g/dL 03/26/25 03/26/25 03/26/25 Range/Units 03:03 03:03 03:03 WBC 10.42 H (4.50-10.00) 10*3/uL RBC 2.92 L (4.10-5.20) 10*6/uL Hgb 8.4 L (12.0-15.0) g/dL Hct 25.0 L (37.2-46.3) % Plt Count 81 L (140-440) 10*3/uL Immature Gran # (0.00-0.04) 10*3/uL Neutrophils # 9.44 H (1.80-7.70) 10*3/uL Lymphocytes # 0.46 L (0.90-5.00) 10*3/uL Monocytes # (0.20-1.00) 10*3/uL Eosinophils # 0.00 L (0.04-0.35) 10*3/uL ABG pH (7.35-7.45) ABG pO2 (83-108) mmHg ABG Total CO2 (19-24) mmol/L ABG O2 Saturation (94-97) % ABG Lactic Acid (0.5-1.6) mmol/L Hemoglobin (11.4-16.0) gm/dL BUN 22 H (7-17) mg/dL Creatinine 1.13 H (0.52-1.04) mg/dL Glucose 132 H (74-99) mg/dL POC Glucose (mg/dL) 154 H (70-110) mg/dL AST 71 H (14-36) U/L ALT 41 H (4-34) U/L Alkaline Phosphatase 37 L (38-126) U/L Total Protein 5.0 L (6.3-8.2) g/dL Albumin 3.4 L (3.5-5.0) g/dL 03/26/25 03/26/25 03/26/25 Range/Units 04:03 05:06 06:23 WBC (4.50-10.00) 10*3/uL RBC (4.10-5.20) 10*6/uL Hgb (12.0-15.0) g/dL Hct (37.2-46.3) % Plt Count (140-440) 10*3/uL Immature Gran # (0.00-0.04) 10*3/uL Neutrophils # (1.80-7.70) 10*3/uL Lymphocytes # (0.90-5.00) 10*3/uL Monocytes # (0.20-1.00) 10*3/uL Eosinophils # (0.04-0.35) 10*3/uL ABG pH (7.35-7.45) ABG pO2 (83-108) mmHg ABG Total CO2 (19-24) mmol/L ABG O2 Saturation (94-97) % ABG Lactic Acid (0.5-1.6) mmol/L Hemoglobin (11.4-16.0) gm/dL BUN (7-17) mg/dL Creatinine (0.52-1.04) mg/dL Glucose (74-99) mg/dL POC Glucose (mg/dL) 133 H 121 H 120 H (70-110) mg/dL AST (14-36) U/L ALT (4-34) U/L Alkaline Phosphatase (38-126) U/L Total Protein (6.3-8.2) g/dL Albumin (3.5-5.0) g/dL 03/26/25 03/26/25 03/26/25 Range/Units 06:56 08:10 09:00 WBC (4.50-10.00) 10*3/uL RBC (4.10-5.20) 10*6/uL Hgb (12.0-15.0) g/dL Hct (37.2-46.3) % Plt Count (140-440) 10*3/uL Immature Gran # (0.00-0.04) 10*3/uL Neutrophils # (1.80-7.70) 10*3/uL Lymphocytes # (0.90-5.00) 10*3/uL Monocytes # (0.20-1.00) 10*3/uL Eosinophils # (0.04-0.35) 10*3/uL ABG pH (7.35-7.45) ABG pO2 (83-108) mmHg ABG Total CO2 (19-24) mmol/L ABG O2 Saturation (94-97) % ABG Lactic Acid (0.5-1.6) mmol/L Hemoglobin (11.4-16.0) gm/dL BUN (7-17) mg/dL Creatinine (0.52-1.04) mg/dL Glucose (74-99) mg/dL POC Glucose (mg/dL) 113 H 148 H 168 H (70-110) mg/dL AST (14-36) U/L ALT (4-34) U/L Alkaline Phosphatase (38-126) U/L Total Protein (6.3-8.2) g/dL Albumin (3.5-5.0) g/dL 03/26/25 03/26/25 03/26/25 Range/Units 11:02 15:15 15:52 WBC (4.50-10.00) 10*3/uL RBC (4.10-5.20) 10*6/uL Hgb (12.0-15.0) g/dL Hct (37.2-46.3) % Plt Count (140-440) 10*3/uL Immature Gran # (0.00-0.04) 10*3/uL Neutrophils # (1.80-7.70) 10*3/uL Lymphocytes # (0.90-5.00) 10*3/uL Monocytes # (0.20-1.00) 10*3/uL Eosinophils # (0.04-0.35) 10*3/uL ABG pH (7.35-7.45) ABG pO2 (83-108) mmHg ABG Total CO2 (19-24) mmol/L ABG O2 Saturation (94-97) % ABG Lactic Acid (0.5-1.6) mmol/L Hemoglobin (11.4-16.0) gm/dL BUN (7-17) mg/dL Creatinine (0.52-1.04) mg/dL Glucose (74-99) mg/dL POC Glucose (mg/dL) 162 H 175 H 176 H (70-110) mg/dL AST (14-36) U/L ALT (4-34) U/L Alkaline Phosphatase (38-126) U/L Total Protein (6.3-8.2) g/dL Albumin (3.5-5.0) g/dL
[2025-03-26] MEDS: ASCORBIC ACID 500 MG TAB PO SCH (17:07)
[2025-03-26] MEDS: FERROUS SULFATE 325 MG TAB PO SCH (17:07)
[2025-03-26 17:13] LABS: Glucose,Whole Blood 137 mg/dL (70-110)
[2025-03-26 18:05] LABS: Glucose,Whole Blood 168 mg/dL (70-110)
--- NOTE | 2025-03-26 18:46 | P.PN ---
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 Cavanaugh and underwent cardiac catheterization this morning as she has been having increasing weakness with shortness of breath and intermittent nausea with intermittent chest pain. Cardiac catheterization revealed calcified coronary arteries, significant disease in the distal left main, severe disease in the ostium of the RCA and proximal LAD, and moderate severe disease in the proximal left circumflex. Cardiology consulted CT surgery for evaluation of possible coronary artery bypass grafting. Patient is being admitted to medicine with CT surgery on consult as well as cardiology. Patient follows with Dr. Deluca in the outpatient setting with a past medical history of atrial fibrillation, asthma, diabetes mellitus, GERD, hyperlipidemia, hypertension, IBS, obesity. Patient rarely drinks, denies any smoking and denies illicit drug use. Patient was recently hospitalized over at [facility] in December of this year and was noted to have new onset atrial fibrillation. Patient reports since then she has been having some increasing shortness of breath and finding it difficult to perform activities that has been progressively getting worse over the last few weeks. CT surgery following and patient is being initiated on CABG workup protocol. Will add Accu-Cheks AC and at bedtime along with insulin regimen for now and we will follow-up on repeat labs in the a.m. 03/24/2025 Patient is seen in follow-up today with no acute overnight issues noted. Patient currently undergoing further workup with CT surgery and tentatively scheduled for CABG with Dr. Ellis patient is afebrile no reports of chest pain or shortness of breath. Patient has been tolerating diet and will be n.p.o. at midnight. Continue monitoring blood sugars closely and will continue current insulin regimen. The bedside and encouraged patient to continue using at least 10 times every hour while awake. 03/25/2025 Patient is evaluated in follow-up earlier this morning and is in the OR scheduled to undergo CABG and will await official CT surgery report. 03/26/2025 Patient seen in follow-up status post assisted CABG x 4 with MONTEMAYOR to LAD, currently sitting up in the chair on 4 L with extubated successfully postsurgical yesterday afternoon and tolerating well. Heart hugger is noted and multiple chest tubes along with Fulshear's catheter, continued indwelling John catheter and not currently on any pressor support. Patient is on amiodarone and cardiology is following as well. Encouraged incentive spirometer at least 10 times every hour while awake and continued PT/OT therapy. Patient is maintained on insulin drip and will continue as patient does not have much of an appetite with some nausea and not eating much as of yet. White count is 10.42 today, hemoglobin is 8.4, platelets 81, sodium 139, potassium 4.3, BUN 22, creatinine 1.13, liver functions remain elevated Today although trending down nicely. Review of systems: Constitutional: reports of fatigue, no fever, or chills Cardiovascular: No reports of chest pain or palpitations, reports chest wall pain Respiratory: reports of shortness of breath and pain with deep inspiration GI: No reports of nausea, vomiting, or diarrhea, reports not much of an appetite : No reports of dysuria or retention, currently has indwelling John catheter Neurovascular: reports of significant weakness All medications have been reviewed PHYSICAL EXAMINATION: GENERAL: The patient is lethargic although easily arousable, in alert and oriented x3, not in any acute distress. Well developed, elderly appearing, morbidly obese, sitting up in the chair HEENT: Pupils are round and equally reacting to light. EOMI. No scleral icterus. No conjunctival pallor. Normocephalic, atraumatic. No pharyngeal erythema. No thyromegaly. CARDIOVASCULAR: S1 and S2 muffled, irregular A-fib on the monitor PULMONARY: Very diminished breath sounds bilaterally otherwise chest is clear to auscultation, no wheezing or crackles. Weak inspiration, heart hugger noted ABDOMEN: Soft, obese, nontender, nondistended, normoactive bowel sounds. No palpable organomegaly. MUSCULOSKELETAL: No joint swelling or deformity. EXTREMITIES: No cyanosis, clubbing, or pedal edema. Mild edema noted of the upper and lower extremities, lower EXTR chronic NEUROLOGICAL: Gross neurological examination did not reveal any focal deficits. Diffusely weak SKIN: No rashes. Assessment: Status postcardiac catheterization 03/23/2025 revealing triple-vessel disease with significant disease of the distal left main, ostium of the RCA and proximal LAD, as well as proximal left circumflex, status post CABG 03/25/2025. With CT surgery History of atrial fibrillation, new onset in December 2024 History of asthma, not in exacerbation Diabetes mellitus, type II GERD Sebaceous cyst under left breast, present on admission with no signs of cellulitis or infection Hyperlipidemia Hypertension Obesity with a BMI of 38.1 History of previous IBS, resolved GI prophylaxis DVT prophylaxis Full code Plan: Patient is currently in the ICU status post CABG with MONTEMAYOR to the LAD, currently sitting up in the chair Encourage incentive spirometer use at least 10 times every hour while awake Recommend continued PT/OT therapy per protocol Continue on insulin drip and monitor sugars and will transition to sliding scale and long-acting as needed once patient is tolerating more diet Continue with chest tubes and follow-up chest x-ray in a.m. Monitor hemoglobin closely along with platelets and transfuse if needed We will continue to follow with CT surgery during hospitalization. The impression and plan of care has been dictated by Billie Padilla, Nurse Practitioner as directed. Dr. Jazmyne MD I have performed a history and examination and MDM of this patient, discussed the same with the dictator, and agree with the dictator's assessment and plan as written ,documented as a scribe. Based on total visit time, I have performed more than 50% of the visit. Objective - Vital Signs Vital signs: Vital Signs Temp 97.9 F 03/26/25 04:00 Pulse 85 03/26/25 04:00 Resp 24 03/26/25 04:00 BP 108/54 03/26/25 04:00 Pulse Ox 100 03/26/25 04:00 FiO2 40 03/25/25 16:38 Intake & Output 03/25/25 03/25/25 03/26/25 06:59 18:59 06:59 Intake Total 1100 1627.703 659.480 Output Total 1224 582 Balance 1100 403.703 77.480 Weight 99.8 kg Intake: IV 140 1008 621 ACETAMINOPHEN IV (For NPO 100 ) 1,000 mg In Empty Bag 1 bag @ 400 mls/hr IVPB Q6HR [facility] Rx#:[id number] Albumin Human 5% 500 ml 500 In Empty Bag 1 bag @ 250 mls/hr IVPB ONCE ONE Rx#: [id number] CO/CI 60 Invasive Line 1 20 10 30 Invasive Line 2 20 Magnesium Sulfate-D5w Pmx 100 1 gm In Dextrose/Water 1 100ml.bag @ 100 mls/hr IVPB ONCE ONE Rx#: [id number] Pressure Bag 45 81 Sodium Chloride 0.9% 1, 200 450 000 ml @ 50 mls/hr IV . Q20H [facility] Rx#:[id number] ceFAZolin 2 gm In Sodium 50 Chloride 0.9% 50 ml @ 100 mls/hr IVPB ONCE ONE Rx# :[id number] Intake, IV Titration 32.703 38.480 Amount Insulin Regular 100 unit 0.909 38.480 In Sodium Chloride 0.9% 100 ml @ Per Protocol IV .Q0M [facility] Rx#:[id number] Norepinephrine 8 mg In 20.117 Sodium Chloride 0.9% 250 ml @ 0.03 MCG/KG/MIN 5. 793 mls/hr IV .Q24H [facility] Rx#:[id number] propofoL 1,000 mg In 11.677 Empty Bag 1 bag @ Titrate IV .Q0M [facility] Rx#: [id number] Oral 960 Blood Product 587 Rc Pheresis As-3 Unit 311 [id number] Rc Pheresis As-3 Unit 276 [id number] Output: Chest Tube Drainage 159 237 Left Pleural Chest Tube 60 142 Mediastinal Chest Tube 99 95 Drainage 60 Left leg ERICKA 60 Urine 655 345 Estimated Blood Loss 350 Other: Voiding Method Toilet Indwelling Catheter Indwelling Catheter # Voids 2 ABP, PAP, CO, CI - Last Documented Arterial Blood Pressure 125/43 Pulmonary Artery Pressure 38/18 Cardiac Output 4.2 Cardiac Index 2.1 - Labs CBC & Chem 7: 03/26/25 03:03 03/26/25 03:03 Labs: Abnormal Lab Results - Last 24 Hours (Table) 03/24/25 03/25/25 03/25/25 Range/Units 06:33 05:45 08:43 WBC (4.50-10.00) 10*3/uL RBC (4.10-5.20) 10*6/uL Hgb (12.0-15.0) g/dL Hct (37.2-46.3) % Plt Count (140-440) 10*3/uL MPV (9.5-12.2) fL Immature Gran # (0.00-0.04) 10*3/uL Neutrophils # (1.80-7.70) 10*3/uL Lymphocytes # (0.90-5.00) 10*3/uL Monocytes # (0.20-1.00) 10*3/uL Eosinophils # (0.04-0.35) 10*3/uL PT (10.0-12.5) sec INR (<1.2) APTT (22.0-30.0) sec ABG pH (7.35-7.45) ABG pCO2 (35-45) mmHg ABG pO2 322 H (83-108) mmHg ABG HCO3 (21-25) mmol/L ABG Total CO2 (19-24) mmol/L ABG O2 Saturation >99.4 H (94-97) % ABG Hematocrit 32 L (34.0-46.0) % ABG Ionized Calcium (4.5-5.3) mg/dL ABG Glucose 143 H (75-99) mg/dL ABG Lactic Acid (0.5-1.6) mmol/L Hemoglobin 10.6 L (11.4-16.0) gm/dL BUN (7-17) mg/dL Creatinine (0.52-1.04) mg/dL Glucose (74-99) mg/dL POC Glucose (mg/dL) 145 H (70-110) mg/dL AST (14-36) U/L ALT (4-34) U/L Alkaline Phosphatase (38-126) U/L Total Protein (6.3-8.2) g/dL Albumin (3.5-5.0) g/dL Arterial Blood Glucose 143 H (75-99) mg/dL Crossmatch See Detail 03/25/25 03/25/25 03/25/25 Range/Units 10:10 10:45 11:15 WBC (4.50-10.00) 10*3/uL RBC (4.10-5.20) 10*6/uL Hgb (12.0-15.0) g/dL Hct (37.2-46.3) % Plt Count (140-440) 10*3/uL MPV (9.5-12.2) fL Immature Gran # (0.00-0.04) 10*3/uL Neutrophils # (1.80-7.70) 10*3/uL Lymphocytes # (0.90-5.00) 10*3/uL Monocytes # (0.20-1.00) 10*3/uL Eosinophils # (0.04-0.35) 10*3/uL PT (10.0-12.5) sec INR (<1.2) APTT (22.0-30.0) sec ABG pH (7.35-7.45) ABG pCO2 30 L (35-45) mmHg ABG pO2 267 H >420 H >420 H (83-108) mmHg ABG HCO3 20 L (21-25) mmol/L ABG Total CO2 (19-24) mmol/L ABG O2 Saturation >99.4 H 98.7 H >99.4 H (94-97) % ABG Hematocrit 27 L 28 L 21 L (34.0-46.0) % ABG Ionized Calcium 4.1 L 4.1 L (4.5-5.3) mg/dL ABG Glucose 153 H 199 H 207 H (75-99) mg/dL ABG Lactic Acid 3.4 H* 3.0 H* (0.5-1.6) mmol/L Hemoglobin 8.7 L 9.2 L 6.9 L* (11.4-16.0) gm/dL BUN (7-17) mg/dL Creatinine (0.52-1.04) mg/dL Glucose (74-99) mg/dL POC Glucose (mg/dL) (70-110) mg/dL AST (14-36) U/L ALT (4-34) U/L Alkaline Phosphatase (38-126) U/L Total Protein (6.3-8.2) g/dL Albumin (3.5-5.0) g/dL Arterial Blood Glucose 153 H 199 H 207 H (75-99) mg/dL Crossmatch 03/25/25 03/25/25 03/25/25 Range/Units 11:45 12:45 14:01 WBC (4.50-10.00) 10*3/uL RBC (4.10-5.20) 10*6/uL Hgb (12.0-15.0) g/dL Hct (37.2-46.3) % Plt Count (140-440) 10*3/uL MPV (9.5-12.2) fL Immature Gran # (0.00-0.04) 10*3/uL Neutrophils # (1.80-7.70) 10*3/uL Lymphocytes # (0.90-5.00) 10*3/uL Monocytes # (0.20-1.00) 10*3/uL Eosinophils # (0.04-0.35) 10*3/uL PT (10.0-12.5) sec INR (<1.2) APTT (22.0-30.0) sec ABG pH (7.35-7.45) ABG pCO2 (35-45) mmHg ABG pO2 >420 H 124 H (83-108) mmHg ABG HCO3 (21-25) mmol/L ABG Total CO2 (19-24) mmol/L ABG O2 Saturation >99.4 H 98.4 H (94-97) % ABG Hematocrit 21 L 27 L (34.0-46.0) % ABG Ionized Calcium 5.4 H (4.5-5.3) mg/dL ABG Glucose 176 H 160 H (75-99) mg/dL ABG Lactic Acid 2.6 H* 3.3 H* (0.5-1.6) mmol/L Hemoglobin 6.7 L* 8.9 L (11.4-16.0) gm/dL BUN (7-17) mg/dL Creatinine (0.52-1.04) mg/dL Glucose (74-99) mg/dL POC Glucose (mg/dL) 114 H (70-110) mg/dL AST (14-36) U/L ALT (4-34) U/L Alkaline Phosphatase (38-126) U/L Total Protein (6.3-8.2) g/dL Albumin (3.5-5.0) g/dL Arterial Blood Glucose 176 H 160 H (75-99) mg/dL Crossmatch 03/25/25 03/25/25 03/25/25 Range/Units 14:05 14:05 14:05 WBC 17.95 H (4.50-10.00) 10*3/uL RBC 3.30 L (4.10-5.20) 10*6/uL Hgb 9.5 L D (12.0-15.0) g/dL Hct 28.4 L (37.2-46.3) % Plt Count 98 L D (140-440) 10*3/uL MPV (9.5-12.2) fL Immature Gran # 0.12 H (0.00-0.04) 10*3/uL Neutrophils # 14.80 H (1.80-7.70) 10*3/uL Lymphocytes # (0.90-5.00) 10*3/uL Monocytes # 1.10 H (0.20-1.00) 10*3/uL Eosinophils # 0.03 L (0.04-0.35) 10*3/uL PT 15.6 H (10.0-12.5) sec INR 1.5 H (<1.2) APTT 32.0 H (22.0-30.0) sec ABG pH (7.35-7.45) ABG pCO2 (35-45) mmHg ABG pO2 (83-108) mmHg ABG HCO3 (21-25) mmol/L ABG Total CO2 (19-24) mmol/L ABG O2 Saturation (94-97) % ABG Hematocrit (34.0-46.0) % ABG Ionized Calcium (4.5-5.3) mg/dL ABG Glucose (75-99) mg/dL ABG Lactic Acid (0.5-1.6) mmol/L Hemoglobin (11.4-16.0) gm/dL BUN 22 H (7-17) mg/dL Creatinine (0.52-1.04) mg/dL Glucose 113 H (74-99) mg/dL POC Glucose (mg/dL) (70-110) mg/dL AST 116 H (14-36) U/L ALT 62 H (4-34) U/L Alkaline Phosphatase 36 L (38-126) U/L Total Protein 4.7 L (6.3-8.2) g/dL Albumin 3.2 L (3.5-5.0) g/dL Arterial Blood Glucose (75-99) mg/dL Crossmatch 03/25/25 03/25/25 03/25/25 Range/Units 14:06 14:15 15:36 WBC 11.39 H (4.50-10.00) 10*3/uL RBC 2.74 L (4.10-5.20) 10*6/uL Hgb 7.9 L D (12.0-15.0) g/dL Hct 23.5 L (37.2-46.3) % Plt Count 64 L (140-440) 10*3/uL MPV 9.4 L (9.5-12.2) fL Immature Gran # 0.07 H (0.00-0.04) 10*3/uL Neutrophils # 9.19 H (1.80-7.70) 10*3/uL Lymphocytes # (0.90-5.00) 10*3/uL Monocytes # 1.09 H (0.20-1.00) 10*3/uL Eosinophils # 0.01 L (0.04-0.35) 10*3/uL PT (10.0-12.5) sec INR (<1.2) APTT (22.0-30.0) sec ABG pH 7.33 L (7.35-7.45) ABG pCO2 (35-45) mmHg ABG pO2 359 H (83-108) mmHg ABG HCO3 (21-25) mmol/L ABG Total CO2 25 H (19-24) mmol/L ABG O2 Saturation 100.0 H (94-97) % ABG Hematocrit (34.0-46.0) % ABG Ionized Calcium (4.5-5.3) mg/dL ABG Glucose (75-99) mg/dL ABG Lactic Acid (0.5-1.6) mmol/L Hemoglobin 9.4 L (11.4-16.0) gm/dL BUN (7-17) mg/dL Creatinine (0.52-1.04) mg/dL Glucose (74-99) mg/dL POC Glucose (mg/dL) 130 H (70-110) mg/dL AST (14-36) U/L ALT (4-34) U/L Alkaline Phosphatase (38-126) U/L Total Protein (6.3-8.2) g/dL Albumin (3.5-5.0) g/dL Arterial Blood Glucose (75-99) mg/dL Crossmatch 03/25/25 03/25/25 03/25/25 Range/Units 16:20 17:04 17:18 WBC (4.50-10.00) 10*3/uL RBC (4.10-5.20) 10*6/uL Hgb (12.0-15.0) g/dL Hct (37.2-46.3) % Plt Count (140-440) 10*3/uL MPV (9.5-12.2) fL Immature Gran # (0.00-0.04) 10*3/uL Neutrophils # (1.80-7.70) 10*3/uL Lymphocytes # (0.90-5.00) 10*3/uL Monocytes # (0.20-1.00) 10*3/uL Eosinophils # (0.04-0.35) 10*3/uL PT (10.0-12.5) sec INR (<1.2) APTT (22.0-30.0) sec ABG pH 7.33 L (7.35-7.45) ABG pCO2 (35-45) mmHg ABG pO2 158 H (83-108) mmHg ABG HCO3 (21-25) mmol/L ABG Total CO2 25 H (19-24) mmol/L ABG O2 Saturation 99.7 H (94-97) % ABG Hematocrit (34.0-46.0) % ABG Ionized Calcium (4.5-5.3) mg/dL ABG Glucose (75-99) mg/dL ABG Lactic Acid (0.5-1.6) mmol/L Hemoglobin 8.3 L (11.4-16.0) gm/dL BUN (7-17) mg/dL Creatinine (0.52-1.04) mg/dL Glucose (74-99) mg/dL POC Glucose (mg/dL) 143 H 139 H (70-110) mg/dL AST (14-36) U/L ALT (4-34) U/L Alkaline Phosphatase (38-126) U/L Total Protein (6.3-8.2) g/dL Albumin (3.5-5.0) g/dL Arterial Blood Glucose (75-99) mg/dL Crossmatch 03/25/25 03/25/25 03/25/25 Range/Units 18:39 18:40 19:59 WBC 12.50 H (4.50-10.00) 10*3/uL RBC 2.97 L (4.10-5.20) 10*6/uL Hgb 8.5 L (12.0-15.0) g/dL Hct 25.7 L (37.2-46.3) % Plt Count 75 L (140-440) 10*3/uL MPV (9.5-12.2) fL Immature Gran # 0.06 H (0.00-0.04) 10*3/uL Neutrophils # 10.90 H (1.80-7.70) 10*3/uL Lymphocytes # 0.76 L (0.90-5.00) 10*3/uL Monocytes # (0.20-1.00) 10*3/uL Eosinophils # 0.00 L (0.04-0.35) 10*3/uL PT (10.0-12.5) sec INR (<1.2) APTT (22.0-30.0) sec ABG pH (7.35-7.45) ABG pCO2 (35-45) mmHg ABG pO2 (83-108) mmHg ABG HCO3 (21-25) mmol/L ABG Total CO2 (19-24) mmol/L ABG O2 Saturation (94-97) % ABG Hematocrit (34.0-46.0) % ABG Ionized Calcium (4.5-5.3) mg/dL ABG Glucose (75-99) mg/dL ABG Lactic Acid (0.5-1.6) mmol/L Hemoglobin (11.4-16.0) gm/dL BUN (7-17) mg/dL Creatinine (0.52-1.04) mg/dL Glucose (74-99) mg/dL POC Glucose (mg/dL) 215 H 207 H (70-110) mg/dL AST (14-36) U/L ALT (4-34) U/L Alkaline Phosphatase (38-126) U/L Total Protein (6.3-8.2) g/dL Albumin (3.5-5.0) g/dL Arterial Blood Glucose (75-99) mg/dL Crossmatch 03/25/25 03/25/25 03/25/25 Range/Units 20:55 21:54 23:05 WBC (4.50-10.00) 10*3/uL RBC (4.10-5.20) 10*6/uL Hgb (12.0-15.0) g/dL Hct (37.2-46.3) % Plt Count (140-440) 10*3/uL MPV (9.5-12.2) fL Immature Gran # (0.00-0.04) 10*3/uL Neutrophils # (1.80-7.70) 10*3/uL Lymphocytes # (0.90-5.00) 10*3/uL Monocytes # (0.20-1.00) 10*3/uL Eosinophils # (0.04-0.35) 10*3/uL PT (10.0-12.5) sec INR (<1.2) APTT (22.0-30.0) sec ABG pH (7.35-7.45) ABG pCO2 (35-45) mmHg ABG pO2 (83-108) mmHg ABG HCO3 (21-25) mmol/L ABG Total CO2 (19-24) mmol/L ABG O2 Saturation (94-97) % ABG Hematocrit (34.0-46.0) % ABG Ionized Calcium (4.5-5.3) mg/dL ABG Glucose (75-99) mg/dL ABG Lactic Acid (0.5-1.6) mmol/L Hemoglobin (11.4-16.0) gm/dL BUN (7-17) mg/dL Creatinine (0.52-1.04) mg/dL Glucose (74-99) mg/dL POC Glucose (mg/dL) 187 H 158 H 150 H (70-110) mg/dL AST (14-36) U/L ALT (4-34) U/L Alkaline Phosphatase (38-126) U/L Total Protein (6.3-8.2) g/dL Albumin (3.5-5.0) g/dL Arterial Blood Glucose (75-99) mg/dL Crossmatch 03/26/25 03/26/25 03/26/25 Range/Units 00:00 01:08 02:06 WBC (4.50-10.00) 10*3/uL RBC (4.10-5.20) 10*6/uL Hgb (12.0-15.0) g/dL Hct (37.2-46.3) % Plt Count (140-440) 10*3/uL MPV (9.5-12.2) fL Immature Gran # (0.00-0.04) 10*3/uL Neutrophils # (1.80-7.70) 10*3/uL Lymphocytes # (0.90-5.00) 10*3/uL Monocytes # (0.20-1.00) 10*3/uL Eosinophils # (0.04-0.35) 10*3/uL PT (10.0-12.5) sec INR (<1.2) APTT (22.0-30.0) sec ABG pH (7.35-7.45) ABG pCO2 (35-45) mmHg ABG pO2 (83-108) mmHg ABG HCO3 (21-25) mmol/L ABG Total CO2 (19-24) mmol/L ABG O2 Saturation (94-97) % ABG Hematocrit (34.0-46.0) % ABG Ionized Calcium (4.5-5.3) mg/dL ABG Glucose (75-99) mg/dL ABG Lactic Acid (0.5-1.6) mmol/L Hemoglobin (11.4-16.0) gm/dL BUN (7-17) mg/dL Creatinine (0.52-1.04) mg/dL Glucose (74-99) mg/dL POC Glucose (mg/dL) 143 H 144 H 153 H (70-110) mg/dL AST (14-36) U/L ALT (4-34) U/L Alkaline Phosphatase (38-126) U/L Total Protein (6.3-8.2) g/dL Albumin (3.5-5.0) g/dL Arterial Blood Glucose (75-99) mg/dL Crossmatch 03/26/25 03/26/25 03/26/25 Range/Units 03:03 03:03 03:03 WBC 10.42 H (4.50-10.00) 10*3/uL RBC 2.92 L (4.10-5.20) 10*6/uL Hgb 8.4 L (12.0-15.0) g/dL Hct 25.0 L (37.2-46.3) % Plt Count 81 L (140-440) 10*3/uL MPV (9.5-12.2) fL Immature Gran # (0.00-0.04) 10*3/uL Neutrophils # 9.44 H (1.80-7.70) 10*3/uL Lymphocytes # 0.46 L (0.90-5.00) 10*3/uL Monocytes # (0.20-1.00) 10*3/uL Eosinophils # 0.00 L (0.04-0.35) 10*3/uL PT (10.0-12.5) sec INR (<1.2) APTT (22.0-30.0) sec ABG pH (7.35-7.45) ABG pCO2 (35-45) mmHg ABG pO2 (83-108) mmHg ABG HCO3 (21-25) mmol/L ABG Total CO2 (19-24) mmol/L ABG O2 Saturation (94-97) % ABG Hematocrit (34.0-46.0) % ABG Ionized Calcium (4.5-5.3) mg/dL ABG Glucose (75-99) mg/dL ABG Lactic Acid (0.5-1.6) mmol/L Hemoglobin (11.4-16.0) gm/dL BUN 22 H (7-17) mg/dL Creatinine 1.13 H (0.52-1.04) mg/dL Glucose 132 H (74-99) mg/dL POC Glucose (mg/dL) 154 H (70-110) mg/dL AST 71 H (14-36) U/L ALT 41 H (4-34) U/L Alkaline Phosphatase 37 L (38-126) U/L Total Protein 5.0 L (6.3-8.2) g/dL Albumin 3.4 L (3.5-5.0) g/dL Arterial Blood Glucose (75-99) mg/dL Crossmatch 03/26/25 Range/Units 04:03 WBC (4.50-10.00) 10*3/uL RBC (4.10-5.20) 10*6/uL Hgb (12.0-15.0) g/dL Hct (37.2-46.3) % Plt Count (140-440) 10*3/uL MPV (9.5-12.2) fL Immature Gran # (0.00-0.04) 10*3/uL Neutrophils # (1.80-7.70) 10*3/uL Lymphocytes # (0.90-5.00) 10*3/uL Monocytes # (0.20-1.00) 10*3/uL Eosinophils # (0.04-0.35) 10*3/uL PT (10.0-12.5) sec INR (<1.2) APTT (22.0-30.0) sec ABG pH (7.35-7.45) ABG pCO2 (35-45) mmHg ABG pO2 (83-108) mmHg ABG HCO3 (21-25) mmol/L ABG Total CO2 (19-24) mmol/L ABG O2 Saturation (94-97) % ABG Hematocrit (34.0-46.0) % ABG Ionized Calcium (4.5-5.3) mg/dL ABG Glucose (75-99) mg/dL ABG Lactic Acid (0.5-1.6) mmol/L Hemoglobin (11.4-16.0) gm/dL BUN (7-17) mg/dL Creatinine (0.52-1.04) mg/dL Glucose (74-99) mg/dL POC Glucose (mg/dL) 133 H (70-110) mg/dL AST (14-36) U/L ALT (4-34) U/L Alkaline Phosphatase (38-126) U/L Total Protein (6.3-8.2) g/dL Albumin (3.5-5.0) g/dL Arterial Blood Glucose (75-99) mg/dL Crossmatch
[2025-03-26 20:24] LABS: Glucose,Whole Blood 87 mg/dL (70-110)
[2025-03-26 21:02] LABS: Glucose,Whole Blood 67 mg/dL (70-110)
[2025-03-26] MEDS: METOPROLOL TARTRATE 25 MG TAB PO SCH (21:08)
[2025-03-26] MEDS: DEXTROSE 50% SYRINGE 50 ML IVP PRN (21:09)
[2025-03-26 22:02] LABS: Glucose,Whole Blood 113 mg/dL (70-110)
[2025-03-26 23:08] LABS: Glucose,Whole Blood 159 mg/dL (70-110)
[2025-03-27 00:13] LABS: Glucose,Whole Blood 153 mg/dL (70-110)
[2025-03-27 01:15] LABS: Glucose,Whole Blood 111 mg/dL (70-110)
[2025-03-27 02:19] LABS: Glucose,Whole Blood 124 mg/dL (70-110)
[2025-03-27 03:08] LABS: Glucose,Whole Blood 112 mg/dL (70-110)
[2025-03-27 04:39] LABS: Glucose,Whole Blood 133 mg/dL (70-110)
[2025-03-27 05:06] LABS: Basophils # (A) 0.02 10*3/uL (0.00-0.10); Basophils % (A) 0.1 %; Eosinophils # (A) 0.01 10*3/uL (0.04-0.35); Eosinophils % (A) 0.1 %; HCT 24.6 % (37.2-46.3); HGB 8.2 g/dL (12.0-15.0); Lymphocytes # (A) 1.43 10*3/uL (0.90-5.00); Lymphocytes % (A) 7.3 %; MCH 29.1 pg (27.0-32.0); MCHC 33.3 g/dL (32.0-37.0); MCV 87.2 fL (80.0-97.0); Monocytes # (A) 1.79 10*3/uL (0.20-1.00); Monocytes % (A) 9.1 %; Neutrophils # (A) 16.26 10*3/uL (1.80-7.70); Neutrophils % (A) 82.8 %; Platelet Count 117 10*3/uL (140-440); RBC 2.82 10*6/uL (4.10-5.20); RDW 15.3 % (11.5-14.5); WBC 19.63 10*3/uL (4.50-10.00)
[2025-03-27 05:43] LABS: Glucose,Whole Blood 164 mg/dL (70-110)
[2025-03-27 05:48] LABS: ALT 22 U/L (4-34); AST 58 U/L (14-36); African American GFR (CKD) 40 (>60 ml/min/1.73 sqM); Albumin 3.1 g/dL (3.5-5.0); Alkaline Phosphatase 57 U/L (38-126); Anion Gap 9 mmol/L; Blood Urea Nitrogen 27 mg/dL (7-17); Calcium 9.0 mg/dL (8.4-10.2); Carbon Dioxide 21 mmol/L (22-30); Chloride 106 mmol/L (98-107); Glucose 125 mg/dL (74-99); Non-African American GFR(CKD) 35 (>60 ml/min/1.73 sqM); Potassium 4.3 mmol/L (3.5-5.1); Sodium 136 mmol/L (137-145); Total Protein 5.0 g/dL (6.3-8.2)
[2025-03-27] MEDS: PANTOPRAZOLE 40 MG TABLET PO SCH (06:54)
[2025-03-27 06:59] LABS: Glucose,Whole Blood 154 mg/dL (70-110)
--- NOTE | 2025-03-27 07:11 | XR ---
EXAMINATION TYPE: XR chest 1V portable DATE OF EXAM: 03/27/2025 COMPARISON: 03/26/2025 CLINICAL INDICATION: Female, 75 years old with history of Post Operative Cardiac Surgery; TECHNIQUE: Single frontal view of the chest is obtained. FINDINGS: There has been interval removal of the Tyro-Brian catheter and mediastinal tube. There is no change in the left chest tube. There is no pneumothorax. There is mild lower lobe atelectasis and probable small effusions. There is a left atrial occlusion device unchanged in position. IMPRESSION: 1. Stable postoperative changes as described above. No pneumothorax. 3. Interval removal of the Tyro-Brian catheter and mediastinal tube. No change in left chest [facility], , 03/27/2025 7:08 AM
[2025-03-27 07:52] LABS: Glucose,Whole Blood 148 mg/dL (70-110)
[2025-03-27] MEDS: MAGNESIUM HYDROXIDE 2,400 MG/30 ML CUP PO PRN (08:31)
--- NOTE | 2025-03-27 09:01 | P.PN ---
Subjective Progress Note Date: 03/27/25 Principal diagnosis: Multivessel coronary artery disease with left main disease, stable angina, acute kidney injury. Previous medical history of hypertension, hyperlipidemia, paro xysmal atrial fibrillation on Xarelto for anticoagulation outpatient, mild to moderate mitral valve regurgitation, diabetes mellitus type 2, obesity, gastroesophageal reflux disease, asthma, COVID in 2020, and lifelong non-smoker. Preoperative boil to right lateral chest as well as sebaceous cyst under left breast POD #2 pump assisted beating heart CABG x 4 with MONTEMAYOR to LAD, saphenous vein graft to second diagonal, obtuse marginal, PDA, modified Arshad-Maze procedure with bilateral pulmonary vein ablation and occlusion of the left atrial appendage with 35 mm AtriCure clip Postoperative acute blood loss anemia and thrombocytopenia, expected given hemodilution and pump assist The patient was seen and examined this morning sitting up in recliner in the intensive care unit in no acute distress. States pain is controlled on current medication regimen, denies shortness of breath. Much less sleepy today. Remains in sinus rhythm, hemodynamically stable. Currently on 4 L nasal cannula with oxygen saturation in the high 90s, able to achieve 500-750 mL on her incentive spirometry. Right internal jugular cordis, right radial arterial line, left pleural chest tube remain. Chest x-ray, labs reviewed. Patient did ambulate to the hallway twice yesterday and once this morning already. No other new concerns. Objective - Vital Signs Vital signs: Vital Signs Temp 97.5 F L 03/27/25 04:00 Pulse 74 03/27/25 08:20 Resp 18 03/27/25 07:00 BP 119/54 03/27/25 07:00 Pulse Ox 98 03/27/25 07:00 FiO2 40 03/25/25 16:38 Intake & Output 03/26/25 03/27/25 03/27/25 18:59 06:59 18:59 Intake Total 1080.772 338.472 32.145 Output Total 345 405 35 Balance 735.772 -66.528 -2.855 Weight 106.9 kg 106.3 kg Intake: IV 428 312 26 Invasive Line 1 30 Pressure Bag 78 72 6 Sodium Chloride 0.9% 1, 270 240 20 000 ml @ 20 mls/hr IV . Q24H [facility] Rx#:[id number] ceFAZolin 2 gm In Sodium 50 Chloride 0.9% 50 ml @ 100 mls/hr IVPB ONCE ONE Rx# :[id number] Intake, IV Titration 302.772 26.472 6.145 Amount Amiodarone 450 mg In 250 Dextrose 5% in Water 250 ml @ 0.5 MG/MIN 16.667 mls/hr IV .Q15H PRN Rx#: [id number] Insulin Regular 100 unit 52.772 26.472 6.145 In Sodium Chloride 0.9% 100 ml @ Per Protocol IV .Q0M [facility] Rx#:[id number] Oral 350 Output: Chest Tube Drainage 80 80 10 Left Pleural Chest Tube 80 80 10 Mediastinal Chest Tube 0 Drainage 10 Left leg ERICKA 10 Urine 255 325 25 Other: Voiding Method Indwelling Catheter Indwelling Catheter ABP, PAP, CO, CI - Last Documented Arterial Blood Pressure 114/35 Pulmonary Artery Pressure 39/13 Cardiac Output 3.9 Cardiac Index 1.9 - Exam CONSTITUTIONAL: Appears comfortable, cooperative, no acute distress RESPIRATORY: Lungs sounds diminished in the bases bilaterally. Respirations even, nonlabored. Currently on 4 L nasal cannula with oxygen saturation 98%. Able to achieve 500-750 mL on incentive spirometry. Strong cough. CARDIOVASCULAR: S1, S2 present. Regular rate and rhythm, sinus rhythm on telemetry. Sternum stable. Palpable peripheral pulses bilaterally. Bilateral lower extremity edema present. No calf pain or tenderness noted. Heart hugger in place with patient demonstrating appropriate use. Antiembolism stockings, SCDs present. GASTROINTESTINAL: Abdomen soft, nontender, nondistended. Active bowel sounds present 4 quadrants. Tolerating diet. Denies flatus, positive belching GENITOURINARY: John present draining clear, yellow urine. Output overnight 20-40 mL per hour, 580 mL in the last 24 hours INTEGUMENTARY: Skin is warm and dry. Anterior chest incision well approximated and covered with dry intact dressing. Extremity EVH site well approximated. Boil to right lateral chest cleaned out in the surgery and packed with iodoform gauze. Cyst under left breast covered with dry dressing NEUROLOGIC: Cranial nerves II through XII intact MUSKULOSKELETAL: Able to move all extremities, strength equal bilaterally PSYCHIATRIC: Alert and oriented to person place and time, appropriate affect, intact judgment and insight INVASIVE LINES AND TUBES: Left pleural chest tube present and connected to wall suction, no air leaks present, 70 mL serosanguineous drainage overnight, 150 mL last 24 hours. Right internal jugular cordis, right radial arterial line present - Allied health notes Allied health notes reviewed: nursing - Labs CBC & Chem 7: 03/27/25 04:45 03/27/25 04:45 Labs: Abnormal Lab Results - Last 24 Hours (Table) 03/24/25 03/26/25 03/26/25 Range/Units 06:33 09:00 11:02 WBC (4.50-10.00) 10*3/uL RBC (4.10-5.20) 10*6/uL Hgb (12.0-15.0) g/dL Hct (37.2-46.3) % Plt Count (140-440) 10*3/uL Immature Gran # (0.00-0.04) 10*3/uL Neutrophils # (1.80-7.70) 10*3/uL Monocytes # (0.20-1.00) 10*3/uL Eosinophils # (0.04-0.35) 10*3/uL Sodium (137-145) mmol/L Carbon Dioxide (22-30) mmol/L BUN (7-17) mg/dL Creatinine (0.52-1.04) mg/dL Glucose (74-99) mg/dL POC Glucose (mg/dL) 168 H 162 H (70-110) mg/dL AST (14-36) U/L Total Protein (6.3-8.2) g/dL Albumin (3.5-5.0) g/dL Crossmatch See Detail 03/26/25 03/26/25 03/26/25 Range/Units 15:15 15:52 17:11 WBC (4.50-10.00) 10*3/uL RBC (4.10-5.20) 10*6/uL Hgb (12.0-15.0) g/dL Hct (37.2-46.3) % Plt Count (140-440) 10*3/uL Immature Gran # (0.00-0.04) 10*3/uL Neutrophils # (1.80-7.70) 10*3/uL Monocytes # (0.20-1.00) 10*3/uL Eosinophils # (0.04-0.35) 10*3/uL Sodium (137-145) mmol/L Carbon Dioxide (22-30) mmol/L BUN (7-17) mg/dL Creatinine (0.52-1.04) mg/dL Glucose (74-99) mg/dL POC Glucose (mg/dL) 175 H 176 H 137 H (70-110) mg/dL AST (14-36) U/L Total Protein (6.3-8.2) g/dL Albumin (3.5-5.0) g/dL Crossmatch 03/26/25 03/26/25 03/26/25 Range/Units 18:05 21:00 22:00 WBC (4.50-10.00) 10*3/uL RBC (4.10-5.20) 10*6/uL Hgb (12.0-15.0) g/dL Hct (37.2-46.3) % Plt Count (140-440) 10*3/uL Immature Gran # (0.00-0.04) 10*3/uL Neutrophils # (1.80-7.70) 10*3/uL Monocytes # (0.20-1.00) 10*3/uL Eosinophils # (0.04-0.35) 10*3/uL Sodium (137-145) mmol/L Carbon Dioxide (22-30) mmol/L BUN (7-17) mg/dL Creatinine (0.52-1.04) mg/dL Glucose (74-99) mg/dL POC Glucose (mg/dL) 168 H 67 L 113 H (70-110) mg/dL AST (14-36) U/L Total Protein (6.3-8.2) g/dL Albumin (3.5-5.0) g/dL Crossmatch 03/26/25 03/27/25 03/27/25 Range/Units 23:07 00:11 01:14 WBC (4.50-10.00) 10*3/uL RBC (4.10-5.20) 10*6/uL Hgb (12.0-15.0) g/dL Hct (37.2-46.3) % Plt Count (140-440) 10*3/uL Immature Gran # (0.00-0.04) 10*3/uL Neutrophils # (1.80-7.70) 10*3/uL Monocytes # (0.20-1.00) 10*3/uL Eosinophils # (0.04-0.35) 10*3/uL Sodium (137-145) mmol/L Carbon Dioxide (22-30) mmol/L BUN (7-17) mg/dL Creatinine (0.52-1.04) mg/dL Glucose (74-99) mg/dL POC Glucose (mg/dL) 159 H 153 H 111 H (70-110) mg/dL AST (14-36) U/L Total Protein (6.3-8.2) g/dL Albumin (3.5-5.0) g/dL Crossmatch 03/27/25 03/27/25 03/27/25 Range/Units 02:17 03:05 04:37 WBC (4.50-10.00) 10*3/uL RBC (4.10-5.20) 10*6/uL Hgb (12.0-15.0) g/dL Hct (37.2-46.3) % Plt Count (140-440) 10*3/uL Immature Gran # (0.00-0.04) 10*3/uL Neutrophils # (1.80-7.70) 10*3/uL Monocytes # (0.20-1.00) 10*3/uL Eosinophils # (0.04-0.35) 10*3/uL Sodium (137-145) mmol/L Carbon Dioxide (22-30) mmol/L BUN (7-17) mg/dL Creatinine (0.52-1.04) mg/dL Glucose (74-99) mg/dL POC Glucose (mg/dL) 124 H 112 H 133 H (70-110) mg/dL AST (14-36) U/L Total Protein (6.3-8.2) g/dL Albumin (3.5-5.0) g/dL Crossmatch 03/27/25 03/27/25 03/27/25 Range/Units 04:45 04:45 05:42 WBC 19.63 H (4.50-10.00) 10*3/uL RBC 2.82 L (4.10-5.20) 10*6/uL Hgb 8.2 L (12.0-15.0) g/dL Hct 24.6 L (37.2-46.3) % Plt Count 117 L (140-440) 10*3/uL Immature Gran # 0.12 H (0.00-0.04) 10*3/uL Neutrophils # 16.26 H (1.80-7.70) 10*3/uL Monocytes # 1.79 H (0.20-1.00) 10*3/uL Eosinophils # 0.01 L (0.04-0.35) 10*3/uL Sodium 136 L (137-145) mmol/L Carbon Dioxide 21 L (22-30) mmol/L BUN 27 H (7-17) mg/dL Creatinine 1.45 H (0.52-1.04) mg/dL Glucose 125 H (74-99) mg/dL POC Glucose (mg/dL) 164 H (70-110) mg/dL AST 58 H (14-36) U/L Total Protein 5.0 L (6.3-8.2) g/dL Albumin 3.1 L (3.5-5.0) g/dL Crossmatch 03/27/25 03/27/25 Range/Units 06:57 07:50 WBC (4.50-10.00) 10*3/uL RBC (4.10-5.20) 10*6/uL Hgb (12.0-15.0) g/dL Hct (37.2-46.3) % Plt Count (140-440) 10*3/uL Immature Gran # (0.00-0.04) 10*3/uL Neutrophils # (1.80-7.70) 10*3/uL Monocytes # (0.20-1.00) 10*3/uL Eosinophils # (0.04-0.35) 10*3/uL Sodium (137-145) mmol/L Carbon Dioxide (22-30) mmol/L BUN (7-17) mg/dL Creatinine (0.52-1.04) mg/dL Glucose (74-99) mg/dL POC Glucose (mg/dL) 154 H 148 H (70-110) mg/dL AST (14-36) U/L Total Protein (6.3-8.2) g/dL Albumin (3.5-5.0) g/dL Crossmatch - Imaging and Cardiology Chest x-ray: report reviewed, image reviewed Assessment and Plan Assessment: Multivessel coronary artery disease with left main disease, stable angina status post four-vessel CABG Preoperative acute kidney injury Preoperative boil to right lateral chest as well as sebaceous cyst under left breast Postoperative acute blood loss anemia and thrombocytopenia, expected given hemodilution and pump assist History of hypertension Hyperlipidemia Paroxysmal atrial fibrillation on Xarelto for anticoagulation outpatient, status post modified Arshad-Maze and left atrial appendage ligation Mild to moderate mitral valve regurgitation Diabetes mellitus type 2, hemoglobin A1c 6.5% Obesity Gastroesophageal reflux disease Asthma COVID in 2020 Lifelong non-smoker, preoperative FEV1 94% predicted Plan: Continue to maximize medical therapy with aspirin, statin, Plavix, beta-zhane. Will increase beta-zhane therapy as tolerated Continue amiodarone for atrial fibrillation prophylaxis. Patient currently using normal sinus rhythm. No anticoagulation at this time Wean oxygen as tolerated. Encourage incentive spirometry use 10 times every hour while awake, bronchodilators per pulmonology Will monitor daily labs and x-rays. Electrolyte replacement per protocol. Will give 20 mg IV push Lasix today Increase activity, ambulate as tolerated. PT/OT/cardiac rehab consulted GI/DVT prophylaxis Insulin management per internal medicine Pain control per current medication regimen. No Toradol due to kidney disease Discontinue Cordis, arterial line Will discontinue left pleural chest tube Discontinue John catheter after diuresis from Lasix, may bladder scan and straight cath for greater than 300 mL residual Monitor and record strict accurate intake and output Daily weights Likely will place transfer orders for 3 S. cardiac stepdown unit More recommendations to follow as patient progresses
[2025-03-27] MEDS: FUROSEMIDE 10 MG/ML 2 ML VIAL IV ONE (09:11)
[2025-03-27] MEDS ORDERED: DEXTROSE 50% SYRINGE 50 ML IVP PRN ×2 (09:25)
--- NOTE | 2025-03-27 10:13 | P.PN ---
Subjective Progress Note Date: 03/27/25 Principal diagnosis: CABG Pulmonary consult dated March 24, 2025. 75-year-old female who was recently seen by cardiology, and, is apparently going to have CABG, on March 25, 2025. We were consulted, for input regarding her pulmonary status, her mild asthma, and what to anticipate, after surgery. The patient had a cardiac catheterization, on March 23. It showed calcified coronary arteries, significant disease in the distal left main, severe disease in the ostium of the right coronary artery, and proximal LAD, and moderately severe disease in the proximal left circumflex coronary artery. The patient does have a history of mild asthma. She takes an albuterol inhaler only as needed. She is a lifelong non-smoker. Does not really complain much of any lung issues or lung complaints. She denies any coughing, wheezing, chest tightness, or phlegm production. She does have a history of hypertension, hyperlipidemia, atrial fibrillation, diabetes mellitus, type II, recent abnormal stress test, and mild tricuspid valve regurgitation. In addition, she has moderate mitral valve regurgitation, and obesity, as well as GERD, and previous coronavirus infection. Current labs include a white count of 7.9, hemoglobin 12.4, hematocrit 39.1, and a platelet count of 211,000. Sodium 141, potassium 4.7, chlorides 104, CO2 29, anion gap 8, BUN 30, creatinine 1.44. Glucose is 101. The rest of the labs within normal. Cholesterol was 128. TSH was normal. Chest x-ray showed no acute cardiopulmonary disease. Chest CT showed no suspicious lung mass or nodule, and no acute cardiopulmonary disease. Progress note dated March 26, 2025. 75-year-old female postop day #1, status post four-vessel bypass surgery. She was extubated yesterday, March time. She is currently on amiodarone 0.5 mg/min, 0.9 saline at 50 cc an hour, and insulin drip at 6.5 units an hour. She continu es on nasal O2 at 4 L. Clinically, she is doing well. She is sitting in the chair next to the hospital bed. Her weaning parameters, and blood gases were excellent, prior to extubation. Current labs include a white count of 10.4, hemoglobin 8.4, hematocrit 25, and platelet count 81,000. Sodium 139, potassium 4.3, chlorides 106, CO2 24, anion gap 9, BUN 22, creatinine 1.13. Glucose is 132. The rest of the labs are reviewed. Chest x-ray shows postsurgical changes, typical status post CABG. Progress note dated March 27, 2025. 75-year-old female postop day #2, status post four-vessel bypass grafting. Today she is seen in the intensive care unit, room 267. She continues on nasal O2 at 3 L. She is getting insulin at 3 units an hour. She get a saline IV at 20 cc an hour, which will be discontinued. Clinically, she is doing well. She is sitting in a chair next to the hospital bed. No specific complaints. Current labs include a white count of 19.6, hemoglobin 8.2, hematocrit 24.6, platelet count of 117,000. Sodium 136, potassium 4.3, chlorides 106, CO2 21, anion gap 9, BUN 27, creatinine 1.45. Glucose is 148. Chest x-ray shows stable postoperative changes. Objective - Vital Signs Vital signs: Vital Signs Temp 98.3 F 03/27/25 08:00 Pulse 76 03/27/25 09:00 Resp 23 03/27/25 09:00 BP 129/56 03/27/25 09:00 Pulse Ox 94 L 03/27/25 09:00 FiO2 40 03/25/25 16:38 Intake & Output 03/26/25 03/27/25 03/27/25 18:59 06:59 18:59 Intake Total 1080.772 338.472 84.145 Output Total 345 405 100 Balance 735.772 -66.528 -15.855 Weight 106.9 kg 106.3 kg Intake: IV 428 312 78 Invasive Line 1 30 Pressure Bag 78 72 18 Sodium Chloride 0.9% 1, 270 240 60 000 ml @ 20 mls/hr IV . Q24H [facility] Rx#:[id number] ceFAZolin 2 gm In Sodium 50 Chloride 0.9% 50 ml @ 100 mls/hr IVPB ONCE ONE Rx# :[id number] Intake, IV Titration 302.772 26.472 6.145 Amount Amiodarone 450 mg In 250 Dextrose 5% in Water 250 ml @ 0.5 MG/MIN 16.667 mls/hr IV .Q15H [facility] Rx#: [id number] Insulin Regular 100 unit 52.772 26.472 6.145 In Sodium Chloride 0.9% 100 ml @ Per Protocol IV .Q0M [facility] Rx#:[id number] Oral 350 Output: Chest Tube Drainage 80 80 20 Left Pleural Chest Tube 80 80 20 Mediastinal Chest Tube 0 Drainage 10 Left leg ERICKA 10 Urine 255 325 80 Other: Voiding Method Indwelling Catheter Indwelling Catheter ABP, PAP, CO, CI - Last Documented Arterial Blood Pressure 137/39 Pulmonary Artery Pressure 39/13 Cardiac Output 3.9 Cardiac Index 1.9 - Exam No acute distress, oriented 3. Currently on 2 L nasal cannula. HEENT examination is grossly unremarkable. Mucous membranes are moist. No oral lesions. Neck supple. Full range of motion. No adenopathy thyromegaly or neck vein distention. Cardiovascular examination reveals regular rhythm rate. S1-S2 normal. No S3 or S4. No discernible murmur noted. Heart sounds are distant. Lungs reveal scattered bilateral rhonchi. No wheezes or crackles. Breath sounds equal. Abdomen soft bowel sounds are heard. No masses or tenderness. Extremities are intact. No cyanosis clubbing or edema. Skin is without rash or lesion. Neurologic examination is brief but nonfocal. - Labs CBC & Chem 7: 03/27/25 04:45 03/27/25 04:45 Labs: Abnormal Lab Results - Last 24 Hours (Table) 03/24/25 03/26/25 03/26/25 Range/Units 06:33 11:02 15:15 WBC (4.50-10.00) 10*3/uL RBC (4.10-5.20) 10*6/uL Hgb (12.0-15.0) g/dL Hct (37.2-46.3) % Plt Count (140-440) 10*3/uL Immature Gran # (0.00-0.04) 10*3/uL Neutrophils # (1.80-7.70) 10*3/uL Monocytes # (0.20-1.00) 10*3/uL Eosinophils # (0.04-0.35) 10*3/uL Sodium (137-145) mmol/L Carbon Dioxide (22-30) mmol/L BUN (7-17) mg/dL Creatinine (0.52-1.04) mg/dL Glucose (74-99) mg/dL POC Glucose (mg/dL) 162 H 175 H (70-110) mg/dL AST (14-36) U/L Total Protein (6.3-8.2) g/dL Albumin (3.5-5.0) g/dL Crossmatch See Detail 03/26/25 03/26/25 03/26/25 Range/Units 15:52 17:11 18:05 WBC (4.50-10.00) 10*3/uL RBC (4.10-5.20) 10*6/uL Hgb (12.0-15.0) g/dL Hct (37.2-46.3) % Plt Count (140-440) 10*3/uL Immature Gran # (0.00-0.04) 10*3/uL Neutrophils # (1.80-7.70) 10*3/uL Monocytes # (0.20-1.00) 10*3/uL Eosinophils # (0.04-0.35) 10*3/uL Sodium (137-145) mmol/L Carbon Dioxide (22-30) mmol/L BUN (7-17) mg/dL Creatinine (0.52-1.04) mg/dL Glucose (74-99) mg/dL POC Glucose (mg/dL) 176 H 137 H 168 H (70-110) mg/dL AST (14-36) U/L Total Protein (6.3-8.2) g/dL Albumin (3.5-5.0) g/dL Crossmatch 03/26/25 03/26/25 03/26/25 Range/Units 21:00 22:00 23:07 WBC (4.50-10.00) 10*3/uL RBC (4.10-5.20) 10*6/uL Hgb (12.0-15.0) g/dL Hct (37.2-46.3) % Plt Count (140-440) 10*3/uL Immature Gran # (0.00-0.04) 10*3/uL Neutrophils # (1.80-7.70) 10*3/uL Monocytes # (0.20-1.00) 10*3/uL Eosinophils # (0.04-0.35) 10*3/uL Sodium (137-145) mmol/L Carbon Dioxide (22-30) mmol/L BUN (7-17) mg/dL Creatinine (0.52-1.04) mg/dL Glucose (74-99) mg/dL POC Glucose (mg/dL) 67 L 113 H 159 H (70-110) mg/dL AST (14-36) U/L Total Protein (6.3-8.2) g/dL Albumin (3.5-5.0) g/dL Crossmatch 03/27/25 03/27/25 03/27/25 Range/Units 00:11 01:14 02:17 WBC (4.50-10.00) 10*3/uL RBC (4.10-5.20) 10*6/uL Hgb (12.0-15.0) g/dL Hct (37.2-46.3) % Plt Count (140-440) 10*3/uL Immature Gran # (0.00-0.04) 10*3/uL Neutrophils # (1.80-7.70) 10*3/uL Monocytes # (0.20-1.00) 10*3/uL Eosinophils # (0.04-0.35) 10*3/uL Sodium (137-145) mmol/L Carbon Dioxide (22-30) mmol/L BUN (7-17) mg/dL Creatinine (0.52-1.04) mg/dL Glucose (74-99) mg/dL POC Glucose (mg/dL) 153 H 111 H 124 H (70-110) mg/dL AST (14-36) U/L Total Protein (6.3-8.2) g/dL Albumin (3.5-5.0) g/dL Crossmatch 03/27/25 03/27/25 03/27/25 Range/Units 03:05 04:37 04:45 WBC 19.63 H (4.50-10.00) 10*3/uL RBC 2.82 L (4.10-5.20) 10*6/uL Hgb 8.2 L (12.0-15.0) g/dL Hct 24.6 L (37.2-46.3) % Plt Count 117 L (140-440) 10*3/uL Immature Gran # 0.12 H (0.00-0.04) 10*3/uL Neutrophils # 16.26 H (1.80-7.70) 10*3/uL Monocytes # 1.79 H (0.20-1.00) 10*3/uL Eosinophils # 0.01 L (0.04-0.35) 10*3/uL Sodium (137-145) mmol/L Carbon Dioxide (22-30) mmol/L BUN (7-17) mg/dL Creatinine (0.52-1.04) mg/dL Glucose (74-99) mg/dL POC Glucose (mg/dL) 112 H 133 H (70-110) mg/dL AST (14-36) U/L Total Protein (6.3-8.2) g/dL Albumin (3.5-5.0) g/dL Crossmatch 03/27/25 03/27/25 03/27/25 Range/Units 04:45 05:42 06:57 WBC (4.50-10.00) 10*3/uL RBC (4.10-5.20) 10*6/uL Hgb (12.0-15.0) g/dL Hct (37.2-46.3) % Plt Count (140-440) 10*3/uL Immature Gran # (0.00-0.04) 10*3/uL Neutrophils # (1.80-7.70) 10*3/uL Monocytes # (0.20-1.00) 10*3/uL Eosinophils # (0.04-0.35) 10*3/uL Sodium 136 L (137-145) mmol/L Carbon Dioxide 21 L (22-30) mmol/L BUN 27 H (7-17) mg/dL Creatinine 1.45 H (0.52-1.04) mg/dL Glucose 125 H (74-99) mg/dL POC Glucose (mg/dL) 164 H 154 H (70-110) mg/dL AST 58 H (14-36) U/L Total Protein 5.0 L (6.3-8.2) g/dL Albumin 3.1 L (3.5-5.0) g/dL Crossmatch 03/27/25 Range/Units 07:50 WBC (4.50-10.00) 10*3/uL RBC (4.10-5.20) 10*6/uL Hgb (12.0-15.0) g/dL Hct (37.2-46.3) % Plt Count (140-440) 10*3/uL Immature Gran # (0.00-0.04) 10*3/uL Neutrophils # (1.80-7.70) 10*3/uL Monocytes # (0.20-1.00) 10*3/uL Eosinophils # (0.04-0.35) 10*3/uL Sodium (137-145) mmol/L Carbon Dioxide (22-30) mmol/L BUN (7-17) mg/dL Creatinine (0.52-1.04) mg/dL Glucose (74-99) mg/dL POC Glucose (mg/dL) 148 H (70-110) mg/dL AST (14-36) U/L Total Protein (6.3-8.2) g/dL Albumin (3.5-5.0) g/dL Crossmatch Assessment and Plan Assessment: Postoperative day #2, S/P four-vessel CABG. Routine postoperative ventilator management, with extubation, on March 25, 2025. Multivessel coronary artery disease, with anticipated CABG, March 25, 2025. History of hypertension. History of hyperlipidemia. History of paroxysmal atrial fibrillation. History of type 2 diabetes mellitus. History of valvular heart disease, with mild tricuspid valve regurgitation, and moderate mitral valve regurgitation. Obesity, with a BMI of 38.1 kg/m. Gastroesophageal reflux disease. Mild intermittent asthma. Lifelong non-smoker. Plan: Plan dated March 24, 2025. The patient is seen today in room 369. We explained to the patient, that we have 2 major roles, after open heart surgery. The first role, is to get the patient extubated from mechanical ventilation. That typically occurs 4 to 6 hours after the patient leaves the operating room. I did explain that sometimes it is less, and sometimes more. Finally, after surgery, and after the patient is extubated, we see the patient on a daily basis, to ensure that the patient does not develop any pneumonia, pleural effusion, atelectasis, collapse, etc. This includes deep breathing, coughing, clearing of secretions, and hourly use of the incentive spirometer. We will continue to follow make recommendations along the way. Prognosis is thought to be good. The patient is a lifelong non- smoker. She does have history of very mild intermittent asthma. Dictation was produced using [employer] software. Please excuse any grammatical, word or spelling errors. Plan dated March 26, 2025. The patient is seen today in room 267. She is sitting in the chair next to the hospital bed. She is awake and alert. No distress. She is postoperative day #1, status post CABG, x 4 vessels. She was extubated yesterday, March 25 with excellent gases, weaning parameters. She continues on amiodarone 0.5 mg/min, and saline at 50 cc an hour. In addition, she is getting insulin drip at 6.5 units an hour. Labs, x-rays, and medications are reviewed. We will continue to follow and make recommendations along the way. Overall prognosis remains guarded. We encouraged the hourly use of the incentive spirometer. We also recommend deep breathing, coughing, and clearing of secretions. Dictation was produced using [employer] software. Please excuse any grammatical, word or spelling errors. Plan dated March 27, 2025. The patient is seen today in room 267. The patient is sitting in a chair next to the hospital bed. She has been weaned down to 2 L of oxygen. Clinically, the patient is doing very well. She has no specific complaints. The patient is on 3 8 units of insulin per hour, and saline at 20 cc an hour, which will be discontinued. Today is postoperative day #2. All labs, x-rays, medications are reviewed. We will continue to follow the patient, make recommendations along the way. Prognosis is thought to be generally good. Dictation was produced using [employer] software. Please excuse any grammatical, word or spelling errors. Time with Patient: Less than 30
[2025-03-27 11:50] LABS: Glucose,Whole Blood 152 mg/dL (70-110)
--- NOTE | 2025-03-27 11:56 | P.PN ---
Subjective Progress Note Date: 03/27/25 HISTORY OF PRESENTING ILLNESS: 77-year-old follows up with Dr. Cavanaugh. History of hypertension dyslipidemia paroxysmal atrial fibrillation anticoagulation with Xarelto. Type 2 diabetes. As an outpatient because of symptoms of palpitations and nonspecific symptoms of decreased exercise capacity increased fatigue shortness of breath she had a stress test done which was abnormal showing large reversible perfusion defect in inferior and inferoapical segments.. For this she underwent cardiac catheteriz ation which showed 50 to 60% distal left main, 95% LAD after first septal takeoff, second annular branch had 50 to 60% ostial stenosis, 70% stenosis in proximal LCx, 99% stenosis in ostium of RCA. Due to multivessel disease, CT surgery team was requested to evaluate the patient for possible CABG . At the time of evaluation she is comfortable denies any active chest pain chest pressure shortness of breath. Right radial site appears intact with no signs of hematoma or bleeding, intact radial pulse. Labs and vitals were essentially within acceptable range ..................................... ................................................................................ ......................... [facility] Vitals: 145/80, heart rate 59 [facility] Labs: Hb 12.5, BUN 32, creatinine 1.6, repeat creatinine 1.4, A1c of 6.5, LDL 31, HDL 53, TG G212, TSH 2.6 ....................................... ................................................................................ ....................... Prior cardiac testing: Echo EF 55%, mild concentric LVH, aortic sclerosis, mild to moderate mitral regurgitation, cardiac catheterization showed 50 to 60% distal left main, 95% LAD after first s eptal takeoff, second annular branch had 50 to 60% ostial stenosis, 70% stenosis in proximal LCx, 99% stenosis in ostium of RCA ........................................................................ ...................................................................... Progress note 03/25/2025 Seen and examined at bedside. She will go for open heart surgery today. Hemodynamically stable. 03/26/2025 Seen and examined at bedside. Yesterday night she was extubated. This morning she is on 4 L, saturating in the high 90s, 500 mL on incentive spirometer Labile blood pressure, Lancing-Brian right art line, mediastinal and left pleural chest tubes are in place. Ambulated in the room with physical therapy. 03/27/2025 Lancing-Brian catheter is out, chest tubes are out, to sinus rhythm on telemetry, no heart blocks or any atrial fibrillation noticed Beta-zhane was increased. Blood pressure and heart rate are within acceptable ranges BP 129/55, heart rate 71 ....................................... ................................................................................ ....................... PHYSICAL EXAMINATION: Neck: Brisk carotid upstroke, no jugular venous distention. Lungs: Mild crackles audible. Diminished air entry, poor inspiratory effort, chest tube in place with excellent tube in place. Heart: Regular rate and rhythm, S1-S2, no significant murmur Abdomen: Soft nontender, positive bowel sounds. Extremities: No edema, intact distal pulses. Neuro: Alert, oritented, no focal deficits. Detailed neuro exam was not performed. ................................................ ................................................................................ .............. ASSESSMENT: # Multivessel CAD status post four-vessel CABG status post Arshad-Maze procedure, left atrial appendage ligation # Prior history of paroxysmal A-fib # Type 2 diabetes # Essential hypertension, dyslipidemia # Obesity # Moderate MR PLAN: Continue aspirin statin Plavix metoprolol 25 twice daily On amiodarone 400 twice daily, Patient has been transferred out of ICU to telemetry floor Will continue to follow Objective - Vital Signs Vital signs: Vital Signs Temp 98.3 F 03/27/25 08:00 Pulse 71 03/27/25 10:00 Resp 24 03/27/25 10:00 BP 129/55 03/27/25 10:00 Pulse Ox 96 03/27/25 10:00 FiO2 40 03/25/25 16:38 Intake & Output 03/26/25 03/27/25 03/27/25 18:59 06:59 18:59 Intake Total 1080.772 338.472 84.145 Output Total 345 405 175 Balance 735.772 -66.528 -90.855 Weight 106.9 kg 106.3 kg Intake: IV 428 312 78 Invasive Line 1 30 Pressure Bag 78 72 18 Sodium Chloride 0.9% 1, 270 240 60 000 ml @ 20 mls/hr IV . Q24H [facility] Rx#:[id number] ceFAZolin 2 gm In Sodium 50 Chloride 0.9% 50 ml @ 100 mls/hr IVPB ONCE ONE Rx# :[id number] Intake, IV Titration 302.772 26.472 6.145 Amount Amiodarone 450 mg In 250 Dextrose 5% in Water 250 ml @ 0.5 MG/MIN 16.667 mls/hr IV .Q15H [facility] Rx#: [id number] Insulin Regular 100 unit 52.772 26.472 6.145 In Sodium Chloride 0.9% 100 ml @ Per Protocol IV .Q0M [facility] Rx#:[id number] Oral 350 Output: Chest Tube Drainage 80 80 20 Left Pleural Chest Tube 80 80 20 Mediastinal Chest Tube 0 Drainage 10 Left leg ERICKA 10 Urine 255 325 155 Other: Voiding Method Indwelling Catheter Indwelling Catheter Indwelling Catheter ABP, PAP, CO, CI - Last Documented Arterial Blood Pressure 137/39 Pulmonary Artery Pressure 39/13 Cardiac Output 3.9 Cardiac Index 1.9 - Labs CBC & Chem 7: 03/27/25 04:45 03/27/25 04:45 Labs: Abnormal Lab Results - Last 24 Hours (Table) 03/24/25 03/26/25 03/26/25 Range/Units 06:33 15:15 15:52 WBC (4.50-10.00) 10*3/uL RBC (4.10-5.20) 10*6/uL Hgb (12.0-15.0) g/dL Hct (37.2-46.3) % Plt Count (140-440) 10*3/uL Immature Gran # (0.00-0.04) 10*3/uL Neutrophils # (1.80-7.70) 10*3/uL Monocytes # (0.20-1.00) 10*3/uL Eosinophils # (0.04-0.35) 10*3/uL Sodium (137-145) mmol/L Carbon Dioxide (22-30) mmol/L BUN (7-17) mg/dL Creatinine (0.52-1.04) mg/dL Glucose (74-99) mg/dL POC Glucose (mg/dL) 175 H 176 H (70-110) mg/dL AST (14-36) U/L Total Protein (6.3-8.2) g/dL Albumin (3.5-5.0) g/dL Crossmatch See Detail 03/26/25 03/26/25 03/26/25 Range/Units 17:11 18:05 21:00 WBC (4.50-10.00) 10*3/uL RBC (4.10-5.20) 10*6/uL Hgb (12.0-15.0) g/dL Hct (37.2-46.3) % Plt Count (140-440) 10*3/uL Immature Gran # (0.00-0.04) 10*3/uL Neutrophils # (1.80-7.70) 10*3/uL Monocytes # (0.20-1.00) 10*3/uL Eosinophils # (0.04-0.35) 10*3/uL Sodium (137-145) mmol/L Carbon Dioxide (22-30) mmol/L BUN (7-17) mg/dL Creatinine (0.52-1.04) mg/dL Glucose (74-99) mg/dL POC Glucose (mg/dL) 137 H 168 H 67 L (70-110) mg/dL AST (14-36) U/L Total Protein (6.3-8.2) g/dL Albumin (3.5-5.0) g/dL Crossmatch 03/26/25 03/26/25 03/27/25 Range/Units 22:00 23:07 00:11 WBC (4.50-10.00) 10*3/uL RBC (4.10-5.20) 10*6/uL Hgb (12.0-15.0) g/dL Hct (37.2-46.3) % Plt Count (140-440) 10*3/uL Immature Gran # (0.00-0.04) 10*3/uL Neutrophils # (1.80-7.70) 10*3/uL Monocytes # (0.20-1.00) 10*3/uL Eosinophils # (0.04-0.35) 10*3/uL Sodium (137-145) mmol/L Carbon Dioxide (22-30) mmol/L BUN (7-17) mg/dL Creatinine (0.52-1.04) mg/dL Glucose (74-99) mg/dL POC Glucose (mg/dL) 113 H 159 H 153 H (70-110) mg/dL AST (14-36) U/L Total Protein (6.3-8.2) g/dL Albumin (3.5-5.0) g/dL Crossmatch 03/27/25 03/27/25 03/27/25 Range/Units 01:14 02:17 03:05 WBC (4.50-10.00) 10*3/uL RBC (4.10-5.20) 10*6/uL Hgb (12.0-15.0) g/dL Hct (37.2-46.3) % Plt Count (140-440) 10*3/uL Immature Gran # (0.00-0.04) 10*3/uL Neutrophils # (1.80-7.70) 10*3/uL Monocytes # (0.20-1.00) 10*3/uL Eosinophils # (0.04-0.35) 10*3/uL Sodium (137-145) mmol/L Carbon Dioxide (22-30) mmol/L BUN (7-17) mg/dL Creatinine (0.52-1.04) mg/dL Glucose (74-99) mg/dL POC Glucose (mg/dL) 111 H 124 H 112 H (70-110) mg/dL AST (14-36) U/L Total Protein (6.3-8.2) g/dL Albumin (3.5-5.0) g/dL Crossmatch 03/27/25 03/27/25 03/27/25 Range/Units 04:37 04:45 04:45 WBC 19.63 H (4.50-10.00) 10*3/uL RBC 2.82 L (4.10-5.20) 10*6/uL Hgb 8.2 L (12.0-15.0) g/dL Hct 24.6 L (37.2-46.3) % Plt Count 117 L (140-440) 10*3/uL Immature Gran # 0.12 H (0.00-0.04) 10*3/uL Neutrophils # 16.26 H (1.80-7.70) 10*3/uL Monocytes # 1.79 H (0.20-1.00) 10*3/uL Eosinophils # 0.01 L (0.04-0.35) 10*3/uL Sodium 136 L (137-145) mmol/L Carbon Dioxide 21 L (22-30) mmol/L BUN 27 H (7-17) mg/dL Creatinine 1.45 H (0.52-1.04) mg/dL Glucose 125 H (74-99) mg/dL POC Glucose (mg/dL) 133 H (70-110) mg/dL AST 58 H (14-36) U/L Total Protein 5.0 L (6.3-8.2) g/dL Albumin 3.1 L (3.5-5.0) g/dL Crossmatch 03/27/25 03/27/25 03/27/25 Range/Units 05:42 06:57 07:50 WBC (4.50-10.00) 10*3/uL RBC (4.10-5.20) 10*6/uL Hgb (12.0-15.0) g/dL Hct (37.2-46.3) % Plt Count (140-440) 10*3/uL Immature Gran # (0.00-0.04) 10*3/uL Neutrophils # (1.80-7.70) 10*3/uL Monocytes # (0.20-1.00) 10*3/uL Eosinophils # (0.04-0.35) 10*3/uL Sodium (137-145) mmol/L Carbon Dioxide (22-30) mmol/L BUN (7-17) mg/dL Creatinine (0.52-1.04) mg/dL Glucose (74-99) mg/dL POC Glucose (mg/dL) 164 H 154 H 148 H (70-110) mg/dL AST (14-36) U/L Total Protein (6.3-8.2) g/dL Albumin (3.5-5.0) g/dL Crossmatch 03/27/25 Range/Units 11:49 WBC (4.50-10.00) 10*3/uL RBC (4.10-5.20) 10*6/uL Hgb (12.0-15.0) g/dL Hct (37.2-46.3) % Plt Count (140-440) 10*3/uL Immature Gran # (0.00-0.04) 10*3/uL Neutrophils # (1.80-7.70) 10*3/uL Monocytes # (0.20-1.00) 10*3/uL Eosinophils # (0.04-0.35) 10*3/uL Sodium (137-145) mmol/L Carbon Dioxide (22-30) mmol/L BUN (7-17) mg/dL Creatinine (0.52-1.04) mg/dL Glucose (74-99) mg/dL POC Glucose (mg/dL) 152 H (70-110) mg/dL AST (14-36) U/L Total Protein (6.3-8.2) g/dL Albumin (3.5-5.0) g/dL Crossmatch
[2025-03-27] MEDS: LINAGLIPTIN 5 MG TABLET PO SCH (11:58)
[2025-03-27] MEDS: INSULIN LISPRO (HumaLOG) 100 UNIT/ML 10 mL VL SQ SCH (12:31)
[2025-03-27 16:14] LABS: Glucose,Whole Blood 187 mg/dL (70-110)
[2025-03-27 19:54] LABS: Glucose,Whole Blood 150 mg/dL (70-110)
[2025-03-27] MEDS: ALBUMIN HUMAN 25% 50 ML in EMPTY BAG 1 BAG IVPB ONE ×2 (20:37→20:38)
[2025-03-27] MEDS: ALBUMIN HUMAN 5% 500 ML in EMPTY BAG 1 BAG IVPB ONE ×6 (20:38→20:39)
[2025-03-27] MEDS: CALCIUM CHLORIDE 100 MG/ML 10 ML SYRINGE IVP ONE (20:39)
[2025-03-27] MEDS: ceFAZolin 1,000 MG in SODIUM CHLORIDE 0.9% IRRIGATIO 1,000 ML IRRIGATION ONE (20:39)
[2025-03-27] MEDS: DILTIAZEM 125 MG in DEXTROSE 5% IN WATER 100 ML IV SCH (20:40)
[2025-03-27] MEDS: HEPARIN SODIUM 1,000 UN/ML (10ML VL) IV ONE (20:40)
[2025-03-27] MEDS: CHLORHEXIDINE GLUCONATE 15 ML CUP MUCOUS MEM ONE (20:40)
[2025-03-27] MEDS: CLEVIDIPINE BUTYRATE 25 MG in EMPTY BAG 1 BAG IV SCH (20:40)
[2025-03-27] MEDS: HEPARIN SODIUM,PORCINE (1 ML) 5,000 UNIT in SODIUM CHLORIDE 0.9% 500 ML 500 ML IV ONE (20:40)
[2025-03-27] MEDS: NITROGLYCERIN-D5W PMX 25 MG/250 ML BTL IV ONE (20:41)
[2025-03-27] MEDS: MAGNESIUM SULFATE 16.24 MEQ in EMPTY SYRINGE 1 SYR IV ONE (20:41)
[2025-03-27] MEDS: MANNITOL 25% 12.5 GM/50 ML VIAL IV ONE ×2 (20:41)
[2025-03-27] MEDS: NITROGLYCERIN-D5W PMX 50 MG in DEXTROSE/WATER 1 250ML.BAG IV SCH (20:42)
[2025-03-27] MEDS: PROTAMINE SULFATE 10 MG/ML 25 ML VIAL IV ONE (20:42)
[2025-03-27] MEDS: PHENYLEPHRINE 10 MG/ML VIAL IV ONE (20:42)
[2025-03-27] MEDS: PHENYLEPHRINE 40 MG in SODIUM CHLORIDE 0.9% 250 ML IV ONE (20:42)
[2025-03-27] MEDS: PROTAMINE SULFATE 250 MG in EMPTY BAG 1 BAG IV ONE (20:42)
[2025-03-27] MEDS: PAPAVERINE 360 MG in SODIUM CHLORIDE 0.9% 90 ML IV ONE (20:42)
[2025-03-27] MEDS: TRANEXAMIC ACID 2,000 MG in SODIUM CHLORIDE 0.9% 80 ML IV ONE ×2 (20:43)
[2025-03-27] MEDS: SODIUM BICARB 8.4% 50 ML SYR (1 MEQ/ML) IV ONE (20:43)
[2025-03-27] MEDS: AMIODARONE 150 MG Bolus IV ONE (20:44)
[2025-03-27] MEDS: AMIODARONE 360 MG in DEXTROSE 5% IN WATER 200 ML IV ONE (20:44)
[2025-03-28 05:55] LABS: Glucose,Whole Blood 156 mg/dL (70-110)
[2025-03-28] MEDS ORDERED: SENNOSIDES-DOCUSATE SODIUM 1 EACH TAB PO PRN (06:34)
--- NOTE | 2025-03-28 06:55 | XR ---
Chest, 2 view. CLINICAL INDICATION: Female, 75 years old with history of Post open heart COMPARISON: 03/27/2025 TECHNIQUE: PA and lateral views the chest are obtained. FINDINGS: There are small bilateral pleural effusions. There is minimal bilateral atelectasis which has decreas ed in the interval. There is no pneumothorax. The heart is mildly enlarged but the pulmonary vasculature is not congested. There is a left atrial o cclusion device. There are median sternotomy wires IMPRESSION: Postop changes with mild interval improvement. [facility], , 03/28/2025 6:53 AM
--- NOTE | 2025-03-28 07:24 | P.PN ---
Subjective Progress Note Date: 03/28/25 Principal diagnosis: Multivessel coronary artery disease with left main disease, stable angina, acute kidney injury. Previous medical history of hypertension, hyperlipidemia, paro xysmal atrial fibrillation on Xarelto for anticoagulation outpatient, mild to moderate mitral valve regurgitation, diabetes mellitus type 2, obesity, gastroesophageal reflux disease, asthma, COVID in 2019, and lifelong non-smoker. Preoperative boil to right lateral chest as well as sebaceous cyst under left breast POD #3 pump assisted beating heart CABG x 4 with M[place]OR to LAD, saphenous vein graft to second diagonal, obtuse marginal, PDA, modified Arshad-Maze procedure with bilateral pulmonary vein ablation and occlusion of the left atrial appendage with 35 mm AtriCure clip Postoperative acute blood loss anemia and thrombocytopenia, expected given hemodilution and pump assist The patient was seen and examined this morning sitting up in recliner on the cardiac stepdown unit in no acute distress. States pain is controlled on current medication regimen, denies shortness of breath. Only complaint is that she feels a bit woozy. Remains in sinus rhythm, hemodynamically stable. Currently on room air with oxygen saturation in the mid 90s, able to achieve 750 mL on her incentive spirometry. Chest x-ray reviewed revealing small bilateral pleural effusions which is expected after surgery, labs pending. Patient did ambulate in the hallway twice yesterday. All lines and tubes were discontinued yesterday. No other new concerns. Objective - Vital Signs Vital signs: Vital Signs Temp 98.2 F 03/28/25 04:00 Pulse 70 03/28/25 04:00 Resp 16 03/28/25 04:00 BP 114/71 03/28/25 04:00 Pulse Ox 95 03/28/25 04:00 FiO2 40 03/25/25 16:38 Intake & Output 03/27/25 03/28/25 03/28/25 18:59 06:59 18:59 Intake Total 324.145 Output Total 275 Balance 49.145 Weight 105.6 kg Intake: IV 78 Pressure Bag 18 Sodium Chloride 0.9% 1, 60 000 ml @ 20 mls/hr IV . Q24H [facility] Rx#:[id number] Intake, IV Titration 6.145 Amount Insulin Regular 100 unit 6.145 In Sodium Chloride 0.9% 100 ml @ Per Protocol IV .Q0M [facility] Rx#:[id number] Oral 240 Output: Chest Tube Drainage 20 Left Pleural Chest Tube 20 Urine 255 Other: Voiding Method Indwelling Catheter Toilet # Voids 1 1 # Bowel Movements 1 ABP, PAP, CO, CI - Last Documented Arterial Blood Pressure 137/39 Pulmonary Artery Pressure 39/13 Cardiac Output 3.9 Cardiac Index 1.9 - Exam CONSTITUTIONAL: Appears comfortable, cooperative, no acute distress RESPIRATORY: Lungs sounds diminished in the bases bilaterally. Respirations even, nonlabored. Currently on room air with oxygen saturation 95%. Able to achieve 750 mL on incentive spirometry. Strong cough. CARDIOVASCULAR: S1, S2 present. Regular rate and rhythm, sinus rhythm on telemetry. Sternum stable. Palpable peripheral pulses bilaterally. Bilateral lower extremity edema present. No calf pain or tenderness noted. Heart hugger in place with patient demonstrating appropriate use. Antiembolism stockings, SCDs present. GASTROINTESTINAL: Abdomen soft, nontender, nondistended. Active bowel sounds present 4 quadrants. Tolerating minimal diet. Positive bowel movement 03/27 GENITOURINARY: John discontinued yesterday continues to void although amount not documented INTEGUMENTARY: Skin is warm and dry. Anterior chest incision well approximated and covered with dry intact dressing. Extremity EVH site well approximated. Boil to right lateral chest cleaned out in the surgery and packed daily with iodoform gauze. Cyst under left breast covered with dry dressing NEUROLOGIC: Cranial nerves II through XII intact MUSKULOSKELETAL: Able to move all extremities, strength equal bilaterally PSYCHIATRIC: Alert and oriented to person place and time, appropriate affect, intact judgment and insight - Allied health notes Allied health notes reviewed: nursing - Labs CBC & Chem 7: 03/27/25 04:45 03/27/25 04:45 Labs: Abnormal Lab Results - Last 24 Hours (Table) 03/27/25 03/27/25 03/27/25 Range/Units 07:50 11:49 16:12 POC Glucose (mg/dL) 148 H 152 H 187 H (70-110) mg/dL 03/27/25 03/28/25 Range/Units 19:54 05:53 POC Glucose (mg/dL) 150 H 156 H (70-110) mg/dL - Imaging and Cardiology Chest x-ray: report reviewed, image reviewed Assessment and Plan Assessment: Multivessel coronary artery disease with left main disease, stable angina status post four-vessel CABG Preoperative acute kidney injury Preoperative boil to right lateral chest as well as sebaceous cyst under left breast Postoperative acute blood loss anemia and thrombocytopenia, expected given hemodilution and pump assist History of hypertension Hyperlipidemia Paroxysmal atrial fibrillation on Xarelto for anticoagulation outpatient, status post modified Arshad-Maze and left atrial appendage ligation Mild to moderate mitral valve regurgitation Diabetes mellitus type 2, hemoglobin A1c 6.5% Obesity Gastroesophageal reflux disease Asthma COVID in 2020 Lifelong non-smoker, preoperative FEV1 94% predicted Plan: Continue to maximize medical therapy with aspirin, statin, Plavix, beta-zhane. Will increase beta-zhane therapy as tolerated Continue amiodarone for atrial fibrillation prophylaxis. Patient currently using normal sinus rhythm. No anticoagulation at this time Encourage incentive spirometry use 10 times every hour while awake, bronch odilators per pulmonology Will monitor daily labs and x-rays. Electrolyte replacement per protocol Increase activity, ambulate as tolerated. PT/OT/cardiac rehab consulted GI/DVT prophylaxis Insulin management per internal medicine Pain control per current medication regimen. No Toradol due to kidney disease Monitor and record strict accurate intake and output Daily weights Shower daily starting today Continue to treat sebaceous cyst under left breast with mupirocin and daily dressing change per nursing Continue to clean and pack with iodoform gauze boil area to right lateral chest per [employer] Discharge planning in progress, anticipate discharge to home with home care in the next 24 to 48 hours More recommendations to follow as patient progresses
[2025-03-28 07:36] LABS: Basophils # (A) 0.02 10*3/uL (0.00-0.10); Basophils % (A) 0.1 %; Eosinophils # (A) 0.02 10*3/uL (0.04-0.35); Eosinophils % (A) 0.1 %; HCT 25.0 % (37.2-46.3); HGB 7.8 g/dL (12.0-15.0); Lymphocytes # (A) 1.68 10*3/uL (0.90-5.00); Lymphocytes % (A) 9.0 %; MCH 27.7 pg (27.0-32.0); MCHC 31.2 g/dL (32.0-37.0); MCV 88.7 fL (80.0-97.0); Monocytes # (A) 1.36 10*3/uL (0.20-1.00); Monocytes % (A) 7.3 %; Neutrophils # (A) 15.38 10*3/uL (1.80-7.70); Neutrophils % (A) 82.7 %; Platelet Count 149 10*3/uL (140-440); RBC 2.82 10*6/uL (4.10-5.20); RDW 15.6 % (11.5-14.5); WBC 18.60 10*3/uL (4.50-10.00)
[2025-03-28 08:26] LABS: ALT 16 U/L (4-34); AST 44 U/L (14-36); African American GFR (CKD) 30 (>60 ml/min/1.73 sqM); Albumin 3.3 g/dL (3.5-5.0); Alkaline Phosphatase 74 U/L (38-126); Anion Gap 11 mmol/L; Blood Urea Nitrogen 40 mg/dL (7-17); Calcium 9.1 mg/dL (8.4-10.2); Carbon Dioxide 22 mmol/L (22-30); Chloride 102 mmol/L (98-107); Glucose 131 mg/dL (74-99); Non-African American GFR(CKD) 26 (>60 ml/min/1.73 sqM); Potassium 4.9 mmol/L (3.5-5.1); Sodium 135 mmol/L (137-145); Total Protein 5.5 g/dL (6.3-8.2)
--- NOTE | 2025-03-28 09:33 | P.PN ---
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 Cardiac catheterization revealed calcified coronary arteries, significant disease in the distal left main, severe disease in the ostium of the RCA and proximal LAD, and moderate severe disease in the proximal left circumflex. Cardiology consulted CT surgery for evaluation of possible coronary artery bypass grafting. Patient is being admitted to medicine with CT surgery on consult as well as cardiology. Patient follows with Dr. Deluca in the outpatient setting with a past medical history of atrial fibrillation, asthma, diabetes mellitus, GERD, hyperlipidemia, hypertension, IBS, obesity. Patient rarely drinks, denies any smoking and denies illicit drug use. Patient was recently hospitalized over at [facility] in December of this year and was noted to have new onset atrial fibrillation. Patient reports since then she has been having some increasing shortness of breath and finding it difficult to perform activities that has been progressively getting worse over the last few weeks. CT surgery following and patient is being initiated on CABG workup protocol. Will add Accu-Cheks AC and at bedtime along with insulin regimen for now and we will follow-up on repeat labs in the a.m. 03/24/2025 Patient is seen in follow-up today with no acute overnight issues noted. Patient currently undergoing further workup with CT surgery and tentatively scheduled for CABG with Dr. Ellis patient is afebrile no reports of chest pain or shortness of breath. Patient has been tolerating diet and will be n.p.o. at midnight. Continue monitoring blood sugars closely and will continue current insulin regimen. The bedside and encouraged patient to continue using at least 10 times every hour while awake. 03/25/2025 Patient is evaluated in follow-up earlier this morning and is in the OR scheduled to undergo CABG and will await official CT surgery report. 03/26/2025 Patient seen in follow-up status post assisted CABG x 4 with MONTEMAYOR to LAD, currently sitting up in the chair on 4 L with extubated successfully postsurgical yesterday afternoon and tolerating well. Heart hugger is noted and multiple chest tubes along with Robertsdale's catheter, continued indwelling Escoto catheter and not currently on any pressor support. Patient is on amiodarone and cardiology is following as well. Encouraged incentive spirometer at least 10 times every hour while awake and continued PT/OT therapy. Patient is maintained on insulin drip and will continue as patient does not have much of an appetite with some nausea and not eating much as of yet. White count is 10.42 today, hemoglobin is 8.4, platelets 81, sodium 139, potassium 4.3, BUN 22, creatinine 1.13, liver functions remain elevated Today although trending down nicely. 03/27/2025 Patient is evaluated today in follow up in the ICU. Patient is postoperative CABG x 4. Patient continues with escoto catheter and left sided chest tube. Robertsdale- Brian catheter has been removed. Patient to be weaned off the insulin gtt today and transition to sliding scale insulin ACHS and resume home sitagliptin daily. Chest xray today reveals mild lower lobe atelectasis and probable small effusions. Patient encouraged to continue using incentive spirometer 10 x an hour while awake. Patient has been passing gas and attempting to have a bowel movement today. White blood cell count 19.63, hgb 8.2, sodium 136, potassium 4.3, BUN 27, creatinine 1.45. LFTS currently trending down and near normal. Patient is afebrile and maintaining oxygen saturations of 95% while on room air. Review of systems: Constitutional: reports of fatigue, no fever, or chills Cardiovascular: No reports of chest pain or palpitations, reports chest wall pain Respiratory: reports of shortness of breath and pain with deep inspiration GI: No reports of nausea, vomiting, or diarrhea, reports not much of an appetite : No reports of dysuria or retention, currently has indwelling Escoto catheter Neurovascular: reports of significant weakness All medications have been reviewed PHYSICAL EXAMINATION: GENERAL: The patient is lethargic although easily arousable, in alert and oriented x3, not in any acute distress. Well developed, elderly appearing, morbidly obese, sitting up in the chair HEENT: Pupils are round and equally reacting to light. EOMI. No scleral icterus. No conjunctival pallor. Normocephalic, atraumatic. No pharyngeal erythema. No thyromegaly. CARDIOVASCULAR: S1 and S2 muffled, irregular A-fib on the monitor PULMONARY: Very diminished breath sounds bilaterally otherwise chest is clear to auscultation, no wheezing or crackles. Weak inspiration, heart hugger noted ABDOMEN: Soft, obese, nontender, nondistended, normoactive bowel sounds. No palpable organomegaly. MUSCULOSKELETAL: No joint swelling or deformity. EXTREMITIES: No cyanosis, clubbing, or pedal edema. Mild edema noted of the upper and lower extremities, lower EXTR chronic NEUROLOGICAL: Gross neurological examination did not reveal any focal deficits. Diffusely weak SKIN: No rashes. Assessment: Status postcardiac catheterization 03/23/2025 revealing triple-vessel disease with significant disease of the distal left main, ostium of the RCA and proximal LAD, as well as proximal left circumflex, status post CABG 03/25/2025. With CT surgery History of atrial fibrillation, new onset in December 2024 History of asthma, not in exacerbation Diabetes mellitus, type II GERD Sebaceous cyst under left breast, present on admission with no signs of cellulitis or infection Hyperlipidemia Hypertension Obesity with a BMI of 38.1 History of previous IBS, resolved GI prophylaxis DVT prophylaxis Full code Plan: Patient is currently in the ICU status post CABG with MONTEMAYOR to the LAD, currently sitting up in the chair Encourage incentive spirometer use at least 10 times every hour while awake Recommend continued PT/OT therapy per protocol Patient has been transitioned to sliding scale insulin with accuchecks [id number] with close monitoring of blood sugar and further adjustments to be made if needed. Resume home sitagliptin Continue with chest tubes and follow-up chest x-ray in a.m. Monitor hemoglobin closely along with platelets and transfuse if needed We will continue to follow with CT surgery during hospitalization. The impression and plan of care has been dictated by Brianne Chandler, Nurse Practitioner as directed. Dr. Jazmyne MD I have performed a history and examination and MDM of this patient, discussed the same with the dictator, and agree with the dictator's assessment and plan as written ,documented as a scribe. Based on total visit time, I have performed more than 50% of the visit. Objective - Vital Signs Vital signs: Vital Signs Temp 98.2 F 03/28/25 04:00 Pulse 70 03/28/25 04:00 Resp 16 03/28/25 04:00 BP 114/71 03/28/25 04:00 Pulse Ox 95 03/28/25 04:00 FiO2 40 03/25/25 16:38 Intake & Output 03/27/25 03/28/25 03/28/25 18:59 06:59 18:59 Intake Total 324.145 200 Output Total 275 Balance 49.145 200 Weight 105.6 kg Intake: IV 78 Pressure Bag 18 Sodium Chloride 0.9% 1, 60 000 ml @ 20 mls/hr IV . Q24H LINUS Rx#:[id number] Intake, IV Titration 6.145 Amount Insulin Regular 100 unit 6.145 In Sodium Chloride 0.9% 100 ml @ Per Protocol IV .Q0M LINUS Rx#:[id number] Oral 240 200 Output: Chest Tube Drainage 20 Left Pleural Chest Tube 20 Urine 255 Other: Voiding Method Indwelling Catheter Toilet # Voids 1 1 # Bowel Movements 1 ABP, PAP, CO, CI - Last Documented Arterial Blood Pressure 137/39 Pulmonary Artery Pressure 39/13 Cardiac Output 3.9 Cardiac Index 1.9 - Labs CBC & Chem 7: 03/28/25 06:10 03/28/25 06:10 Labs: Abnormal Lab Results - Last 24 Hours (Table) 03/27/25 03/27/25 03/27/25 Range/Units 11:49 16:12 19:54 WBC (4.50-10.00) 10*3/uL RBC (4.10-5.20) 10*6/uL Hgb (12.0-15.0) g/dL Hct (37.2-46.3) % MCHC (32.0-37.0) g/dL Immature Gran # (0.00-0.04) 10*3/uL Neutrophils # (1.80-7.70) 10*3/uL Monocytes # (0.20-1.00) 10*3/uL Eosinophils # (0.04-0.35) 10*3/uL Sodium (137-145) mmol/L BUN (7-17) mg/dL Creatinine (0.52-1.04) mg/dL Glucose (74-99) mg/dL POC Glucose (mg/dL) 152 H 187 H 150 H (70-110) mg/dL AST (14-36) U/L Total Protein (6.3-8.2) g/dL Albumin (3.5-5.0) g/dL 03/28/25 03/28/25 03/28/25 Range/Units 05:53 06:10 06:10 WBC 18.60 H (4.50-10.00) 10*3/uL RBC 2.82 L (4.10-5.20) 10*6/uL Hgb 7.8 L (12.0-15.0) g/dL Hct 25.0 L (37.2-46.3) % MCHC 31.2 L (32.0-37.0) g/dL Immature Gran # 0.14 H (0.00-0.04) 10*3/uL Neutrophils # 15.38 H (1.80-7.70) 10*3/uL Monocytes # 1.36 H (0.20-1.00) 10*3/uL Eosinophils # 0.02 L (0.04-0.35) 10*3/uL Sodium 135 L (137-145) mmol/L BUN 40 H (7-17) mg/dL Creatinine 1.84 H (0.52-1.04) mg/dL Glucose 131 H (74-99) mg/dL POC Glucose (mg/dL) 156 H (70-110) mg/dL AST 44 H (14-36) U/L Total Protein 5.5 L (6.3-8.2) g/dL Albumin 3.3 L (3.5-5.0) g/dL Assessment and Plan Time with Patient: Less than 30
--- NOTE | 2025-03-28 10:17 | P.PN ---
Subjective Progress Note Date: 03/28/25 Principal diagnosis: CABG Pulmonary consult dated March 24, 2025. 75-year-old female who was recently seen by cardiology, and, is apparently going to have CABG, on March 25, 2025. We were consulted, for input regarding her pulmonary status, her mild asthma, and what to anticipate, after surgery. The patient had a cardiac catheterization, on March 23. It showed calcified coronary arteries, significant disease in the distal left main, severe disease in the ostium of the right coronary artery, and proximal LAD, and moderately severe disease in the proximal left circumflex coronary artery. The patient does have a history of mild asthma. She takes an albuterol inhaler only as needed. She is a lifelong non-smoker. Does not really complain much of any lung issues or lung complaints. She denies any coughing, wheezing, chest tightness, or phlegm production. She does have a history of hypertension, hyperlipidemia, atrial fibrillation, diabetes mellitus, type II, recent abnormal stress test, and mild tricuspid valve regurgitation. In addition, she has moderate mitral valve regurgitation, and obesity, as well as GERD, and previous coronavirus infection. Current labs include a white count of 7.9, hemoglobin 12.4, hematocrit 39.1, and a platelet count of 211,000. Sodium 141, potassium 4.7, chlorides 104, CO2 29, anion gap 8, BUN 30, creatinine 1.44. Glucose is 101. The rest of the labs within normal. Cholesterol was 128. TSH was normal. Chest x-ray showed no acute cardiopulmonary disease. Chest CT showed no suspicious lung mass or nodule, and no acute cardiopulmonary disease. Progress note dated March 26, 2025. 75-year-old female postop day #1, status post four-vessel bypass surgery. She was extubated yesterday, March time. She is currently on amiodarone 0.5 mg/min, 0.9 saline at 50 cc an hour, and insulin drip at 6.5 units an hour. She continu es on nasal O2 at 4 L. Clinically, she is doing well. She is sitting in the chair next to the hospital bed. Her weaning parameters, and blood gases were excellent, prior to extubation. Current labs include a white count of 10.4, hemoglobin 8.4, hematocrit 25, and platelet count 81,000. Sodium 139, potassium 4.3, chlorides 106, CO2 24, anion gap 9, BUN 22, creatinine 1.13. Glucose is 132. The rest of the labs are reviewed. Chest x-ray shows postsurgical changes, typical status post CABG. Progress note dated March 27, 2025. 75-year-old female postop day #2, status post four-vessel bypass grafting. Today she is seen in the intensive care unit, room 267. She continues on nasal O2 at 3 L. She is getting insulin at 3 units an hour. She get a saline IV at 20 cc an hour, which will be discontinued. Clinically, she is doing well. She is sitting in a chair next to the hospital bed. No specific complaints. Current labs include a white count of 19.6, hemoglobin 8.2, hematocrit 24.6, platelet count of 117,000. Sodium 136, potassium 4.3, chlorides 106, CO2 21, anion gap 9, BUN 27, creatinine 1.45. Glucose is 148. Chest x-ray shows stable postoperative changes. Progress note dated March 28, 2025. 75-year-old female postop day #3, status post four-vessel bypass. The patient is doing well. She is seen today in room 352. She is on room air. No fluids. Current labs include a white count of 18.6, hemoglobin 7.8, hematocrit 25, platelet count 149,000. Sodium 135, potassium 4.9, chlorides 102, CO2 22, anion gap 11, BUN 40, creatinine 1.84. Glucose is 131. Albumin is 3.3. Chest x-ray is improved, and only shows postoperative changes. Clinically, the patient is very stable. She has no specific complaints. She is awake and alert. She continues to use the incentive spirometer. Objective - Vital Signs Vital signs: Vital Signs Temp 98.2 F 03/28/25 04:00 Pulse 70 03/28/25 04:00 Resp 16 03/28/25 04:00 BP 114/71 03/28/25 04:00 Pulse Ox 95 03/28/25 04:00 FiO2 40 03/25/25 16:38 Intake & Output 03/27/25 03/28/25 03/28/25 18:59 06:59 18:59 Intake Total 324.145 200 Output Total 275 200 Balance 49.145 0 Weight 105.6 kg Intake: IV 78 Pressure Bag 18 Sodium Chloride 0.9% 1, 60 000 ml @ 20 mls/hr IV . Q24H [facility] Rx#:[id number] Intake, IV Titration 6.145 Amount Insulin Regular 100 unit 6.145 In Sodium Chloride 0.9% 100 ml @ Per Protocol IV .Q0M [facility]US Rx#:[id number] Oral 240 200 Output: Chest Tube Drainage 20 Left Pleural Chest Tube 20 Urine 255 200 Other: Voiding Method Indwelling Catheter Toilet # Voids 1 1 # Bowel Movements 1 ABP, PAP, CO, CI - Last Documented Arterial Blood Pressure 137/39 Pulmonary Artery Pressure 39/13 Cardiac Output 3.9 Cardiac Index 1.9 - Exam No acute distress, oriented 3. Currently on room air. HEENT examination is grossly unremarkable. Mucous membranes are moist. No oral lesions. Neck supple. Full range of motion. No adenopathy thyromegaly or neck vein distention. Cardiovascular examination reveals regular rhythm rate. S1-S2 normal. No S3 or S4. No discernible murmur noted. Heart sounds are distant. Lungs reveal scattered bilateral rhonchi. No wheezes or crackles. Breath sounds equal. Abdomen soft bowel sounds are heard. No masses or tenderness. Extremities are intact. No cyanosis clubbing or edema. Skin is without rash or lesion. Neurologic examination is brief but nonfocal. - Labs CBC & Chem 7: 03/28/25 06:10 03/28/25 06:10 Labs: Abnormal Lab Results - Last 24 Hours (Table) 03/27/25 03/27/25 03/27/25 Range/Units 11:49 16:12 19:54 WBC (4.50-10.00) 10*3/uL RBC (4.10-5.20) 10*6/uL Hgb (12.0-15.0) g/dL Hct (37.2-46.3) % MCHC (32.0-37.0) g/dL Immature Gran # (0.00-0.04) 10*3/uL Neutrophils # (1.80-7.70) 10*3/uL Monocytes # (0.20-1.00) 10*3/uL Eosinophils # (0.04-0.35) 10*3/uL Sodium (137-145) mmol/L BUN (7-17) mg/dL Creatinine (0.52-1.04) mg/dL Glucose (74-99) mg/dL POC Glucose (mg/dL) 152 H 187 H 150 H (70-110) mg/dL AST (14-36) U/L Total Protein (6.3-8.2) g/dL Albumin (3.5-5.0) g/dL 03/28/25 03/28/25 03/28/25 Range/Units 05:53 06:10 06:10 WBC 18.60 H (4.50-10.00) 10*3/uL RBC 2.82 L (4.10-5.20) 10*6/uL Hgb 7.8 L (12.0-15.0) g/dL Hct 25.0 L (37.2-46.3) % MCHC 31.2 L (32.0-37.0) g/dL Immature Gran # 0.14 H (0.00-0.04) 10*3/uL Neutrophils # 15.38 H (1.80-7.70) 10*3/uL Monocytes # 1.36 H (0.20-1.00) 10*3/uL Eosinophils # 0.02 L (0.04-0.35) 10*3/uL Sodium 135 L (137-145) mmol/L BUN 40 H (7-17) mg/dL Creatinine 1.84 H (0.52-1.04) mg/dL Glucose 131 H (74-99) mg/dL POC Glucose (mg/dL) 156 H (70-110) mg/dL AST 44 H (14-36) U/L Total Protein 5.5 L (6.3-8.2) g/dL Albumin 3.3 L (3.5-5.0) g/dL Assessment and Plan Assessment: Postoperative day #3, S/P four-vessel CABG. Routine postoperative ventilator management, with extubation, on March 25, 2025. Multivessel coronary artery disease, with anticipated CABG, March 25, 2025. History of hypertension. History of hyperlipidemia. History of paroxysmal atrial fibrillation. History of type 2 diabetes mellitus. History of valvular heart disease, with mild tricuspid valve regurgitation, and moderate mitral valve regurgitation. Obesity, with a BMI of 38.1 kg/m. Gastroesophageal reflux disease. Mild intermittent asthma. Lifelong non-smoker. Plan: Plan dated March 24, 2025. The patient is seen today in room 369. We explained to the patient, that we have 2 major roles, after open heart surgery. The first role, is to get the patient extubated from mechanical ventilation. That typically occurs 4 to 6 hours after the patient leaves the operating room. I did explain that sometimes it is less, and sometimes more. Finally, after surgery, and after the patient is extubated, we see the patient on a daily basis, to ensure that the patient does not develop any pneumonia, pleural effusion, atelectasis, collapse, etc. This includes deep breathing, coughing, clearing of secretions, and hourly use of the incentive spirometer. We will continue to follow make recommendations along the way. Prognosis is thought to be good. The patient is a lifelong non- smoker. She does have history of very mild intermittent asthma. Dictation was produced using [employer] software. Please excuse any grammatical, word or spelling errors. Plan dated March 26, 2025. The patient is seen today in room 267. She is sitting in the chair next to the hospital bed. She is awake and alert. No distress. She is postoperative day #1, status post CABG, x 4 vessels. She was extubated yesterday, March 25 with excellent gases, weaning parameters. She continues on amiodarone 0.5 mg/min, and saline at 50 cc an hour. In addition, she is getting insulin drip at 6.5 units an hour. Labs, x-rays, and medications are reviewed. We will continue to follow and make recommendations along the way. Overall prognosis remains guarded. We encouraged the hourly use of the incentive spirometer. We also recommend deep breathing, coughing, and clearing of secretions. Dictation was produced using [employer] software. Please excuse any grammatical, word or spelling errors. Plan dated March 27, 2025. The patient is seen today in room 267. The patient is sitting in a chair next to the hospital bed. She has been weaned down to 2 L of oxygen. Clinically, the patient is doing very well. She has no specific complaints. The patient is on 3 8 units of insulin per hour, and saline at 20 cc an hour, which will be discontinued. Today is postoperative day #2. All labs, x-rays, medications are reviewed. We will continue to follow the patient, make recommendations along the way. Prognosis is thought to be generally good. Dictation was produced using [employer] software. Please excuse any grammatical, word or spelling errors. Plan dated March 28, 2025. The patient is now seen in room 352. She was moved out of the ICU yesterday. She is currently on room air. No IV fluids. Labs, x-rays, and all medications are reviewed. We will continue to follow the patient, make recommendations along the way. Prognosis is thought to be good. We encourage deep breathing, coughing, clearing of secretions. We also recommend that she use the incentive spirometer, every hour while awake. Dictation was produced using [employer] software. Please excuse any grammatical, word or spelling errors. Time with Patient: Less than 30
[2025-03-28 11:20] LABS: Glucose,Whole Blood 191 mg/dL (70-110)
[2025-03-28] MEDS: INSULIN LISPRO (HumaLOG) 100 UNIT/ML 10 mL VL SQ SCH (12:01)
[2025-03-28 16:21] LABS: Glucose,Whole Blood 117 mg/dL (70-110)
[2025-03-28 19:56] LABS: Glucose,Whole Blood 153 mg/dL (70-110)
--- NOTE | 2025-03-28 20:36 | P.PN ---
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 Cavanaugh and underwent cardiac catheterization this morning as she has been having increasing weakness with shortness of breath and intermittent nausea with intermittent chest pain. Cardiac catheterization revealed calcified coronary arteries, significant disease in the distal left main, severe disease in the ostium of the RCA and proximal LAD, and moderate severe disease in the proximal left circumflex. Cardiology consulted CT surgery for evaluation of possible coronary artery bypass grafting. Patient is being admitted to medicine with CT surgery on consult as well as cardiology. Patient follows with Dr. Deluca in the outpatient setting with a past medical history of atrial fibrillation, asthma, diabetes mellitus, GERD, hyperlipidemia, hypertension, IBS, obesity. Patient rarely drinks, denies any smoking and denies illicit drug use. Patient was recently hospitalized over at [facility] in December of this year and was noted to have new onset atrial fibrillation. Patient reports since then she has been having some increasing shortness of breath and finding it difficult to perform activities that has been progressively getting worse over the last few weeks. CT surgery following and patient is being initiated on CABG workup protocol. Will add Accu-Cheks AC and at bedtime along with insulin regimen for now and we will follow-up on repeat labs in the a.m. 03/24/2025 Patient is seen in follow-up today with no acute overnight issues noted. Patient currently undergoing further workup with CT surgery and tentatively scheduled for CABG with Dr. Ellis patient is afebrile no reports of chest pain or shortness of breath. Patient has been tolerating diet and will be n.p.o. at midnight. Continue monitoring blood sugars closely and will continue current insulin regimen. The bedside and encouraged patient to continue using at least 10 times every hour while awake. 03/25/2025 Patient is evaluated in follow-up earlier this morning and is in the OR scheduled to undergo CABG and will await official CT surgery report. 03/26/2025 Patient seen in follow-up status post assisted CABG x 4 with MONTEMAYOR to LAD, currently sitting up in the chair on 4 L with extubated successfully postsurgical yesterday afternoon and tolerating well. Heart hugger is noted and multiple chest tubes along with Arvada's catheter, continued indwelling Escoto catheter and not currently on any pressor support. Patient is on amiodarone and cardiology is following as well. Encouraged incentive spirometer at least 10 times every hour while awake and continued PT/OT therapy. Patient is maintained on insulin drip and will continue as patient does not have much of an appetite with some nausea and not eating much as of yet. White count is 10.42 today, hemoglobin is 8.4, platelets 81, sodium 139, potassium 4.3, BUN 22, creatinine 1.13, liver functions remain elevated Today although trending down nicely. 03/27/2025 Patient is evaluated today in follow up in the ICU. Patient is postoperative CABG x 4. Patient continues with escoto catheter and left sided chest tube. Arvada- Brian catheter has been removed. Patient to be weaned off the insulin gtt today and transition to sliding scale insulin ACHS and resume home sitagliptin daily. Chest xray today reveals mild lower lobe atelectasis and probable small effusions. Patient encouraged to continue using incentive spirometer 10 x an hour while awake. Patient has been passing gas and attempting to have a bowel movement today. White blood cell count 19.63, hgb 8.2, sodium 136, potassium 4.3, BUN 27, creatinine 1.45. LFTS currently trending down and near normal. Patient is afebrile and maintaining oxygen saturations of 95% while on room air. 03/28/2025 Patient is evaluated today in follow up. Has been moved out of the intensive care unit. Chest tube has been removed. Escoto catheter has been removed. Patient has been up ambulating. Has had bowel movement. Transitioned off the insulin gtt and continues on novolog sliding scale insulin. Chest xray today reveals small bilateral pleural effusions minimal bilateral atelectasis which has decreased in the interval. White blood cell count today 18.60, hgb 7.8, sodium 135, BUN 40, creatinine 1.84. LFTs continue to trend down. Review of systems: Constitutional: reports of fatigue, no fever, or chills Cardiovascular: No reports of chest pain or palpitations, reports chest wall pain Respiratory: reports of shortness of breath and pain with deep inspiration GI: No reports of nausea, vomiting, or diarrhea, reports not much of an appetite : No reports of dysuria or retention, Neurovascular: reports of significant weakness All medications have been reviewed PHYSICAL EXAMINATION: GENERAL: The patient is lethargic although easily arousable, in alert and oriented x3, not in any acute distress. Well developed, elderly appearing, morbidly obese, sitting up in the chair HEENT: Pupils are round and equally reacting to light. EOMI. No scleral icterus. No conjunctival pallor. Normocephalic, atraumatic. No pharyngeal erythema. No thyromegaly. CARDIOVASCULAR: S1 and S2 muffled, irregular A-fib on the monitor PULMONARY: Very diminished breath sounds bilaterally otherwise chest is clear to auscultation, no wheezing or crackles. Weak inspiration, heart hugger noted ABDOMEN: Soft, obese, nontender, nondistended, normoactive bowel sounds. No palpable organomegaly. MUSCULOSKELETAL: No joint swelling or deformity. EXTREMITIES: No cyanosis, clubbing, or pedal edema. Mild edema noted of the upper and lower extremities, lower EXTR chronic NEUROLOGICAL: Gross neurological examination did not reveal any focal deficits. Diffusely weak SKIN: No rashes. Assessment: Status postcardiac catheterization 03/23/2025 revealing triple-vessel disease with significant disease of the distal left main, ostium of the RCA and proximal LAD, as well as proximal left circumflex, status post CABG 03/25/2025. With CT surgery Leukocytosis Mild YOHAN History of atrial fibrillation, new onset in December 2024 History of asthma, not in exacerbation Diabetes mellitus, type II GERD Sebaceous cyst under left breast, present on admission with no signs of cellulitis or infection Hyperlipidemia Hypertension Obesity with a BMI of 38.1 History of previous IBS, resolved GI prophylaxis DVT prophylaxis Full code Plan: Patient is currently in the ICU status post CABG with MONTEMAYOR to the LAD, currently sitting up in the chair Encourage incentive spirometer use at least 10 times every hour while awake Recommend continued PT/OT therapy per protocol Patient has been transitioned to sliding scale insulin with accuchecks [id number] with close monitoring of blood sugar and further adjustments to be made if needed. Resume home sitagliptin Continue daily chest xrays Monitor hemoglobin closely along with platelets and transfuse if needed We will continue to follow with CT surgery during hospitalization. The impression and plan of care has been dictated by Brianne Chandler, Nurse Practitioner as directed. Dr. Jazmyne MD I have performed a history and examination and MDM of this patient, discussed the same with the dictator, and agree with the dictator's assessment and plan as written ,documented as a scribe. Based on total visit time, I have performed more than 50% of the visit. Objective - Vital Signs Vital signs: Vital Signs Temp 98.1 F 03/28/25 16:11 Pulse 80 03/28/25 16:11 Resp 16 03/28/25 16:11 BP 130/71 03/28/25 16:11 Pulse Ox 96 03/28/25 16:11 FiO2 40 03/25/25 16:38 Intake & Output 03/28/25 03/28/25 03/29/25 06:59 18:59 06:59 Intake Total 440 Output Total 350 Balance 90 Weight 105.6 kg Intake: Oral 440 Output: Urine 350 Other: Voiding Method Toilet Toilet # Voids 1 1 # Bowel Movements 1 ABP, PAP, CO, CI - Last Documented Arterial Blood Pressure 137/39 Pulmonary Artery Pressure 39/13 Cardiac Output 3.9 Cardiac Index 1.9 - Labs CBC & Chem 7: 03/28/25 06:10 03/28/25 06:10 Labs: Abnormal Lab Results - Last 24 Hours (Table) 03/28/25 03/28/25 03/28/25 Range/Units 05:53 06:10 06:10 WBC 18.60 H (4.50-10.00) 10*3/uL RBC 2.82 L (4.10-5.20) 10*6/uL Hgb 7.8 L (12.0-15.0) g/dL Hct 25.0 L (37.2-46.3) % MCHC 31.2 L (32.0-37.0) g/dL Immature Gran # 0.14 H (0.00-0.04) 10*3/uL Neutrophils # 15.38 H (1.80-7.70) 10*3/uL Monocytes # 1.36 H (0.20-1.00) 10*3/uL Eosinophils # 0.02 L (0.04-0.35) 10*3/uL Sodium 135 L (137-145) mmol/L BUN 40 H (7-17) mg/dL Creatinine 1.84 H (0.52-1.04) mg/dL Glucose 131 H (74-99) mg/dL POC Glucose (mg/dL) 156 H (70-110) mg/dL AST 44 H (14-36) U/L Total Protein 5.5 L (6.3-8.2) g/dL Albumin 3.3 L (3.5-5.0) g/dL 03/28/25 03/28/25 03/28/25 Range/Units 11:19 16:19 19:53 WBC (4.50-10.00) 10*3/uL RBC (4.10-5.20) 10*6/uL Hgb (12.0-15.0) g/dL Hct (37.2-46.3) % MCHC (32.0-37.0) g/dL Immature Gran # (0.00-0.04) 10*3/uL Neutrophils # (1.80-7.70) 10*3/uL Monocytes # (0.20-1.00) 10*3/uL Eosinophils # (0.04-0.35) 10*3/uL Sodium (137-145) mmol/L BUN (7-17) mg/dL Creatinine (0.52-1.04) mg/dL Glucose (74-99) mg/dL POC Glucose (mg/dL) 191 H 117 H 153 H (70-110) mg/dL AST (14-36) U/L Total Protein (6.3-8.2) g/dL Albumin (3.5-5.0) g/dL Assessment and Plan Time with Patient: Less than 30
--- NOTE | 2025-03-28 23:12 | P.PN ---
Subjective Progress Note Date: 03/28/25 HISTORY OF PRESENTING ILLNESS: 77-year-old follows up with Dr. Cavanaugh. History of hypertension dyslipidemia paroxysmal atrial fibrillation anticoagulation with Xarelto. Type 2 diabetes. As an outpatient because of symptoms of palpitations and nonspecific symptoms of decreased exercise capacity increased fatigue shortness of breath she had a stress test done which was abnormal showing large reversible perfusion defect in inferior and inferoapical segments.. For this she underwent cardiac catheteriz ation which showed 50 to 60% distal left main, 95% LAD after first septal takeoff, second annular branch had 50 to 60% ostial stenosis, 70% stenosis in proximal LCx, 99% stenosis in ostium of RCA. Due to multivessel disease, CT surgery team was requested to evaluate the patient for possible CABG . At the time of evaluation she is comfortable denies any active chest pain chest pressure shortness of breath. Right radial site appears intact with no signs of hematoma or bleeding, intact radial pulse. Labs and vitals were essentially within acceptable range ..................................... ................................................................................ ......................... [facility] Vitals: 145/80, heart rate 59 [facility] Labs: Hb 12.5, BUN 32, creatinine 1.6, repeat creatinine 1.4, A1c of 6.5, LDL 31, HDL 53, TG G212, TSH 2.6 ....................................... ................................................................................ ....................... Prior cardiac testing: Echo EF 55%, mild concentric LVH, aortic sclerosis, mild to moderate mitral regurgitation, cardiac catheterization showed 50 to 60% distal left main, 95% LAD after first s eptal takeoff, second annular branch had 50 to 60% ostial stenosis, 70% stenosis in proximal LCx, 99% stenosis in ostium of RCA ........................................................................ ...................................................................... Progress note 03/25/2025 Seen and examined at bedside. She will go for open heart surgery today. Hemodynamically stable. 03/26/2025 Seen and examined at bedside. Yesterday night she was extubated. This morning she is on 4 L, saturating in the high 90s, 500 mL on incentive spirometer Labile blood pressure, Perry-Brian right art line, mediastinal and left pleural chest tubes are in place. Ambulated in the room with physical therapy. 03/27/2025 Perry-Brian catheter is out, chest tubes are out, to sinus rhythm on telemetry, no heart blocks or any atrial fibrillation noticed Beta-zhane was increased. Blood pressure and heart rate are within acceptable ranges BP 129/55, heart rate 71 03/28/2025 Seen and examined at bedside this a.m., transfer out of ICU to telemetry floor Hemodynamically stable, mildly hypervolemic. Got 20 mg IV Lasix yesterday but none today. Will reevaluate tomorrow may need a dose tomorrow. Coming along well, has appetite, good incentive spirometer use, ambulating in the room Sinus rhythm on telemetry heart rate around 76, BP around 110s systolic ............................................... ................................................................................ ............... PHYSICAL EXAMINATION: Neck: Brisk carotid upstroke, no jugular venous distention. Lungs: Mild crackles audible. Diminished air entry, poor inspiratory effort, chest tube in place with excellent tube in place. Heart: Regular rate and rhythm, S1-S2, no significant murmur Abdomen: Soft nontender, positive bowel sounds. Extremities: No edema, intact distal pulses. Neuro: Alert, oritented, no focal deficits. Detailed neuro exam was not performed. ........................................................ ................................................................................ ...... ASSESSMENT: # Multivessel CAD status post four-vessel CABG status post Arshad-Maze procedure, left atrial appendage ligation # Prior history of paroxysmal A-fib # Type 2 diabetes # Essential hypertension, dyslipidemia # Obesity # Moderate MR PLAN: Continue aspirin statin Plavix metoprolol 25 twice daily On amiodarone 400 twice daily, Patient has been transferred out of ICU to telemetry floor Will continue to follow Objective - Vital Signs Vital signs: Vital Signs Temp 97.6 F 03/28/25 20:00 Pulse 81 03/28/25 20:42 Resp 18 03/28/25 20:42 BP 119/68 03/28/25 20:00 Pulse Ox 94 L 03/28/25 20:00 FiO2 40 03/25/25 16:38 Intake & Output 03/28/25 03/28/25 03/29/25 06:59 18:59 06:59 Intake Total 440 Output Total 350 100 Balance 90 -100 Weight 105.6 kg Intake: Oral 440 Output: Urine 350 100 Other: Voiding Method Toilet Toilet # Voids 1 1 # Bowel Movements 1 ABP, PAP, CO, CI - Last Documented Arterial Blood Pressure 137/39 Pulmonary Artery Pressure 39/13 Cardiac Output 3.9 Cardiac Index 1.9 - Labs CBC & Chem 7: 03/28/25 06:10 03/28/25 06:10 Labs: Abnormal Lab Results - Last 24 Hours (Table) 03/28/25 03/28/25 03/28/25 Range/Units 05:53 06:10 06:10 WBC 18.60 H (4.50-10.00) 10*3/uL RBC 2.82 L (4.10-5.20) 10*6/uL Hgb 7.8 L (12.0-15.0) g/dL Hct 25.0 L (37.2-46.3) % MCHC 31.2 L (32.0-37.0) g/dL Immature Gran # 0.14 H (0.00-0.04) 10*3/uL Neutrophils # 15.38 H (1.80-7.70) 10*3/uL Monocytes # 1.36 H (0.20-1.00) 10*3/uL Eosinophils # 0.02 L (0.04-0.35) 10*3/uL Sodium 135 L (137-145) mmol/L BUN 40 H (7-17) mg/dL Creatinine 1.84 H (0.52-1.04) mg/dL Glucose 131 H (74-99) mg/dL POC Glucose (mg/dL) 156 H (70-110) mg/dL AST 44 H (14-36) U/L Total Protein 5.5 L (6.3-8.2) g/dL Albumin 3.3 L (3.5-5.0) g/dL 03/28/25 03/28/25 03/28/25 Range/Units 11:19 16:19 19:53 WBC (4.50-10.00) 10*3/uL RBC (4.10-5.20) 10*6/uL Hgb (12.0-15.0) g/dL Hct (37.2-46.3) % MCHC (32.0-37.0) g/dL Immature Gran # (0.00-0.04) 10*3/uL Neutrophils # (1.80-7.70) 10*3/uL Monocytes # (0.20-1.00) 10*3/uL Eosinophils # (0.04-0.35) 10*3/uL Sodium (137-145) mmol/L BUN (7-17) mg/dL Creatinine (0.52-1.04) mg/dL Glucose (74-99) mg/dL POC Glucose (mg/dL) 191 H 117 H 153 H (70-110) mg/dL AST (14-36) U/L Total Protein (6.3-8.2) g/dL Albumin (3.5-5.0) g/dL
[2025-03-29 00:40] VITALS: RESP 16
[2025-03-29 02:16] LABS: Glucose,Whole Blood 152 mg/dL (70-110)
[2025-03-29 05:13] LABS: HCT 23.5 % (37.2-46.3); HGB 7.6 g/dL (12.0-15.0); MCH 28.5 pg (27.0-32.0); MCHC 32.3 g/dL (32.0-37.0); MCV 88.0 fL (80.0-97.0); Platelet Count 181 10*3/uL (140-440); RBC 2.67 10*6/uL (4.10-5.20); RDW 15.5 % (11.5-14.5); WBC 16.46 10*3/uL (4.50-10.00)
[2025-03-29 05:27] LABS: African American GFR (CKD) 32 (>60 ml/min/1.73 sqM); Anion Gap 11 mmol/L; Blood Urea Nitrogen 53 mg/dL (7-17); Calcium 8.8 mg/dL (8.4-10.2); Carbon Dioxide 22 mmol/L (22-30); Chloride 98 mmol/L (98-107); Glucose 125 mg/dL (74-99); Magnesium 2.6 mg/dL (1.6-2.3); Non-African American GFR(CKD) 28 (>60 ml/min/1.73 sqM); Potassium 4.8 mmol/L (3.5-5.1); Sodium 131 mmol/L (137-145)
[2025-03-29 06:02] LABS: Glucose,Whole Blood 150 mg/dL (70-110)
--- NOTE | 2025-03-29 07:21 | P.PN ---
Subjective Progress Note Date: 03/29/25 Principal diagnosis: Multivessel coronary artery disease with left main disease, stable angina, acute kidney injury. Previous medical history of hypertension, hyperlipidemia, paro xysmal atrial fibrillation on Xarelto for anticoagulation outpatient, mild to moderate mitral valve regurgitation, diabetes mellitus type 2, obesity, gastroesophageal reflux disease, asthma, COVID in 2020, and lifelong non-smoker. Preoperative boil to right lateral chest as well as sebaceous cyst under left breast POD #4 pump assisted beating heart CABG x 4 with MONTEMAYOR to LAD, saphenous vein graft to second diagonal, obtuse marginal, PDA, modified Arshad-Maze procedure with bilateral pulmonary vein ablation and occlusion of the left atrial appendage with 35 mm AtriCure clip Postoperative acute blood loss anemia and thrombocytopenia, expected given hemodilution and pump assist The patient was seen and examined this morning sitting up in recliner on the cardiac stepdown unit in no acute distress. States pain is controlled on current medication regimen, denies shortness of breath. Remains in sinus rhythm, hemodynamically stable. Currently on room air with oxygen saturation in the high 90s, able to achieve 750-1000 mL on her incentive spirometry. Chest x- ray, labs reviewed. Patient did ambulate in the hallway three times yesterday, received first post op shower yesterday. Would like to go home today. Objective - Vital Signs Vital signs: Vital Signs Temp 98.2 F 03/29/25 03:53 Pulse 95 03/29/25 03:53 Resp 16 03/29/25 03:53 BP 113/70 03/29/25 03:53 Pulse Ox 97 03/29/25 03:53 FiO2 40 03/25/25 16:38 Intake & Output 03/28/25 03/29/25 03/29/25 18:59 06:59 18:59 Intake Total 440 120 Output Total 350 300 Balance 90 -180 Weight 107.3 kg Intake: Oral 440 120 Output: Urine 350 300 Other: Voiding Method Toilet Toilet # Voids 1 # Bowel Movements 1 ABP, PAP, CO, CI - Last Documented Arterial Blood Pressure 137/39 Pulmonary Artery Pressure 39/13 Cardiac Output 3.9 Cardiac Index 1.9 - Exam CONSTITUTIONAL: Appears comfortable, cooperative, no acute distress RESPIRATORY: Lungs sounds diminished in the bases bilaterally. Respirations even, nonlabored. Currently on room air with oxygen saturation 97%. Able to achieve 750-1000 mL on incentive spirometry. Strong cough. CARDIOVASCULAR: S1, S2 present. Regular rate and rhythm, sinus rhythm on telemetry. Sternum stable. Palpable peripheral pulses bilaterally. Bilateral lower extremity edema present. No calf pain or tenderness noted. Heart hugger in place with patient demonstrating appropriate use. Antiembolism stockings, SCDs present. GASTROINTESTINAL: Abdomen soft, nontender, nondistended. Active bowel sounds present 4 quadrants. Tolerating minimal diet. Positive bowel movement 03/28 GENITOURINARY: Continues to void INTEGUMENTARY: Skin is warm and dry. Anterior chest incision well approximated. Left lower extremity EVH site well approximated. Boil to right lateral chest cleaned out in the surgery and packed daily with iodoform gauze. Cyst under left breast covered with dry dressing NEUROLOGIC: Cranial nerves II through XII intact MUSKULOSKELETAL: Able to move all extremities, strength equal bilaterally PSYCHIATRIC: Alert and oriented to person place and time, appropriate affect, intact judgment and insight - Allied health notes Allied health notes reviewed: nursing - Labs CBC & Chem 7: 03/29/25 04:04 03/29/25 04:04 Labs: Abnormal Lab Results - Last 24 Hours (Table) 03/28/25 03/28/25 03/28/25 Range/Units 06:10 06:10 11:19 WBC 18.60 H (4.50-10.00) 10*3/uL RBC 2.82 L (4.10-5.20) 10*6/uL Hgb 7.8 L (12.0-15.0) g/dL Hct 25.0 L (37.2-46.3) % MCHC 31.2 L (32.0-37.0) g/dL Immature Gran # 0.14 H (0.00-0.04) 10*3/uL Neutrophils # 15.38 H (1.80-7.70) 10*3/uL Monocytes # 1.36 H (0.20-1.00) 10*3/uL Eosinophils # 0.02 L (0.04-0.35) 10*3/uL Sodium 135 L (137-145) mmol/L BUN 40 H (7-17) mg/dL Creatinine 1.84 H (0.52-1.04) mg/dL Glucose 131 H (74-99) mg/dL POC Glucose (mg/dL) 191 H (70-110) mg/dL Magnesium (1.6-2.3) mg/dL AST 44 H (14-36) U/L Total Protein 5.5 L (6.3-8.2) g/dL Albumin 3.3 L (3.5-5.0) g/dL 03/28/25 03/28/25 03/29/25 Range/Units 16:19 19:53 02:15 WBC (4.50-10.00) 10*3/uL RBC (4.10-5.20) 10*6/uL Hgb (12.0-15.0) g/dL Hct (37.2-46.3) % MCHC (32.0-37.0) g/dL Immature Gran # (0.00-0.04) 10*3/uL Neutrophils # (1.80-7.70) 10*3/uL Monocytes # (0.20-1.00) 10*3/uL Eosinophils # (0.04-0.35) 10*3/uL Sodium (137-145) mmol/L BUN (7-17) mg/dL Creatinine (0.52-1.04) mg/dL Glucose (74-99) mg/dL POC Glucose (mg/dL) 117 H 153 H 152 H (70-110) mg/dL Magnesium (1.6-2.3) mg/dL AST (14-36) U/L Total Protein (6.3-8.2) g/dL Albumin (3.5-5.0) g/dL 03/29/25 03/29/25 03/29/25 Range/Units 04:04 04:04 06:01 WBC 16.46 H (4.50-10.00) 10*3/uL RBC 2.67 L (4.10-5.20) 10*6/uL Hgb 7.6 L (12.0-15.0) g/dL Hct 23.5 L (37.2-46.3) % MCHC (32.0-37.0) g/dL Immature Gran # (0.00-0.04) 10*3/uL Neutrophils # (1.80-7.70) 10*3/uL Monocytes # (0.20-1.00) 10*3/uL Eosinophils # (0.04-0.35) 10*3/uL Sodium 131 L (137-145) mmol/L BUN 53 H (7-17) mg/dL Creatinine 1.76 H (0.52-1.04) mg/dL Glucose 125 H (74-99) mg/dL POC Glucose (mg/dL) 150 H (70-110) mg/dL Magnesium 2.6 H (1.6-2.3) mg/dL AST (14-36) U/L Total Protein (6.3-8.2) g/dL Albumin (3.5-5.0) g/dL - Imaging and Cardiology Chest x-ray: image reviewed Assessment and Plan Assessment: Multivessel coronary artery disease with left main disease, stable angina status post four-vessel CABG Preoperative acute kidney injury Preoperative boil to right lateral chest as well as sebaceous cyst under left breast Postoperative acute blood loss anemia and thrombocytopenia, expected given hemodilution and pump assist History of hypertension Hyperlipidemia Paroxysmal atrial fibrillation on Xarelto for anticoagulation outpatient, status post modified Arshad-Maze and left atrial appendage ligation Mild to moderate mitral valve regurgitation Diabetes mellitus type 2, hemoglobin A1c 6.5% Obesity Gastroesophageal reflux disease Asthma COVID in 2020 Lifelong non-smoker, preoperative FEV1 94% predicted Plan: Continue to maximize medical therapy with aspirin, statin, Plavix, beta-zhane. Will increase beta-zhane therapy as tolerated Continue amiodarone for atrial fibrillation prophylaxis. Patient currently using normal sinus rhythm. No anticoagulation at this time Encourage incentive spirometry use 10 times every hour while awake, bronchodilators per pulmonology Will monitor daily labs and x-rays. Electrolyte replacement per protocol Increase activity, ambulate as tolerated. PT/OT/cardiac rehab consulted GI/DVT prophylaxis Insulin management per internal medicine Pain control per current medication regimen. No Toradol due to kidney disease Monitor and record strict accurate intake and output Daily weights Shower daily Continue to treat sebaceous cyst under left breast with mupirocin and daily dressing change per nursing Continue to clean and pack with iodoform gauze boil area to right lateral chest per BUSINESS CONTINUITY MANAGER Discharge planning in progress, anticipate discharge to home with home care later today vs tomorrow More recommendations to follow as patient progresses
--- NOTE | 2025-03-29 08:30 | XR ---
EXAMINATION TYPE: XR chest 2V DATE OF EXAM: 03/29/2025 6:15 AM COMPARISON: 03/28/2025 CLINICAL INDICATION: Female, 75 years old with history of Post open heart, , TECHNIQUE: PA and lateral views FINDINGS: Median sternotomy wires are present. Heart borderline in size. Interstitial densities. Hazy and patch y bibasilar opacities. Blunted bilateral costophrenic angles. IMPRESSION: Similar mild pulmonary vascular congestion. Ongoing small pleural effusions with adjacent atelectasis and/or consolidation. [facility], Workstation: [email or web address], 03/29/2025 8:27 AM
[2025-03-29] MEDS: FUROSEMIDE 10 MG/ML 2 ML VIAL IV ONE (10:04)
[2025-03-29] MEDS: CEPHALEXIN 500 MG CAP PO SCH (10:04)
[2025-03-29 11:33] VITALS: BP 103/65; PULSE 94; TEMP 97.8
[2025-03-29 11:58] LABS: Glucose,Whole Blood 143 mg/dL (70-110)
--- NOTE | 2025-03-29 13:03 | P.PN ---
Subjective Progress Note Date: 03/29/25 INTERVAL HISTORY: This is a pleasant 75-year-old lady who follows with Dr. Cavanaugh. She has a history of hypertension, hyperlipidemia, atrial fibrillation, anticoagulated on Xarelto, type 2 diabetes, and CAD. She is status post CABG x 4 with MONTEMAYOR to LAD, SVG to second diagonal, OM, PDA, modified Arshad-Maze procedure with bilateral pulmonary vein ablation and occlusion of the left atrial appendage with 35mm AtriCure clip. PHYSICAL EXAMINATION: HEART: Irregular rate and rhythm, S1, S2 normal. LUNGS: Lungs reveal faint bibasilar crackles NECK: Supple. No JVD. ABDOMEN: Soft. Nontender EXTREMITIES: 2+ peripheral pulses. Minimal lower extremity edema FINAL IMPRESSION: 1. Multivessel CAD status post four-vessel CABG 2. Atrial fibrillation, paroxysmal, currently in atrial fibrillation 3. Hypertension 4. Hyperlipidemia 5. Diabetes PLAN: From cardiology's perspective patient may be discharged home. She will be discharged home on Xarelto as well as either aspirin or Plavix. She will follow-up in the office in about a week. PIER WORKER note has been reviewed, I agree with a documented findings and plan of care. Patient was seen and examined. Objective - Vital Signs Vital signs: Vital Signs Temp 97.8 F 03/29/25 11:32 Pulse 94 03/29/25 11:32 Resp 16 03/29/25 11:32 BP 103/65 03/29/25 11:32 Pulse Ox 96 03/29/25 11:32 FiO2 40 03/25/25 16:38 Intake & Output 03/28/25 03/29/25 03/29/25 18:59 06:59 18:59 Intake Total 440 120 Output Total 350 300 875 Balance 90 -180 -875 Weight 107.3 kg Intake: Oral 440 120 Output: Urine 350 300 875 Other: Voiding Method Toilet Toilet # Voids 1 2 # Bowel Movements 1 ABP, PAP, CO, CI - Last Documented Arterial Blood Pressure 137/39 Pulmonary Artery Pressure 39/13 Cardiac Output 3.9 Cardiac Index 1.9 - Labs CBC & Chem 7: 03/29/25 04:04 03/29/25 04:04 Labs: Abnormal Lab Results - Last 24 Hours (Table) 03/28/25 03/28/25 03/29/25 Range/Units 16:19 19:53 02:15 WBC (4.50-10.00) 10*3/uL RBC (4.10-5.20) 10*6/uL Hgb (12.0-15.0) g/dL Hct (37.2-46.3) % Sodium (137-145) mmol/L BUN (7-17) mg/dL Creatinine (0.52-1.04) mg/dL Glucose (74-99) mg/dL POC Glucose (mg/dL) 117 H 153 H 152 H (70-110) mg/dL Magnesium (1.6-2.3) mg/dL 03/29/25 03/29/25 03/29/25 Range/Units 04:04 04:04 06:01 WBC 16.46 H (4.50-10.00) 10*3/uL RBC 2.67 L (4.10-5.20) 10*6/uL Hgb 7.6 L (12.0-15.0) g/dL Hct 23.5 L (37.2-46.3) % Sodium 131 L (137-145) mmol/L BUN 53 H (7-17) mg/dL Creatinine 1.76 H (0.52-1.04) mg/dL Glucose 125 H (74-99) mg/dL POC Glucose (mg/dL) 150 H (70-110) mg/dL Magnesium 2.6 H (1.6-2.3) mg/dL 03/29/25 Range/Units 11:56 WBC (4.50-10.00) 10*3/uL RBC (4.10-5.20) 10*6/uL Hgb (12.0-15.0) g/dL Hct (37.2-46.3) % Sodium (137-145) mmol/L BUN (7-17) mg/dL Creatinine (0.52-1.04) mg/dL Glucose (74-99) mg/dL POC Glucose (mg/dL) 143 H (70-110) mg/dL Magnesium (1.6-2.3) mg/dL
--- NOTE | 2025-03-29 14:15 | P.DS ---
Providers Date of admission: 03/23/25 05:40 Expected date of discharge: 03/29/25 Attending physician: James Ellis Consults: 03/23/25 08:16 Consult Physician Routine Consulting Provider: James Ellis Consult Reason/Comments: cabg Do you want consulting provider notified?: Already Contacted 03/23/25 10:51 Consult to Anesthesia Routine Consulting Provider: Anesthesia,Services Consult Reason/Comments: Cardiac Surgery Pre-Op 03/23/25 13:23 Consult Physician Routine Consulting Provider: Sidney Gomez Consult Reason/Comments: Preoperative cardiac surgery Do you want consulting provider notified?: Yes, Notify in am 03/23/25 14:26 Consult Physician Routine Consulting Provider: Garrett Cavanaugh Consult Reason/Comments: triple vessel disease on cath, known, evaluating for CABG Do you want consulting provider notified?: Yes 03/25/25 13:46 Consult Physician Routine Consulting Provider: Rosalba Samano Consult Reason/Comments: insulin management Do you want consulting provider notified?: Already Contacted Primary care physician: Awilda Shore Hospital Course: FINAL DIAGNOSIS: Multivessel coronary artery disease with left main disease, stable angina Preoperative acute kidney injury Preoperative boil to right lateral chest as well as sebaceous cyst under left breast Postoperative acute blood loss anemia and thrombocytopenia, expected given hemodilution and pump assist History of hypertension Hyperlipidemia Paroxysmal atrial fibrillation on Xarelto for anticoagulation outpatient Mild to moderate mitral valve regurgitation Diabetes mellitus type 2, hemoglobin A1c 6.5% Obesity Gastroesophageal reflux disease Asthma COVID in 2019 Lifelong non-smoker, preoperative FEV1 94% predicted PRINCIPAL PROCEDURE: Pump assisted beating heart CABG x 4 with MONTEMAYOR to LAD, saphenous vein graft to second diagonal, obtuse marginal, PDA Modified Arshad-Maze procedure with bilateral pulmonary vein ablation Occlusion of the left atrial appendage with 35 mm AtriCure clip HISTORY OF PRESENT ILLNESS: This is a 75-year-old female who follows outpatient with Dr. Shore for internal medicine and Dr. Cavanaugh for cardiology. She was hospitalized in December 2024 for 4 days due to atrial fibrillation with rapid ventricular response. During follow-up after discharge she underwent a nuclear stress test which was abnormal with a large size area of stress-induced ischemia involving the inferior and inferoapical wall with segmental wall motion abnormality in the inferobasal wall consistent with stress-induced ischemia in the right coronary artery territory. The patient reported she had been having complaints of chest pressure/pain with activity off and on since July 2024, along with shortness of breath, nausea and fatigue. She had a transthoracic 2D echocardiogram in the cardiology office revealing normal left ventricular systolic function with EF 55-60%, moderate mitral valve regurgitation, mild tricuspid valve regurgitation and trace to mild pulmonic valve regurgitation. The patient was recommended to undergo cardiac catheterization which was completed by Dr. Cavanaugh revealing calcified coronary arteries with 50-60% stenosis to her distal left main coronary artery, 95% stenosis to her left anterior descending coronary artery after the takeoff of the first septal mobile ui designer, second diagonal branch proximally with 50-60% ostial stenosis, 60 to 70% stenosis to her proximal left circumflex coronary artery, and 99% stenosis to the ostium of the right coronary artery. Consultation was placed to Dr. Ellis from cardiothoracic surgery for revascularization recommendations. She was recommended to undergo surgical myocardial revascularization. The usual perioperative course was discussed in detail with the patient and her family, all risks and benefits were explained, all questions were answered, and consent was obtained to proceed with surgery. The patient was kept inpatient due to the nature of her disease process. HOSPITAL COURSE: The patient was brought to the preoperative area 03/25/25, prepared in the usual fashion, and subsequently taken to the operating room where Dr. Ellis performed pump assisted beating heart CABG x 4. Upon completion of surgery the patient was transferred to the cardiovascular intensive care unit where she was recovered and monitored hemodynamically. She was extubated, all lines, tubes, and drips were discontinued when appropriate, and she was transferred to 3 S. cardiac stepdown unit for further monitoring and rehabilitation. Her oxygen was titrated down, she continued to work with physic al and occupational therapy, she was tolerating oral diet, her pain was controlled, and she was ready to be discharged to home with [facility] on postoperative day #4. She received written and verbal instruction regarding her medications, activity restrictions, signs and symptoms requiring physician notification, and follow-up appointments. Patient Condition at Discharge: Stable Plan - Discharge Summary Discharge Rx Participant: No New Discharge Prescriptions: New Aspirin 81 mg PO DAILY #30 tab Cephalexin [Keflex] 500 mg PO BID #14 cap Metoprolol Tartrate [Lopressor] 25 mg PO BID #60 tab Pantoprazole [Protonix] 40 mg PO AC-BRKFST #30 tab Ascorbic Acid [Vitamin C] 500 mg PO BID-W/MEALS #14 tab Mupirocin 2% Oint [Bactroban 2% Oint] 1 applic TOPICAL BID 7 Days #1 packet Amiodarone [Cordarone] 400 mg PO BID #35 tab Ferrous Sulfate [Iron (65 MG Elemental)] 325 mg PO BID-W/MEALS #14 tab Sennosides-Docusate Sodium [Senokot-S] 2 each PO HS PRN tab PRN Reason: Constipation Acetaminophen Tab [Tylenol] 650 mg PO Q4HR PRN tab PRN Reason: Fever And/ Or Mild Pain (1-3) Continue Fluticasone Nasal [place] [Flonase Nasal [place]] 1 spray INTRANASAL DAILY PRN PRN Reason: Allergy Symptoms Magnesium 1 dose PO DAILY Cholecalciferol [Vitamin D3 (25 Mcg = 1000 Iu)] 1 dose PO DAILY Calcium Carbonate [Tums] 500 mg PO DAILY PRN PRN Reason: Gi Upset Atorvastatin [Lipitor] 40 mg PO HS #0 sitaGLIPtin [Januvia] 25 mg PO DAILY Famotidine [Pepcid] 40 mg PO HS Zinc Gluconate [Zinc] 1 dose PO DAILY Thiamine [Vitamin B-1] 1 dose PO DAILY Cetirizine HCl [Zyrtec] 10 mg PO DAILY PRN PRN Reason: Allergy Symptoms Multivitamins, Thera [Multivitamin (formulary)] 1 tab PO DAILY Rivaroxaban [Xarelto] 20 mg PO DAILY #0 Discontinued Losartan [Cozaar] 50 mg PO DAILY Furosemide [Lasix] 20 mg PO DAILY Metoprolol Tartrate [Lopressor] 50 mg PO BID Discharge Medication List Calcium Carbonate [Tums] 500 mg PO DAILY PRN 03/22/25 [History] Cetirizine HCl [Zyrtec] 10 mg PO DAILY PRN 03/22/25 [History] Cholecalciferol [Vitamin D3 (25 Mcg = 1000 Iu)] 1 dose PO DAILY 03/22/25 [History] Famotidine [Pepcid] 40 mg PO HS 03/22/25 [History] Fluticasone Nasal [place] [Flonase Nasal [place]] 1 spray INTRANASAL DAILY PRN 03/22/25 [History] Magnesium 1 dose PO DAILY 03/22/25 [History] Multivitamins, Thera [Multivitamin (formulary)] 1 tab PO DAILY 03/22/25 [ History] Thiamine [Vitamin B-1] 1 dose PO DAILY 03/22/25 [History] Zinc Gluconate [Zinc] 1 dose PO DAILY 03/22/25 [History] sitaGLIPtin [Januvia] 25 mg PO DAILY 03/22/25 [History] Acetaminophen Tab [Tylenol] 650 mg PO Q4HR PRN tab 03/29/25 [Rx] Amiodarone [Cordarone] 400 mg PO BID #35 tab 03/29/25 [Rx] Ascorbic Acid [Vitamin C] 500 mg PO BID-W/MEALS #14 tab 03/29/25 [Rx] Aspirin 81 mg PO DAILY #30 tab 03/29/25 [Rx] Atorvastatin [Lipitor] 40 mg PO HS #0 03/29/25 [Rx] Cephalexin [Keflex] 500 mg PO BID #14 cap 03/29/25 [Rx] Ferrous Sulfate [Iron (65 MG Elemental)] 325 mg PO BID-W/MEALS #14 tab 03/29/25 [Rx] Metoprolol Tartrate [Lopressor] 25 mg PO BID #60 tab 03/29/25 [Rx] Mupirocin 2% Oint [Bactroban 2% Oint] 1 applic TOPICAL BID 7 Days #1 packet 03/29/25 [Rx] Pantoprazole [Protonix] 40 mg PO AC-BRKFST #30 tab 03/29/25 [Rx] Rivaroxaban [Xarelto] 20 mg PO DAILY #0 03/29/25 [Rx] Sennosides-Docusate Sodium [Senokot-S] 2 each PO HS PRN tab 03/29/25 [Rx] Follow up Appointment(s)/Referral(s): Arlet Ott NPC [Nurse Practitioner] - 04/07/25 9:00 am (You will be seen in the surgeon's office behind the hospital in [facility], [address] Office phone number is ) Garrett Cavanaugh MD [STAFF PHYSICIAN] - 04/07/25 8:00 am () Rehab Maddie DESAI,Cardiac [NON-STAFF] - 4 Weeks (You will receive a phone call in approximately 4-6 weeks for evaluation for cardiac rehab) James Ellis MD [STAFF PHYSICIAN] - 04/19/25 2:00 pm Awilda Shore DO [Primary Care Provider] - 04/09/25 2:00 pm (In the [place] office) Sidney Gomez DO [Doctor of Osteopathic Medicine] - 04/08/25 2:00 pm [facility], [NON-STAFF] - 1-2 Days (You should be seen by home care registered nurse the day after discharge, then 2-3 times per week until you start cardiac rehab. Physical and occupational therapy should visit at least once, may continue to visit if needed) Ambulatory/Diagnostic Orders: Complete Blood Count w/diff [LAB.AMB] Time Frame: 3 Days, Location: None Selected Comprehensive Metabolic Panel [LAB.AMB] Time Frame: 3 Days, Location: None Selected Patient Instructions/Handouts: *Surgery [facility] - After Heart Catheterization - Fastener Sewing Machine Operator Instructions, Coronary Artery Disease (DC), Moderate Sedation (DC), Fall Prevention (DC), After Radial Heart Catheterization (GEN) Activity/Diet/Wound Care/Special Instructions: DISCHARGE INSTRUCTIONS: 1. No driving for 4 weeks, or until physician gives their ok. 2. The patient should sleep in their own bed, no medical bed needed. 3. Stairs are not an issue. If the bedroom is upstairs, it is advised that the patient go up at night and down in the morning for the first week. Go slowly, using handrail and take 1 step at a time. 4. REJI hose are to be worn for 30 days post surgery or until physician discontinues. 5. Heart hugger is to be worn 100% of the time until physician discontinues.(except when showering) 6. No lifting, pushing, or pulling more than 10 pounds for 12 weeks. The physician will advise of any restriction changes. 7. The patient is expected to continue the prescribed walking program. 8. Continue pain control per as needed orders. 9. Continue with incentive spirometry and splinting/heart hugger until otherwise directed by the physician. 10. Must shower daily using liquid antibacterial soap 11. Routine sternal incision care. No powders, lotions, ointments on incisions. No dressings are necessary on incisions unless they are draining. Dermabond tape is to remain on sternal incision until surgeon follow-up. 12. Please call surgeon/PROP MAKER for temp greater than 101 F or purulent drainage from incisions. 13. You should weigh yourself daily, record and bring log with you to follow up appointments. 14. All prescriptions given by surgeon for 30 days. Refills need to be filled through county attorney/primary care physician. 15. A Red armband has been placed on the patient. It should be worn for 30 days post discharge from surgery and will be removed by the cardiac surgeons. If an ER visit is necessary, please make sure the number on the Red armband is called before going to ER. 16. You have been referred to and are expected to begin Cardiac Rehab in approximately 4-6 weeks. 17. Quitting smoking is the most important step you can take to improve your health. For additional information and assistance to quit smoking, please call the [place] tobacco quit line (5-762-EYKL-NOW/ ) or online: [email or web address] HOME HEALTH SERVICES TO PROVIDE: RN SKILLED HOME CARE SERVICES FOR POST-OP SURGICAL PATIENTS WITH THE FOLLOWING: Coronary Artery Bypass Surgery (CABG), Mitral Valve Replacement/Repair ( MVR), Aortic Valve Replacement/Repair (AVR) RN TO CONTINUE EDUCATION FROM ``ROAD TO A HEALTH HEART PATIENT EDUCATION MANUAL (GIVEN TO PATIENT IN THE HOSPITAL) MEDICATION RECONCILIATION WITH EDUCATION NEEDED ON FIRST HOME VISIT EMPHASIZE IMPORTANCE OF WEARING BREAST SUPPORT/HEART HUGGER ENCOURAGE USE OF INCENTIVE SPIROMETER 10 X EVERY HOUR WHILE AWAKE ENCOURAGE UTILIZATION OF LOWER EXTREMITY COMPRESSION STOCKINGS/REJI HOSE and ELEVATE LEGS ABOVE LEVEL OF HEART WHILE AT REST. ENCOURAGE AMBULATION 3-5x/day INCREASING TOLERATES, WHILE AVOIDING EXTR EMES IN TEMPERATURE FREQUENCY: RN TO OPEN THE PATIENT WITHIN 24 HOURS OF DISCHARGE FROM THE HOSPITAL WITH TELEHEALTH INSTALLED AT [facility], RN TO VISIT 2-3 X A WEEK FOR 4 WEEKS ESTABLISHED BY PATIENT NEEDS. LABORATORY: CBC, CMP TO BE DRAWN ON THE THIRD DAY HOME, (RAN STAT) FAX RESULTS TO [phone]. TELEHEALTH PARAMETERS: WEIGHT: NOTIFY MD OF WEIGHT GAIN OF 2 LBS IN 24 HOURS OR 5 LBS IN ONE WEEK HR: NOTIFY MD OF HR <55 BPM OR HR>100 BPM BP: NOTIFY MD IF BP <90/55 OR BP>140/100 O2 SAT: NOTIFY MD IF PO2<93% ON ROOM AIR SEND TELEHEALTH REPORT TO PATIENT CARE AND CARDIOVASCULAR SURGEON THE FIRST WEEK OF CARE AND THEN BI-WEEKLY. PLEASE ADDITIONALLY COMMUNICATE ANY ABNORMALS AND NEW FINDINGS TO THE SURGEONS OFFICE. Discharge Disposition: HOME WITH HOME HEALTH SERVICES
--- NOTE | 2025-03-29 15:57 | P.PN ---
Subjective Progress Note Date: 03/29/25 03/29/2025, patient is being seen for a follow-up with the patient is postop day #4. The patient underwent four-vessel bypass surgery including MONTEMAYOR to LAD and SVG to second diagonal, obtuse marginal, and PDA. The patient is doing well and the patient is currently on room air oxygen per using incentive spirometer and pulling approximately 1000. Creatinine is improved and is currently down to 1.76. She is doing well and she has no specific complaints. Ambulating. The white cell count is 16.4 with a heme of 7.6 and a platelet count of 181. BUN 53 with a creatinine of 1.76 and his sodium level is at 131. No other significant events overnight. The patient is calm and comfortable. Objective - Vital Signs Vital signs: Vital Signs Temp 97.9 F 03/29/25 08:00 Pulse 68 03/29/25 08:39 Resp 16 03/29/25 08:00 BP 132/58 03/29/25 08:00 Pulse Ox 95 03/29/25 08:00 FiO2 40 03/25/25 16:38 Intake & Output 03/28/25 03/29/25 03/29/25 18:59 06:59 18:59 Intake Total 440 120 Output Total 350 300 Balance 90 -180 Weight 107.3 kg Intake: Oral 440 120 Output: Urine 350 300 Other: Voiding Method Toilet Toilet # Voids 1 # Bowel Movements 1 ABP, PAP, CO, CI - Last Documented Arterial Blood Pressure 137/39 Pulmonary Artery Pressure 39/13 Cardiac Output 3.9 Cardiac Index 1.9 - Exam CONSTITUTIONAL: Appears comfortable, cooperative, no acute distress RESPIRATORY: Lungs sounds diminished in the bases bilaterally. Respirations even, nonlabored. Currently on room air with oxygen saturation 97%. Able to achieve 750-1000 mL on incentive spirometry. Strong cough. CARDIOVASCULAR: S1, S2 present. Regular rate and rhythm, sinus rhythm on telemetry. Sternum stable. Palpable peripheral pulses bilaterally. Bilateral lower extremity edema present. No calf pain or tenderness noted. Heart hugger in place with patient demonstrating appropriate use. Antiembolism stockings, SCDs present. GASTROINTESTINAL: Abdomen soft, nontender, nondistended. Active bowel sounds present 4 quadrants. Tolerating minimal diet. Positive bowel movement 03/28 GENITOURINARY: Continues to void INTEGUMENTARY: Skin is warm and dry. Anterior chest incision well approximated. Left lower extremity EVH site well approximated. Boil to right lateral chest cleaned out in the surgery and packed daily with iodoform gauze. Cyst under left breast covered with dry dressing NEUROLOGIC: Cranial nerves II through XII intact MUSKULOSKELETAL: Able to move all extremities, strength equal bilaterally PSYCHIATRIC: Alert and oriented to person place and time, appropriate affect, intact judgment and insight - Labs CBC & Chem 7: 03/29/25 04:04 03/29/25 04:04 Labs: Abnormal Lab Results - Last 24 Hours (Table) 03/28/25 03/28/25 03/28/25 Range/Units 11:19 16:19 19:53 WBC (4.50-10.00) 10*3/uL RBC (4.10-5.20) 10*6/uL Hgb (12.0-15.0) g/dL Hct (37.2-46.3) % Sodium (137-145) mmol/L BUN (7-17) mg/dL Creatinine (0.52-1.04) mg/dL Glucose (74-99) mg/dL POC Glucose (mg/dL) 191 H 117 H 153 H (70-110) mg/dL Magnesium (1.6-2.3) mg/dL 03/29/25 03/29/25 03/29/25 Range/Units 02:15 04:04 04:04 WBC 16.46 H (4.50-10.00) 10*3/uL RBC 2.67 L (4.10-5.20) 10*6/uL Hgb 7.6 L (12.0-15.0) g/dL Hct 23.5 L (37.2-46.3) % Sodium 131 L (137-145) mmol/L BUN 53 H (7-17) mg/dL Creatinine 1.76 H (0.52-1.04) mg/dL Glucose 125 H (74-99) mg/dL POC Glucose (mg/dL) 152 H (70-110) mg/dL Magnesium 2.6 H (1.6-2.3) mg/dL 03/29/25 Range/Units 06:01 WBC (4.50-10.00) 10*3/uL RBC (4.10-5.20) 10*6/uL Hgb (12.0-15.0) g/dL Hct (37.2-46.3) % Sodium (137-145) mmol/L BUN (7-17) mg/dL Creatinine (0.52-1.04) mg/dL Glucose (74-99) mg/dL POC Glucose (mg/dL) 150 H (70-110) mg/dL Magnesium (1.6-2.3) mg/dL Assessment and Plan Plan: Postoperative day #4, S/P four-vessel CABG. Postthoracotomy, currently on room air oxygen. Limited atelectatic changes lung base bilaterally. Acute kidney injury, improving and the creatinine is down to 1.76 Paroxysmal atrial fibrillation, currently on amiodarone, metoprolol and anticoagulation with Xarelto. Multivessel coronary artery disease, with anticipated CABG, March 25, 2025. History of hypertension. History of hyperlipidemia. History of paroxysmal atrial fibrillation. History of type 2 diabetes mellitus. History of valvular heart disease, with mild tricuspid valve regurgitation, and moderate mitral valve regurgitation. Obesity, with a BMI of 38.1 kg/m. Gastroesophageal reflux disease. Mild intermittent asthma. Lifelong non-smoker. Plan: Patient is stable on room air oxygen. Continue using incentive spirometer The patient will likely be discharged home on a combination of aspirin 81 mg p.o. daily. Amiodarone 4 mg p.o. twice a day Metoprolol 25 mg p.o. twice a day Resume anticoagulation with Xarelto regarding her paroxysmal atrial fibri llation. Januvia 25 mg p.o. daily Chest x-ray was noted and no significant abnormalities and the findings are essentially consistent with postsurgical changes. Will continue to follow on outpatient basis.
[2025-03-29] MEDS ORDERED: CEPHALEXIN 500 MG CAP PO SCH (21:00)
[2025-03-30] MEDS ORDERED: ASPIRIN 81 MG PO SCH (09:00)
== END 2025-03-29 15:13 | disposition home health service (06) | DRG 234 ==
LOC: CATHCVL 05:39 → 3SCARD 05:40 → 2SICU 03-25 08:06 → 3SCARD 03-27 18:44
PROVIDERS: ADMIT Thoracic Surgery (Cardiothoracic Vascular Surgery); ATTEND Thoracic Surgery (Cardiothoracic Vascular Surgery)
PROC: 4A023N7 Measurement of Cardiac Sampling and Pressure, Left Heart, Percutaneous Approach (ICD-10-PCS; 2025-03-23)
PROC: B2111ZZ Fluoroscopy of Multiple Coronary Arteries using Low Osmolar Contrast (ICD-10-PCS; 2025-03-23)
PROC: 06BQ4ZZ Excision of Left Saphenous Vein, Percutaneous Endoscopic Approach (ICD-10-PCS; 2025-03-25)
PROC: 02QA0ZZ Repair Heart, Open Approach (ICD-10-PCS; 2025-03-25)
PROC: 02L70CK Occlusion of Left Atrial Appendage with Extraluminal Device, Open Approach (ICD-10-PCS; 2025-03-25)
PROC: 5A1221Z Performance of Cardiac Output, Continuous (ICD-10-PCS; 2025-03-25)
PROC: B24BZZ4 Ultrasonography of Heart with Aorta, Transesophageal (ICD-10-PCS; 2025-03-25)
PROC: 02100Z9 Bypass Coronary Artery, One Artery from Left Internal Mammary, Open Approach (ICD-10-PCS; principal; 2025-03-25 08:00)
PROC: 02580ZZ Destruction of Conduction Mechanism, Open Approach (ICD-10-PCS; 2025-03-25 08:00)
PROC: 0212093 Bypass Coronary Artery, Three Arteries from Coronary Artery with Autologous Venous Tissue, Open Approach (ICD-10-PCS; 2025-03-25 08:00)
DX: I25.118 Atherosclerotic heart disease of native coronary artery with other forms of angina pectoris (principal); N17.9 Acute kidney failure, unspecified; D62 Acute posthemorrhagic anemia; D69.59 Other secondary thrombocytopenia; E11.9 Type 2 diabetes mellitus without complications; D72.829 Elevated white blood cell count, unspecified; E66.9 Obesity, unspecified; I10 Essential (primary) hypertension; I34.0 Nonrheumatic mitral (valve) insufficiency; J45.20 Mild intermittent asthma, uncomplicated; I70.0 Atherosclerosis of aorta; I48.0 Paroxysmal atrial fibrillation; E78.5 Hyperlipidemia, unspecified; L72.3 Sebaceous cyst; N61.1 Abscess of the breast and nipple; K21.9 Gastro-esophageal reflux disease without esophagitis; E87.70 Fluid overload, unspecified; Z68.38 Body mass index [BMI] 38.0-38.9, adult; Z87.19 Personal history of other diseases of the digestive system; Z79.01 Long term (current) use of anticoagulants; Z79.84 Long term (current) use of oral hypoglycemic drugs; Z79.899 Other long term (current) drug therapy; Z82.49 Family history of ischemic heart disease and other diseases of the circulatory system
CPT/HCPCS: 36430; 71045; 71046; 71250; 80048; 80053; 80061; 80074; 81003; 82330; 82805; 83036; 83735; 84443; 85025; 85027; 85610; 85730; 86850; 86891; 86900; 86901; 86920; 87070; 93306; 93458; 93880; 93970; 94002; 94150; 94640